=== PATIENT | male | born 1930 | race Caucasian/White ===

== ENCOUNTER 2016-07-22 20:46 | Inpatient (IN) | payer MEDICARE, MEDICAID ==
[2016-07-22] MEDS ORDERED: Furosemide 40 MG/4 ML VIAL IVPUSH ONE (21:32)
--- NOTE | 2016-07-22 21:33 | EDM.PDOC ---
ED HPI RENAL/ - General Chief Complaint: Genitourinary Problem Stated Complaint: [facility] Time Seen by Provider: 07/22/16 21:28 Source of Information: Reports: Family, pen[facility]iary records History Limitations: Reports: Altered mental status - History of Present Illness INITIAL COMMENTS - FREE TEXT/NARRATIVE: Patient was brought in by ambulance with concerns for labored breathing, hypoxia , occasional cough, cloudy urine, and pallor. Patient is non verbal and unable to provider any history. On review of medications, patient is not on any anticoagulants, no report of any trauma or recent similar history. In review of custodial records sent with patient, it appears that he was just started on prophylactic treatment with tamiflu on 07/14, taking once daily - Related Data Allergies/ADRs: Allergies Allergy/AdvReac Type Severity Reaction Status Date / Time levofloxacin [From Levaquin] Allergy Intermediate Rash Verified 07/23/16 00:44 Home Meds: Home Meds Acetaminophen [Acetaminophen 8 Hour] 650 mg PO BID 01/03/16 [History] Camphor/Menthol [Sarna Lotion] 1 applic TOP BID 01/03/16 [History] Docusate Sodium/Sennosides [Senna Plus] 2 tab PO BID 01/03/16 [History] Hydrocortisone Acetate [Hydrocortisone] 1 applic TP BID PRN 01/03/16 [History] Ketoconazole [Nizoral 2% Crm] 1 applic TOP DAILY 01/03/16 [History] Memantine [Namenda XR] 14 mg PO DAILY 01/03/16 [History] OLANZapine [Zyprexa] 15 mg PO BEDTIME 01/03/16 [History] Polyethylene Glycol 3350 [MiraLAX] 17 gm PO DAILY 01/03/16 [History] Potassium Chloride 20 meq PO DAILY 01/03/16 [History] Trospium Chloride 20 mg PO BID 01/03/16 [History] Insulin Aspart [NovoLOG] 2 units SQ 17 07/22/16 [History] Insulin Detemir [Levemir] 20 units SQ BID 07/22/16 [History] Oseltamivir [Tamiflu] 75 mg PO DAILY 07/22/16 [History] Aspirin 81 mg PO DAILY 07/23/16 [History] Bisacodyl [Dulcolax] 10 mg RECTAL DAILY PRN 07/23/16 [History] Cranberry Extract [Cranberry] 405 mg PO BID 07/23/16 [History] Menthol Cough Drops 1 lozenge PO Q2HR PRN 07/23/16 [History] Sennosides 17.2 mg PO DAILY PRN 07/23/16 [History] Zinc Oxide 1 applic TOP DAILY PRN 07/23/16 [History] Past Medical History HEENT History: Reports: Impaired vision Cardiovascular History: Reports: High cholesterol Respiratory History: Reports: COPD Genitourinary History: Reports: Prostate disorder, Retention, urinary Musculoskeletal History: Reports: Other (see below) Other Musculoskeletal History: spinal stenosis Neurological History: Reports: Other (see below) (Alzheimer dementia) Other Neuro History: dysphagia Psychiatric History: Reports: Alzheimers disease, Anxiety, Dementia, Depression Endocrine/Metabolic History: Reports: Diabetes, type II Oncologic (Cancer) History: Reports: Other (see below) (Skin cancer, NOS) Dermatologic History: Reports: Other (see below) Other Dermatologic History: freq skin breakdown, pt likes to scratch and pinch - Infectious Disease History Infectious Disease History: Reports: MRSA - Past Surgical History Male Surgical History: Reports: Suprapubic catheter placement Social & Family History - Family History Family Medical History: Unobtainable - Tobacco Use Smoking Status *Q: Never Smoker Second Hand Smoke Exposure: No - Caffeine Use Caffeine Use: Reports: None - Recreational Drug Use Recreational Drug Use: No - Living Situation & Occupation Living situation: Reports: extended care facility ED ROS GENERAL - Review of Systems Review Of Systems: See Below Constitutional: Denies: fever, chills Respiratory: Reports: Other (patient is nonverbal, brought in by ambulance with labored breathing, tachypnea, and occasional cough) Cardiovascular: Reports: No symptoms, Edema (patient with 3+ bilateral peripheral edema. ) GI/Abdominal: Reports: No symptoms : Reports: other (patient with indwelling catheter, urine was noted to be very cloudy) Skin: Reports: pallor Neurological: Reports: Other (patient is nonverbal) Psychiatric: Denies: Agitation ED EXAM, RENAL/ - Physical Exam Exam: See Below Exam Limited By: Altered mental status General Appearance: moderate distress, obese. No: alert, WD/WN Eye Exam: bilateral eye: other (has mild purulent discharge to medial canthus, no conjunctival injection or erythema, and PERRLA) Ears: hearing loss Throat/Mouth: No: Normal oropharynx (tongue is coated, oral mucosa is moist) Head: atraumatic Respiratory/Chest: decreased breath sounds (decreased breath sounds to right mid lung; left lower base. ). No: no respiratory distress (tachypnea at 36 resp /minute and patient is at 94% on 2L), rales, rhonchi, wheezing Cardiovascular: regular rate, rhythm, no murmur GI/Abdominal: normal bowel sounds, soft (Male) Exam: Other (indwelling catheter) Extremities: pedal edema (3+ bilateral pitting edema from distal feet to just inferior to knees). No: pallor Neurological: other (patient is non verbal, he is awake, alert, but unable to communicate). No: alert, oriented, normal cognition Skin Exam: Warm, Dry, Normal color, No rash. No: Cyanosis Course - Vital Signs Text/Narrative:: 2135 cxr, cbc, cmp, trop, crp, urine culture ordered lasix 40mg given for 3+ peripheral ed. 2240 patient is resting comfortably, Did review findings with family and advised I am awaiting troponin. Advised no acute findings on CXR, urine culture is pending, CBC showing mildly elevated WBC at 9.43. 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 She was agreeable to admission. I did advise of the following lab results: WBC 9.43 RBC 4.20 Hg 12.5 Sodium 145 K+ 3.8 Creatinine 1.0 Glucose 120 Troponin <.017 CRP 6.4 BNP 90 Did not test patient for influenza as he was started on tamiflu 75mg po once daily x 10 days on 07/14/16 due to recent outbreak at custodial. CXR does show a questionable small left sided pleural effusion, I do not appreciate any pulmonary consolidation, or pneumonia, however radiology report is pending. Image quality is decreased due to poor inspiratory effort. An EKG does not show any acute findings, do not have previous study for comparison Urine specimen obtained from catheter does reveal 2+ protein, 3+ occult blood, positive nitrites, 3+ leuk esterase, > 100 RBC, >100 WBC, and many bacteria. A urine culture is pending. patient was given lasix 40mg IV due to 3+ pitting edema to bilateral lower extremities. After speaking with Dr Arenas, she suggested patient remain NPO except for medications, and suggested starting levaquin 750mg which will be administered prior to transfer. Blood cultures are also pending. She did inquire about DNR status, and advised patient is a DNR. She inquired about DNI status, and this was discussed with family, and their wishes are that patient is intubated if medically necessary Patient will be transferred to [facility] for continuation of treatment under the care of Dr Arenas. 2357 Just following administration of levaquin, patient developed erythema, urticarial reaction surrounding IV site to dorsal aspect of left hand involving proximal phalanges #2, #3, #5. Does appear to be pruritic. Patient will be given benadryl 25mg IV. Patient had only received about 1/4 of dose of levaquin 750mg that was ordered, infusion had been running for approximately 15minutes before onset of local erythema and urticaria noted. Infusion was stopped. Will change medication to rocephin 2gm. Last Recorded V/S: Last Vital Signs Temp 98.2 F 07/23/16 12:56 Pulse 90 07/23/16 12:56 Resp 20 07/23/16 12:56 BP 142/68 H 07/23/16 12:56 Pulse Ox 90 L 07/23/16 12:56 - Orders/Labs/Meds Orders: Active Orders 24 hr Category Date Time Status CULTURE BLOOD [BC] Stat Lab 07/22/16 23:18 Received CULTURE BLOOD [BC] Stat Lab 07/22/16 23:30 Results CULTURE URINE [] Stat Lab 07/22/16 20:50 Results Medication Orders Acetaminophen (Tylenol) 650 mg PO BID [facility] Last Admin: 07/23/16 09:11 Dose: 650 mg Hydrocodone Bitart/Acetaminophen (Maynard 325-5 Mg) 1 tab PO Q4H PRN PRN Reason: Pain (moderate 4-6) Albuterol/Ipratropium (Duoneb 3.0-0.5 Mg/3 Ml) 3 ml NEB Q4H PRN PRN Reason: Shortness Of Breath/wheezing Aspirin (Aspirin) 81 mg PO DAILY [facility] Last Admin: 07/23/16 09:13 Dose: 81 mg Bisacodyl (Dulcolax) 10 mg RECTAL DAILY PRN PRN Reason: Constipation Dextrose/Water (Dextrose 50% In Water) 50 ml IVPUSH ASDIRECTED PRN PRN Reason: Hypoglycemia Enoxaparin Sodium (Lovenox) 40 mg SUBCUT DAILY [facility] Last Admin: 07/23/16 09:15 Dose: 40 mg Furosemide (Lasix) 20 mg IVPUSH DAILY [facility] Last Admin: 07/23/16 12:17 Dose: 20 mg Piperacillin Sod/Tazobactam (Sod 4.5 gm/ Sodium Chloride) 100 mls @ 25 mls/hr IV Q8H [facility] Insulin Aspart (Novolog) 2 unit SUBCUT ACDINNER [facility] Insulin Aspart (Novolog) 0 unit SUBCUT QIDACANDBED [facility] PRN Reason: Protocol Insulin Detemir (Levemir) 20 unit SUBCUT BID [facility] Last Admin: 07/23/16 09:21 Dose: 20 units Olanzapine (Zyprexa) 15 mg PO BEDTIME [facility] Ondansetron HCl (Zofran Odt) 4 mg PO Q4H PRN PRN Reason: nausea, able to take PO Ondansetron HCl (Zofran) 4 mg IV Q4H PRN PRN Reason: Nausea/Vomiting Camphor/Menthol 1 (Applic) 0 each TOP BID [facility] Last Admin: 07/23/16 09:16 Dose: Cranberry Extract [ (Cranberry] 405 Mg) 0 each PO BID [facility] Last Admin: 07/23/16 09:16 Dose: Ketoconazole 1 (Applic) 0 each TOP DAILY [facility] Last Admin: 07/23/16 09:17 Dose: Memantine 14 Mg 0 each PO DAILY [facility] Last Admin: 07/23/16 09:17 Dose: Polyethylene Glycol (Miralax) 17 gm PO DAILY [facility] Last Admin: 07/23/16 09:15 Dose: 17 gm Potassium Chloride (Klor-Con M20) 20 meq PO DAILY [facility] Last Admin: 07/23/16 09:11 Dose: 20 meq Saccharomyces Boulardii (Florastor) 250 mg PO BID [facility] Senna (Senna) 17.2 mg PO DAILY PRN PRN Reason: Constipation Senna/Docusate Sodium (Senna Plus) 2 tab PO BID PRN PRN Reason: CONSTIPATION Trospium (Sanctura) 20 mg PO BID [facility] Last Admin: 07/23/16 12:16 Dose: Labs: Laboratory Tests 07/22/16 07/22/16 07/22/16 Range/Units 20:50 21:40 21:40 WBC 9.43 H (4.23-9.07) K/mm3 RBC 4.20 L (4.63-6.08) M/mm3 Hgb 12.5 L (13.7-17.5) gm/L Hct 40.6 (40.1-51.0) % MCV 96.7 H (79.0-92.2) fl MCH 29.8 (25.7-32.2) pg MCHC 30.8 L (32.2-35.5) g/dl RDW Std Deviation 48.0 H (35.1-43.9) fL Plt Count 218 (163-337) K/mm3 MPV 10.1 (9.4-12.3) fl Neut % (Auto) 61.9 (34.0-67.9) % Lymph % (Auto) 18.7 L (21.8-53.1) % [place] % (Auto) 13.4 H (5.3-12.2) % Eos % (Auto) 5.3 (0.8-7.0) Baso % (Auto) 0.5 (0.1-1.2) % Neut # (Auto) 5.84 H (1.78-5.38) K/mm3 Lymph # (Auto) 1.76 (1.32-3.57) K/mm3 [place] # (Auto) 1.26 H (0.30-0.82) K/mm3 Eos # (Auto) 0.50 (0.04-0.54) K/mm3 Baso # (Auto) 0.05 (0.01-0.08) K/mm3 Sodium 145 (136-145) mEq/L Potassium 3.8 (3.5-5.1) mEq/L Chloride 108 H (98-107) mEq/L Carbon Dioxide 29 (21-32) mEq/L Anion Gap 11.8 (5-15) BUN 23 H (7-18) mg/dL Creatinine 1.0 (0.7-1.3) mg/dL Est Cr Clr Drug Dosing 50.35 mL/min Estimated GFR (MDRD) > 60 (>60) mL/min BUN/Creatinine Ratio 23.0 H (14-18) Glucose 120 H (83-115) mg/dL Calcium 8.8 (8.5-10.1) mg/dL Total Bilirubin 0.4 (0.2-1.0) mg/dL AST 15 (15-37) U/L ALT 13 L (16-63) U/L Alkaline Phosphatase 57 (46-116) U/L Troponin I < 0.017 (0.00-0.056) ng/mL C-Reactive Protein 6.4 H* (<1.0) mg/dL B-Natriuretic Peptide (0-100) pg/mL Total Protein 7.3 (6.4-8.2) g/dl Albumin 3.3 L (3.4-5.0) g/dl Globulin 4.0 gm/dL Albumin/Globulin Ratio 0.8 L (1-2) Urine Color Yellow (Yellow) Urine Appearance Cloudy H (Clear) Urine pH 6.0 (5.0-8.0) Ur Specific [place] 1.025 (1.005-1.030) Urine Protein 2+ H (Negative) Urine Glucose (UA) Negative (Negative) Urine Ketones Negative (Negative) Urine Occult Blood 3+ H (Negative) Urine Nitrite Positive H (Negative) Urine Bilirubin Negative (Negative) Urine Urobilinogen 1.0 (0.2-1.0) Ur Leukocyte Esterase 3+ H (Negative) Urine RBC >100 H (0-5) /hpf Urine WBC >100 H (0-5) /hpf Urine WBC Clumps Many (NOT SEEN) /hpf Ur Epithelial Cells 0-5 (0-5) /hpf Urine Bacteria Many H (FEW) /hpf Urine Mucus Not seen (FEW) /hpf 07/22/16 Range/Units 21:40 WBC (4.23-9.07) K/mm3 RBC (4.63-6.08) M/mm3 Hgb (13.7-17.5) gm/L Hct (40.1-51.0) % MCV (79.0-92.2) fl MCH (25.7-32.2) pg MCHC (32.2-35.5) g/dl RDW Std Deviation (35.1-43.9) fL Plt Count (163-337) K/mm3 MPV (9.4-12.3) fl Neut % (Auto) (34.0-67.9) % Lymph % (Auto) (21.8-53.1) % [place] % (Auto) (5.3-12.2) % Eos % (Auto) (0.8-7.0) Baso % (Auto) (0.1-1.2) % Neut # (Auto) (1.78-5.38) K/mm3 Lymph # (Auto) (1.32-3.57) K/mm3 [place] # (Auto) (0.30-0.82) K/mm3 Eos # (Auto) (0.04-0.54) K/mm3 Baso # (Auto) (0.01-0.08) K/mm3 Sodium (136-145) mEq/L Potassium (3.5-5.1) mEq/L Chloride (98-107) mEq/L Carbon Dioxide (21-32) mEq/L Anion Gap (5-15) BUN (7-18) mg/dL Creatinine (0.7-1.3) mg/dL Est Cr Clr Drug Dosing mL/min Estimated GFR (MDRD) (>60) mL/min BUN/Creatinine Ratio (14-18) Glucose (83-115) mg/dL Calcium (8.5-10.1) mg/dL Total Bilirubin (0.2-1.0) mg/dL AST (15-37) U/L ALT (16-63) U/L Alkaline Phosphatase (46-116) U/L Troponin I (0.00-0.056) ng/mL C-Reactive Protein (<1.0) mg/dL B-Natriuretic Peptide 90 (0-100) pg/mL Total Protein (6.4-8.2) g/dl Albumin (3.4-5.0) g/dl Globulin gm/dL Albumin/Globulin Ratio (1-2) Urine Color (Yellow) Urine Appearance (Clear) Urine pH (5.0-8.0) Ur Specific [place] (1.005-1.030) Urine Protein (Negative) Urine Glucose (UA) (Negative) Urine Ketones (Negative) Urine Occult Blood (Negative) Urine Nitrite (Negative) Urine Bilirubin (Negative) Urine Urobilinogen (0.2-1.0) Ur Leukocyte Esterase (Negative) Urine RBC (0-5) /hpf Urine WBC (0-5) /hpf Urine WBC Clumps (NOT SEEN) /hpf Ur Epithelial Cells (0-5) /hpf Urine Bacteria (FEW) /hpf Urine Mucus (FEW) /hpf Meds: Medications Generic Name Dose Route Start Last Admin Trade Name Freq PRN Reason Stop Dose Admin Acetaminophen 650 mg 07/23/16 09:00 07/23/16 09:11 Tylenol PO 650 mg BID [facility] Administration Hydrocodone Bitart/Acetaminophen 1 tab 07/23/16 09:41 Maynard 325-5 Mg PO Q4H PRN Pain (moderate 4-6) Albuterol/Ipratropium 3 ml 07/23/16 09:41 Duoneb 3.0-0.5 Mg/3 Ml NEB Q4H PRN Shortness Of Breath/wheezing Aspirin 81 mg 07/23/16 09:00 07/23/16 09:13 Aspirin PO 81 mg DAILY [facility] Administration Bisacodyl 10 mg 07/23/16 08:33 Dulcolax RECTAL DAILY PRN Constipation Dextrose/Water 50 ml 07/23/16 11:02 Dextrose 50% In Water IVPUSH ASDIRECTED PRN Hypoglycemia Enoxaparin Sodium 40 mg 07/23/16 09:00 07/23/16 09:15 Lovenox SUBCUT 40 mg DAILY [facility] Administration Furosemide 20 mg 07/23/16 10:30 07/23/16 12:17 Lasix IVPUSH 20 mg DAILY [facility] Administration Piperacillin Sod/Tazobactam 100 mls @ 25 mls/hr 07/23/16 20:00 Sod 4.5 gm/ Sodium Chloride IV Q8H [facility] Insulin Aspart 2 unit 07/23/16 16:00 Novolog SUBCUT ACDINNER [facility] Insulin Aspart 0 unit 07/23/16 17:00 Novolog SUBCUT QIDACANDBED [facility] Protocol Insulin Detemir 20 unit 07/23/16 09:00 07/23/16 09:21 Levemir SUBCUT 20 units BID [facility] Administration Olanzapine 15 mg 07/23/16 21:00 Zyprexa PO BEDTIME [facility] Ondansetron HCl 4 mg 07/23/16 09:41 Zofran Odt PO Q4H PRN nausea, able to take PO Ondansetron HCl 4 mg 07/23/16 09:41 Zofran IV Q4H PRN Nausea/Vomiting Camphor/Menthol 1 0 each 07/23/16 09:00 07/23/16 09:16 Applic TOP Not Given BID [facility] Cranberry Extract [ 0 each 07/23/16 09:00 07/23/16 09:16 Cranberry] 405 Mg PO Not Given BID [facility] Ketoconazole 1 0 each 07/23/16 09:00 07/23/16 09:17 Applic TOP Not Given DAILY [facility] Memantine 14 Mg 0 each 07/23/16 09:00 07/23/16 09:17 PO Not Given DAILY [facility] Polyethylene Glycol 17 gm 07/23/16 09:00 07/23/16 09:15 Miralax PO 17 gm DAILY [facility] Administration Potassium Chloride 20 meq 07/23/16 09:00 07/23/16 09:11 Klor-Con M20 PO 20 meq DAILY [facility] Administration Saccharomyces Boulardii 250 mg 07/23/16 21:00 Florastor PO BID [facility]ON Senna 17.2 mg 07/23/16 08:33 Senna PO DAILY PRN Constipation Senna/Docusate Sodium 2 tab 07/23/16 09:00 Senna Plus PO BID PRN CONSTIPATION Trospium 20 mg 07/23/16 09:00 07/23/16 12:16 Sanctura PO Not Given BID [facility] Discontinued Medications Generic Name Dose Route Start Last Admin Trade Name Galoq PRN Reason Stop Dose Admin Diphenhydramine HCl 25 mg 07/22/16 23:54 07/22/16 23:57 Benadryl IVPUSH 07/22/16 23:55 25 mg ONETIME ONE Administration Diphenhydramine HCl Confirm 07/22/16 23:56 07/22/16 23:57 Benadryl Administered 07/22/16 23:57 Not Given Dose 50 mg .ROUTE .STK-MED ONE Furosemide 40 mg 07/22/16 21:32 07/22/16 21:47 Lasix IVPUSH 07/22/16 21:33 40 mg NOW ONE Administration Furosemide 20 mg 07/23/16 01:39 07/23/16 02:32 Lasix IVPUSH 07/23/16 01:40 20 mg ONETIME ONE Administration Levofloxacin/Dextrose 750 mg/ 150 mls @ 100 mls/hr 07/22/16 23:30 07/22/16 23 :31 Premix IV 100 mls/hr Q24H [facility]ON Administration Ceftriaxone Sodium 2 gm/ 100 mls @ 200 mls/hr 07/23/16 00:10 07/23/16 00:16 Sodium Chloride IV 07/23/16 00:39 200 mls/hr ONETIME ONE Administration Ceftriaxone Sodium 1 gm/ 100 mls @ 200 mls/hr 07/23/16 10:30 07/23/16 12:29 Sodium Chloride IV Not Given Q24H [facility]OON Piperacillin Sod/Tazobactam 100 mls @ 200 mls/hr 07/23/16 12:00 07/23/16 12: 26 Sod 4.5 gm/ Sodium Chloride IV 07/23/16 12:29 200 mls/hr ONETIME ONE Administration Departure - Departure Time of Disposition: 23:30 Disposition: Admitted As Inpatient 65 Condition: fair Clinical Impression: Acute UTI, Hypoxia, Peripheral edema, Tachypnea - My Orders Last 24 Hours: My Active Orders 07/22/16 20:50 CULTURE URINE [RM] Stat 07/22/16 23:18 CULTURE BLOOD [BC] Stat 07/22/16 23:30 CULTURE BLOOD [BC] Stat - Assessment/Plan Last 24 Hours: My Active Orders 07/22/16 20:50 CULTURE URINE [RM] Stat 07/22/16 23:18 CULTURE BLOOD [BC] Stat 07/22/16 23:30 CULTURE BLOOD [BC] Stat
[2016-07-22] MEDS ORDERED: Levofloxacin 750 MG Tab PO SCH (23:15)
[2016-07-22] MEDS ORDERED: Levofloxacin/Dextrose 5%-Water 750 MG in Premix Bag 1 BAG IV SCH (23:30)
[2016-07-22] MEDS ORDERED: diphenhydrAMINE 50 MG/ML SDV IVPUSH ONE (23:54)
[2016-07-22] MEDS ORDERED: diphenhydrAMINE 50 MG/ML SDV ONE (23:56)
[2016-07-23] MEDS ORDERED: cefTRIAXone 2 GM in Sodium Chloride 0.9% 100 ML IV ONE (00:10)
[2016-07-23] MEDS ORDERED: Furosemide 20 MG/2 ML VIAL IVPUSH ONE (01:39)
--- NOTE | 2016-07-23 06:45 | CR ---
Chest: Portable view of the chest was obtained. Comparison: Previous chest x-ray of 05/23/11. Heart size is normal. Upper mediastinum is widened which is stable. Minimal atelectasis noted within the left base. Lungs otherwise are clear. Bony structures are grossly intact. Impression: 1. Mild atelectasis within the left base. 2. Nothing acute is otherwise seen on frontal chest x-ray. Diagnostic code #2
[2016-07-23] MEDS ORDERED: Bisacodyl 10 MG Supp RECTAL PRN (08:33)
[2016-07-23] MEDS ORDERED: Sennosides 8.6 MG Tab PO PRN (08:33)
[2016-07-23] MEDS: Potassium Chloride 20 MEQ Tab.ER PO SCH (09:11)
[2016-07-23] MEDS: Acetaminophen 325 MG Tab PO SCH ×2 (09:11→20:14)
[2016-07-23] MEDS: Aspirin 81 MG Tab.Chew PO SCH (09:13)
[2016-07-23] MEDS: Polyethylene Glycol 3350 Powder 17 GM Packet PO SCH (09:15)
[2016-07-23] MEDS: Enoxaparin 40 MG/0.4 ML Syringe SUBCUT SCH (09:15)
[2016-07-23] MEDS: CRANBERRY EXTRACT 405 MG PO SCH ×2 (09:16→20:03)
[2016-07-23] MEDS: CAMPHOR TOP SCH ×2 (09:16→20:03)
[2016-07-23] MEDS: MENTHOL TOP SCH ×2 (09:16→20:03)
[2016-07-23] MEDS: MEMANTINE 14 MG PO SCH (09:17)
[2016-07-23] MEDS: KETOCONAZOLE TOP SCH (09:17)
[2016-07-23] MEDS: Insulin Detemir 100 Units/ML 3 ML Pen SUBCUT SCH ×2 (09:21→20:59)
[2016-07-23] MEDS ORDERED: Ondansetron 4 MG/2 ML SDV IV PRN (09:41)
[2016-07-23] MEDS ORDERED: Albuterol/Ipratropium 3.0-0.5 MG/3 ML Neb Soln NEB PRN (09:41)
[2016-07-23] MEDS ORDERED: Acetaminophen/HYDROcodone 325-5 MG Tab PO PRN (09:41)
[2016-07-23] MEDS ORDERED: Ondansetron 4 MG Tab.DIS PO PRN (09:41)
[2016-07-23] MEDS ORDERED: cefTRIAXone 1 GM in Sodium Chloride 0.9% 100 ML IV SCH (10:30)
--- NOTE | 2016-07-23 10:41 | PCM.HP ---
H&P History of Present Illness - General Date of Service: 07/23/16 Admit Problem/Dx: Admission Diagnosis/Problem Admission Diagnosis/Problem UTI, Urinary tract infectious disease Source of Information: Old records, Other History Limitations: Reports: Altered mental status (dementia), Language barrier (nonverbal due to end stage dementia), Physical impairment - History of Present Illness Initial Comments - Free Text/Narative: Mr Dumont is an 86yo male resident of [facility], PMH significant for alzheimers dementia, DM insulin dependent, BPH, obstructive uropathy, chronic suprapubic catheter, recurrent UTI, dysphagia (level 3 diet at [place]), hx of anemia , COPD, HLD, hx of skin cancer, brought in for fever, generalized weakness- worsening, cough. There has been a flu epidemic at the [place] where he resides, he has been on prophylactic tamiflu x 8 days. He came into ED hypoxic and tachypnic. He has 3+ edema to LE, rec'd IV lasix in the ED along with Rocephin IV to initiate tx for UTI. ER evaluation reveals AUTI with hematuria, hospitalist service is consulted for admission. - Related Data Allergies/Adverse Reactions: Allergies Allergy/AdvReac Type Severity Reaction Status Date / Time levofloxacin [From Levaquin] Allergy Intermediate Rash Verified 07/23/16 00:44 Home Medications: Home Meds Acetaminophen [Acetaminophen 8 Hour] 650 mg PO BID 01/03/16 [History] Camphor/Menthol [Sarna Lotion] 1 applic TOP BID 01/03/16 [History] Docusate Sodium/Sennosides [Senna Plus] 2 tab PO BID 01/03/16 [History] Hydrocortisone Acetate [Hydrocortisone] 1 applic TP BID PRN 01/03/16 [History] Ketoconazole [Nizoral 2% Crm] 1 applic TOP DAILY 01/03/16 [History] Memantine [Namenda XR] 14 mg PO DAILY 01/03/16 [History] OLANZapine [Zyprexa] 15 mg PO BEDTIME 01/03/16 [History] Polyethylene Glycol 3350 [MiraLAX] 17 gm PO DAILY 01/03/16 [History] Potassium Chloride 20 meq PO DAILY 01/03/16 [History] Trospium Chloride 20 mg PO BID 01/03/16 [History] Insulin Aspart [NovoLOG] 2 units SQ 17 07/22/16 [History] Insulin Detemir [Levemir] 20 units SQ BID 07/22/16 [History] Oseltamivir [Tamiflu] 75 mg PO DAILY 07/22/16 [History] Aspirin 81 mg PO DAILY 07/23/16 [History] Bisacodyl [Dulcolax] 10 mg RECTAL DAILY PRN 07/23/16 [History] Cranberry Extract [Cranberry] 405 mg PO BID 07/23/16 [History] Menthol Cough Drops 1 lozenge PO Q2HR PRN 07/23/16 [History] Sennosides 17.2 mg PO DAILY PRN 07/23/16 [History] Zinc Oxide 1 applic TOP DAILY PRN 07/23/16 [History] Past Medical History HEENT History: Reports: Impaired vision Cardiovascular History: Reports: High cholesterol Respiratory History: Reports: COPD Gastrointestinal History: Reports: Chronic constipation Genitourinary History: Reports: BPH, Prostate disorder, Pyelonephritis, Retention, urinary, UTI, recurrent, Other (see below) Other Genitourinary History: obstructive and reflux uropathy Musculoskeletal History: Reports: Other (see below) Other Musculoskeletal History: spinal stenosis, generalized weakness, fall, difficulty walking, chronic pain Neurological History: Reports: Alzheimers disease, Other (see below) Other Neuro History: dysphagia, dementia Psychiatric History: Reports: Alzheimers disease, Anxiety, Dementia, Depression , Schizophrenia, Other (see below) Other Psychiatric History: insomnia Endocrine/Metabolic History: Reports: Diabetes, type II Oncologic (Cancer) History: Reports: Other (see below) Other Oncologic History: hx malignant neoplasm of skin to face Dermatologic History: Reports: Other (see below) Other Dermatologic History: freq skin breakdown, pt likes to scratch and pinch - Infectious Disease History Infectious Disease History: Reports: MRSA - Past Surgical History Male Surgical History: Reports: Suprapubic catheter placement Social & Family History - Family History Family Medical History: Unobtainable - Tobacco Use Smoking Status *Q: Unknown Ever Smoked Second Hand Smoke Exposure: No - Caffeine Use Caffeine Use: Reports: None - Recreational Drug Use Recreational Drug Use: No - Living Situation & Occupation Living situation: Reports: extended care facility H&P Review of Systems - Review of Systems: Review Of Systems: See Below General: Reports: fever, weakness HEENT: Reports: no symptoms Pulmonary: Reports: Cough Cardiovascular: Reports: edema (3+ documented in ED notes and currently). Denies: chest pain Gastrointestinal: Denies: Diarrhea, Vomiting Genitourinary: Reports: other (suprapubic catheter) Neurological: Reports: Other (end stage dementia; nonverbal) Exam - Exam Exam: See Below - Vital Signs Vital Signs: Last Vital Signs Temp 98.4 F 07/23/16 09:11 Pulse 76 07/23/16 07:40 Resp 20 07/23/16 07:40 BP 149/88 H 07/23/16 07:40 Pulse Ox 91 L 07/23/16 07:40 Weight: 284 lb 4.8 oz - Exam Quality Assessment: urinary catheter (suprapubic), DVT prophylaxis General: alert, other (no obvious distress) HEENT: Conjunctiva clear, EOMI, Pupils equal Neck: supple Lungs: Normal respiratory effort, Decreased breath sounds (to bases) Cardiovascular: regular rate, regular rhythm, systolic murmur (grade 1-2) Abdomen: normal bowel sounds, soft. No: organomegaly, guarding, rigidity, rebound, tenderness (Male) Exam: Other (suprapubic site is with mild erythema, moist and with small amt of light yellow drainage from site). No: Suprapubic fullness Rectal (Males) Exam: Deferred Extremities: edema (3+ pitting edema from feet to knees) Peripheral Pulses: 1+: dorsalis pedis (L), dorsalis pedis (R) Skin: warm, dry, intact Neurological: other (difficult to assess due to end stage dementia) Neuro Extensive - Mental Status: alert, other (awake and alert; unable to determine orientation status due to dementia) Psychiatric: alert - Patient Data Lab Results last 24 hrs: Laboratory Results - last 24 hr 07/23/16 07/23/16 Range/Units 09:08 09:08 WBC 11.04 H (4.23-9.07) K/mm3 RBC 4.64 (4.63-6.08) M/mm3 Hgb 13.9 (13.7-17.5) gm/L Hct 44.7 (40.1-51.0) % MCV 96.3 H (79.0-92.2) fl MCH 30.0 (25.7-32.2) pg MCHC 31.1 L (32.2-35.5) g/dl RDW Std Deviation 48.0 H (35.1-43.9) fL Plt Count 194 (163-337) K/mm3 MPV 9.9 (9.4-12.3) fl Neut % (Auto) 69.0 H (34.0-67.9) % Lymph % (Auto) 14.8 L (21.8-53.1) % [place] % (Auto) 12.8 H (5.3-12.2) % Eos % (Auto) 2.6 (0.8-7.0) Baso % (Auto) 0.6 (0.1-1.2) % Neut # (Auto) 7.62 H (1.78-5.38) K/mm3 Lymph # (Auto) 1.63 (1.32-3.57) K/mm3 [place] # (Auto) 1.41 H (0.30-0.82) K/mm3 Eos # (Auto) 0.29 (0.04-0.54) K/mm3 Baso # (Auto) 0.07 (0.01-0.08) K/mm3 Sodium 147 H (136-145) mEq/L Potassium 3.2 L (3.5-5.1) mEq/L Chloride 107 (98-107) mEq/L Carbon Dioxide 32 (21-32) mEq/L Anion Gap 11.2 (5-15) BUN 19 H (7-18) mg/dL Creatinine 1.0 (0.7-1.3) mg/dL Est Cr Clr Drug Dosing 50.35 mL/min Estimated GFR (MDRD) > 60 (>60) mL/min BUN/Creatinine Ratio 19.0 H (14-18) Glucose 113 (83-115) mg/dL Calcium 8.8 (8.5-10.1) mg/dL Magnesium 2.0 (1.8-2.4) mg/dl C-Reactive Protein 9.7 H* (<1.0) mg/dL Result Diagrams: 07/23/16 09:08 07/23/16 09:08 EKG INTERPRETATION EKG Date: 07/22/16 Time: 21:40 Rhythm: other (sinus rhythm; 1st degree AVB; PVC's, probable old septal infarct ; no prior EKG for comparison) Comparison: NA - no prior EKG *Q Meaningful Use (ADM) - VTE *Q VTE Criteria *Q: - Stroke *Q Stroke Criteria *Q: - AMI *Q AMI Criteria *Q: - Problem List (1) Acute UTI SNOMED Code(s): 464360647 ICD Code: N39.0 - URINARY TRACT INFECTION, SITE NOT SPECIFIED Status: Acute Priority: High Current Visit: Yes (2) Hematuria SNOMED Code(s): 89686328 ICD Code: R31.9 - HEMATURIA, UNSPECIFIED Status: Acute Priority: High Current Visit: Yes (3) Alzheimer's dementia SNOMED Code(s): 57751531 ICD Code: G30.9 - ALZHEIMER'S DISEASE, UNSPECIFIED Status: Chronic Priority: Medium Current Visit: No Qualifiers: Alzheimer's disease onset: unspecified onset Dementia behavioral disturbance: without behavioral disturbance Qualified Code(s): G30.9 - Alzheimer's disease, unspecified; F02.80 - Dementia in other diseases classified elsewhere without behavioral disturbance (4) Suprapubic catheter SNOMED Code(s): 013157613, 831741719 ICD Code: Z93.59 - OTHER CYSTOSTOMY STATUS Status: Chronic Priority: Medium Current Visit: Yes (5) Obstructive uropathy SNOMED Code(s): 4785405 ICD Code: N13.9 - OBSTRUCTIVE AND REFLUX UROPATHY, UNSPECIFIED Status: Chronic Priority: Medium Current Visit: Yes (6) Hypoxia SNOMED Code(s): 584791098, 416686396 ICD Code: R09.02 - HYPOXEMIA Status: Acute Priority: High Current Visit : Yes (7) Peripheral edema SNOMED Code(s): 829751924 ICD Code: R60.9 - EDEMA, UNSPECIFIED Status: Acute Priority: High Current Visit: Yes (8) Tachypnea SNOMED Code(s): 783105882 ICD Code: R06.82 - TACHYPNEA, NOT ELSEWHERE CLASSIFIED Status: Acute Priority: High Current Visit: Yes Problem List Initiated/Reviewed/Updated: Yes Orders Last 24hrs: Active Orders 24 hr Category Date Time Status Patient Status [ADT] Routine ADT 07/23/16 09:42 Ordered Antiembolic Devices [RC] PER UNIT ROUTINE Care 07/23/16 09:48 Ordered Blood Glucose Check, Bedside [RC] QIDACANDBED Care 07/23/16 09:41 Ordered Height and Weight [RC] DAILY Care 07/23/16 09:41 Ordered Intake and Output [RC] QSHIFT Care 07/23/16 09:44 Ordered Oxygen Therapy [RC] ASDIRECTED Care 07/23/16 01:40 Active Oxygen Therapy [RC] PRN Care 07/23/16 09:42 Ordered RT Aerosol Therapy [RC] ASDIRECTED Care 07/23/16 09:48 Ordered Up to Chair [RC] QSHIFT Care 07/23/16 09:41 Ordered VTE/DVT Education [RC] PER UNIT ROUTINE Care 07/23/16 09:42 Ordered Vital Signs [RC] Q4H Care 07/23/16 09:42 Ordered Consult to Case Management [CONS] Routine Cons 07/23/16 09:41 Ordered Consult to Porcelain Enamel Repairer [CONS] Routine Cons 07/23/16 09:41 Ordered MOTION PICTURE CRITIC Evaluation and Treatment [CONS] Routine Cons 07/23/16 09:41 Ordered Nothing per Oral Now Diet [DIET] Diet 07/23/16 Lunch Ordered Echo Comp wo Cont [US] Routine Exams 07/23/16 10:22 Ordered B-TYPE NATRIURETIC PEPTIDE,BNP [CHEM] Routine Lab 07/23/16 10:24 Ordered BASIC METABOLIC PANEL,BMP [CHEM] DAILY Lab 07/24/16 05:00 Ordered BASIC METABOLIC PANEL,BMP [CHEM] DAILY Lab 07/25/16 05:00 Ordered BASIC METABOLIC PANEL,BMP [CHEM] DAILY Lab 07/26/16 05:00 Ordered BASIC METABOLIC PANEL,BMP [CHEM] DAILY Lab 07/27/16 05:00 Ordered BASIC METABOLIC PANEL,BMP [CHEM] DAILY Lab 07/28/16 05:00 Ordered C-REACTIVE PROTEIN [CHEM] DAILY Lab 07/24/16 05:00 Ordered C-REACTIVE PROTEIN [CHEM] DAILY Lab 07/25/16 05:00 Ordered C-REACTIVE PROTEIN [CHEM] DAILY Lab 07/26/16 05:00 Ordered C-REACTIVE PROTEIN [CHEM] DAILY Lab 07/27/16 05:00 Ordered C-REACTIVE PROTEIN [CHEM] DAILY Lab 07/28/16 05:00 Ordered CBC W/O DIFF,HEMOGRAM [HEME] MOTH@0700 Lab 07/24/16 07:00 Ordered CBC W/O DIFF,HEMOGRAM [HEME] MOTH@0700 Lab 07/28/16 07:00 Ordered CBC W/O DIFF,HEMOGRAM [HEME] MOTH@0700 Lab 07/31/16 07:00 Ordered CBC W/O DIFF,HEMOGRAM [HEME] MOTH@0700 Lab 08/04/16 07:00 Ordered CBC W/O DIFF,HEMOGRAM [HEME] MOTH@0700 Lab 08/07/16 07:00 Ordered CBC W/O DIFF,HEMOGRAM [HEME] MOTH@0700 Lab 08/11/16 07:00 Ordered CBC WITH AUTO DIFF [HEME] DAILY Lab 07/24/16 05:00 Ordered CBC WITH AUTO DIFF [HEME] DAILY Lab 07/25/16 05:00 Ordered CBC WITH AUTO DIFF [HEME] DAILY Lab 07/26/16 05:00 Ordered CBC WITH AUTO DIFF [HEME] DAILY Lab 07/27/16 05:00 Ordered CBC WITH AUTO DIFF [HEME] DAILY Lab 07/28/16 05:00 Ordered MAGNESIUM [CHEM] DAILY Lab 07/24/16 05:00 Ordered MAGNESIUM [CHEM] DAILY Lab 07/25/16 05:00 Ordered MAGNESIUM [CHEM] DAILY Lab 07/26/16 05:00 Ordered MAGNESIUM [CHEM] DAILY Lab 07/27/16 05:00 Ordered MAGNESIUM [CHEM] DAILY Lab 07/28/16 05:00 Ordered Acetaminophen [Tylenol] Med 07/23/16 09:00 Active 650 mg PO BID Acetaminophen/HYDROcodone [[place] 325-5 MG] Med 07/23/16 09:41 Ordered 1 tab PO Q4H PRN Albuterol/Ipratropium [DuoNeb 3.0-0.5 MG/3 ML] Med 07/23/16 09:41 Ordered 3 ml NEB Q4H PRN Aspirin Med 07/23/16 09:00 Active 81 mg PO DAILY Bisacodyl [Dulcolax] Med 07/23/16 08:33 Active 10 mg RECTAL DAILY PRN Docusate Sodium/Sennosides [Senna Plus] Med 07/23/16 09:00 Active 2 tab PO BID PRN Enoxaparin [Lovenox] Med 07/23/16 09:00 Active 40 mg SUBCUT DAILY Furosemide [Lasix] Med 07/23/16 10:30 Ordered 20 mg IVPUSH DAILY Insulin Aspart [NovoLOG] Med 07/23/16 16:00 Active 2 unit SUBCUT ACDINNER Insulin Detemir [Levemir] Med 07/23/16 09:00 Active 20 unit SUBCUT BID OLANZapine [ZyPREXA] Med 07/23/16 21:00 Active 15 mg PO BEDTIME Ondansetron [Zofran ODT] Med 07/23/16 09:41 Ordered 4 mg PO Q4H PRN Ondansetron [Zofran] Med 07/23/16 09:41 Ordered 4 mg IV Q4H PRN Patient's Own Medication [Ptom] Med 07/23/16 09:00 Active 0 each PO BID Patient's Own Medication [Ptom] Med 07/23/16 09:00 Active 0 each PO DAILY Patient's Own Medication [Ptom] Med 07/23/16 09:00 Active 0 each TOP BID Patient's Own Medication [Ptom] Med 07/23/16 09:00 Active 0 each TOP DAILY Polyethylene Glycol 3350 [MiraLAX] Med 07/23/16 09:00 Active 17 gm PO DAILY Potassium Chloride [Klor-Con M20] Med 07/23/16 09:00 Active 20 meq PO DAILY Sennosides [Senna] Med 07/23/16 08:33 Active 17.2 mg PO DAILY PRN Trospium [Sanctura] Med 07/23/16 09:00 Active 20 mg PO BID cefTRIAXone [Rocephin] 1 gm Med 07/23/16 10:30 Ordered Sodium Chloride 0.9% [Normal Saline] 100 ml IV Q24H Antiembolic Hose [OM.PC] Per Unit Routine Oth 07/23/16 09:45 Ordered Resuscitation Status Routine Resus Stat 07/22/16 23:56 Ordered Medication Orders Acetaminophen (Tylenol) 650 mg PO BID [facility] Last Admin: 07/23/16 09:11 Dose: 650 mg Hydrocodone Bitart/Acetaminophen ([place] 325-5 Mg) 1 tab PO Q4H PRN PRN Reason: Pain (moderate 4-6) Albuterol/Ipratropium (Duoneb 3.0-0.5 Mg/3 Ml) 3 ml NEB Q4H PRN PRN Reason: Shortness Of Breath/wheezing Aspirin (Aspirin) 81 mg PO DAILY [facility] Last Admin: 07/23/16 09:13 Dose: 81 mg Bisacodyl (Dulcolax) 10 mg RECTAL DAILY PRN PRN Reason: Constipation Enoxaparin Sodium (Lovenox) 40 mg SUBCUT DAILY [facility] Last Admin: 07/23/16 09:15 Dose: 40 mg Furosemide (Lasix) 20 mg IVPUSH DAILY [facility] Ceftriaxone Sodium 1 gm/ (Sodium Chloride) 100 mls @ 200 mls/hr IV Q24H [facility] Insulin Aspart (Novolog) 2 unit SUBCUT ACDINNER [facility] Insulin Detemir (Levemir) 20 unit SUBCUT BID [facility] Last Admin: 07/23/16 09:21 Dose: 20 units Olanzapine (Zyprexa) 15 mg PO BEDTIME [facility] Ondansetron HCl (Zofran Odt) 4 mg PO Q4H PRN PRN Reason: nausea, able to take PO Ondansetron HCl (Zofran) 4 mg IV Q4H PRN PRN Reason: Nausea/Vomiting Camphor/Menthol 1 (Applic) 0 each TOP BID [facility] Last Admin: 07/23/16 09:16 Dose: Cranberry Extract [ (Cranberry] 405 Mg) 0 each PO BID [facility] Last Admin: 07/23/16 09:16 Dose: Ketoconazole 1 (Applic) 0 each TOP DAILY [facility] Last Admin: 07/23/16 09:17 Dose: Memantine 14 Mg 0 each PO DAILY [facility] Last Admin: 07/23/16 09:17 Dose: Polyethylene Glycol (Miralax) 17 gm PO DAILY [facility] Last Admin: 07/23/16 09:15 Dose: 17 gm Potassium Chloride (Klor-Con M20) 20 meq PO DAILY [facility] Last Admin: 07/23/16 09:11 Dose: 20 meq Senna (Senna) 17.2 mg PO DAILY PRN PRN Reason: Constipation Senna/Docusate Sodium (Senna Plus) 2 tab PO BID PRN PRN Reason: CONSTIPATION Trospium (Sanctura) 20 mg PO BID [facility] Assessment/Plan Comment:: AUTI with chronic suprapubic catheter due to obstructive uropathy/BPH -Rocephin given in ED, will continue with this until UC/US returned -Risk factors: suprapubic cath, bedbound status, end stage dementia, dysphagia- with likely poor PO intake -Nursing to do daily dressing change to cath site -UC with GNR as preliminary Tachypnea with hypoxia -Supplemental oxygen- improved, continue with supplemental oxygen PRN -CXR with mild atelectasis -Recent flu exposure at [place], has been on prophylactic tamiflu x 8 days; will obtain flu screen Peripheral edema -Significant to bilateral lower extremities -Diuresed well with IV lasix overnight -Will obtain BNP and echocardiogram today -Cont with lasix for now, may transition to PO lasix tomorrow -Monitor K+ and Mg- replace if needed DM- type 2 -AC & HS accuchecks - Cont home insulin -SSI during hospital stay -A1C today Alzheimers dementia with dysphagia- chronic -MOTION PICTURE CRITIC for swallow eval; NPO until after eval/recommendations GI/DVT prophylax CM/SW for dc planning- plan dc back to [place] once stable Cont with daily am labs: CBC, BMP, CRP and Mag Patient is DNR but does wish DNI if needed.
[2016-07-23] MEDS ORDERED: 50% Dextrose in Water 50 ML Syringe IVPUSH PRN (11:02)
[2016-07-23] MEDS ORDERED: Piperacillin/Tazobactam 4.5 GM in Sodium Chloride 0.9% 100 ML IV ONE (12:00)
[2016-07-23] MEDS: Trospium 20 MG Tab PO SCH ×2 (12:16→20:18)
[2016-07-23] MEDS: Furosemide 20 MG/2 ML VIAL IVPUSH SCH (12:17)
[2016-07-23] MEDS: Insulin Aspart 100 Units/ML 3 ML Pen SUBCUT SCH ×3 (16:28→20:59)
[2016-07-23] MEDS: OLANZapine 5 MG Tab PO SCH (20:14)
[2016-07-23] MEDS: Saccharomyces Boulardii (Probiotic) 250 MG Cap PO SCH (20:16)
[2016-07-23] MEDS: Piperacillin/Tazobactam 4.5 GM in Sodium Chloride 0.9% 100 ML IV SCH (20:18)
[2016-07-24] MEDS: Piperacillin/Tazobactam 4.5 GM in Sodium Chloride 0.9% 100 ML IV SCH ×3 (04:04→22:05)
[2016-07-24] MEDS: Insulin Aspart 100 Units/ML 3 ML Pen SUBCUT SCH ×5 (06:22→22:07)
[2016-07-24] MEDS: Trospium 20 MG Tab PO SCH ×2 (08:50→22:06)
[2016-07-24] MEDS: Acetaminophen 325 MG Tab PO SCH ×2 (08:50→22:07)
[2016-07-24] MEDS: Aspirin 81 MG Tab.Chew PO SCH (08:50)
[2016-07-24] MEDS: Saccharomyces Boulardii (Probiotic) 250 MG Cap PO SCH ×2 (08:52→22:06)
[2016-07-24] MEDS: Enoxaparin 40 MG/0.4 ML Syringe SUBCUT SCH (08:52)
[2016-07-24] MEDS: Furosemide 20 MG/2 ML VIAL IVPUSH SCH (08:52)
[2016-07-24] MEDS: Polyethylene Glycol 3350 Powder 17 GM Packet PO SCH (08:52)
[2016-07-24] MEDS: Insulin Detemir 100 Units/ML 3 ML Pen SUBCUT SCH ×2 (08:53→22:08)
[2016-07-24] MEDS: CRANBERRY EXTRACT 405 MG PO SCH ×2 (08:54→22:09)
[2016-07-24] MEDS: Potassium Chloride 20 MEQ Tab.ER PO SCH (08:54)
[2016-07-24] MEDS: CAMPHOR TOP SCH ×2 (08:54→22:09)
[2016-07-24] MEDS: MEMANTINE 14 MG PO SCH (08:54)
[2016-07-24] MEDS: KETOCONAZOLE TOP SCH (08:54)
[2016-07-24] MEDS: MENTHOL TOP SCH ×2 (08:54→22:09)
[2016-07-24] MEDS ORDERED: Potassium Chloride 10% 20 MEQ/15 ML Soln 30 ML UD Cup PO ONE (09:43)
[2016-07-24] MEDS ORDERED: Saccharomyces Boulardii (Probiotic) 250 MG Cap PO SCH (10:45)
[2016-07-24] MEDS ORDERED: Oseltamivir 30 MG Cap PO SCH (12:00)
--- NOTE | 2016-07-24 12:38 | PCM.PN ---
- General Info Date of Service: 07/24/16 Admission Dx/Problem (Free Text): Admission Diagnosis/Problem Admission Diagnosis/Problem UTI, Urinary tract infectious disease Dominic is an 86yo male admitted through ER with AUTI- ecoli organism on UC. He is being treated with IV Zosyn thus far. He has been febrile overnight. 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 He is resting comfortably on my exam this morning, appears in no acute distress. Does not make eye contact or any sort of communication. Lab called this am with report that 3/4 bottles for blood cultures are + for GNR , no organism or sensitivity yet. UC is + for ecoli. Last evening flu A and B returned positive also. CRP continues to trend up and is 14.7 this am. Functional Status: Reports: urinating (suprapubic cath draining urine) - Review of Systems General: Reports: Fever Pulmonary: Denies: shortness of breath (appears to have no SOB on visual exam), cough Systems Review Comment:: Difficult or unable to obtain as he is nonverbal. - Patient Data Vitals - most recent: Last Vital Signs Temp 98.4 F 07/24/16 11:29 Pulse 70 07/24/16 11:29 Resp 20 07/24/16 02:32 BP 112/79 07/24/16 11:29 Pulse Ox 91 L 07/24/16 11:29 Weight - most recent: 278 lb 6.4 oz I&O - last 24 hours: Intake & Output 07/23/16 07/24/16 07/24/16 22:59 06:59 14:59 Intake Total 350 0 360 Output Total 1075 250 Balance -725 -250 360 Lab Results last 24 hrs: Laboratory Results - last 24 hr 07/23/16 07/23/16 07/24/16 Range/Units 16:25 20:22 05:57 WBC 7.65 (4.23-9.07) K/mm3 RBC 4.49 L (4.63-6.08) M/mm3 Hgb 13.3 L (13.7-17.5) gm/L Hct 43.1 (40.1-51.0) % MCV 96.0 H (79.0-92.2) fl MCH 29.6 (25.7-32.2) pg MCHC 30.9 L (32.2-35.5) g/dl RDW Std Deviation 47.8 H (35.1-43.9) fL Plt Count 207 (163-337) K/mm3 MPV 10.4 (9.4-12.3) fl Neut % (Auto) 75.2 H (34.0-67.9) % Lymph % (Auto) 12.2 L (21.8-53.1) % [place] % (Auto) 10.8 (5.3-12.2) % Eos % (Auto) 1.3 (0.8-7.0) Baso % (Auto) 0.4 (0.1-1.2) % Neut # (Auto) 5.75 H (1.78-5.38) K/mm3 Lymph # (Auto) 0.93 L (1.32-3.57) K/mm3 [place] # (Auto) 0.83 H (0.30-0.82) K/mm3 Eos # (Auto) 0.10 (0.04-0.54) K/mm3 Baso # (Auto) 0.03 (0.01-0.08) K/mm3 Sodium (136-145) mEq/L Potassium (3.5-5.1) mEq/L Chloride (98-107) mEq/L Carbon Dioxide (21-32) mEq/L Anion Gap (5-15) BUN (7-18) mg/dL Creatinine (0.7-1.3) mg/dL Est Cr Clr Drug Dosing mL/min Estimated GFR (MDRD) (>60) mL/min BUN/Creatinine Ratio (14-18) Glucose (83-115) mg/dL POC Glucose 129 H 117 H (83-110) mg/dL Calcium (8.5-10.1) mg/dL Magnesium (1.8-2.4) mg/dl C-Reactive Protein (<1.0) mg/dL 07/24/16 07/24/16 07/24/16 Range/Units 05:57 06:21 11:23 WBC (4.23-9.07) K/mm3 RBC (4.63-6.08) M/mm3 Hgb (13.7-17.5) gm/L Hct (40.1-51.0) % MCV (79.0-92.2) fl MCH (25.7-32.2) pg MCHC (32.2-35.5) g/dl RDW Std Deviation (35.1-43.9) fL Plt Count (163-337) K/mm3 MPV (9.4-12.3) fl Neut % (Auto) (34.0-67.9) % Lymph % (Auto) (21.8-53.1) % [place] % (Auto) (5.3-12.2) % Eos % (Auto) (0.8-7.0) Baso % (Auto) (0.1-1.2) % Neut # (Auto) (1.78-5.38) K/mm3 Lymph # (Auto) (1.32-3.57) K/mm3 [place] # (Auto) (0.30-0.82) K/mm3 Eos # (Auto) (0.04-0.54) K/mm3 Baso # (Auto) (0.01-0.08) K/mm3 Sodium 149 H (136-145) mEq/L Potassium 3.2 L (3.5-5.1) mEq/L Chloride 109 H (98-107) mEq/L Carbon Dioxide 30 (21-32) mEq/L Anion Gap 13.2 (5-15) BUN 24 H (7-18) mg/dL Creatinine 1.0 (0.7-1.3) mg/dL Est Cr Clr Drug Dosing 50.35 mL/min Estimated GFR (MDRD) > 60 (>60) mL/min BUN/Creatinine Ratio 24.0 H (14-18) Glucose 112 (83-115) mg/dL POC Glucose 124 H 142 H (83-110) mg/dL Calcium 8.7 (8.5-10.1) mg/dL Magnesium 2.0 (1.8-2.4) mg/dl C-Reactive Protein 14.7 H* (<1.0) mg/dL Donis Results last 24 hrs: Microbiology 07/22/16 23:30 Aerobic Blood Culture - Preliminary Blood NO GROWTH AFTER 1 DAY Anaerobic Blood Culture - Preliminary Gram Negative Rods 07/23/16 16:30 Influenza Type A Antigen Screen - Final Nasal, Right Positive Influenza A Ag Influenza Type B Antigen Screen - Final Positive Influenza B Ag 07/22/16 23:18 Aerobic Blood Culture - Preliminary Blood Gram Negative Rods Anaerobic Blood Culture - Preliminary Gram Negative Rods Med Orders - Current: Current Medications Acetaminophen (Tylenol) 650 mg PO BID [facility] Last Admin: 07/24/16 08:50 Dose: 650 mg Hydrocodone Bitart/Acetaminophen (Haworth 325-5 Mg) 1 tab PO Q4H PRN PRN Reason: Pain (moderate 4-6) Albuterol/Ipratropium (Duoneb 3.0-0.5 Mg/3 Ml) 3 ml NEB Q4H PRN PRN Reason: Shortness Of Breath/wheezing Aspirin (Aspirin) 81 mg PO DAILY [facility] Last Admin: 07/24/16 08:50 Dose: 81 mg Bisacodyl (Dulcolax) 10 mg RECTAL DAILY PRN PRN Reason: Constipation Last Admin: 07/24/16 06:18 Dose: 10 mg Budesonide (Pulmicort) 0.5 mg NEB BIDRT [facility] Dextrose/Water (Dextrose 50% In Water) 50 ml IVPUSH ASDIRECTED PRN PRN Reason: Hypoglycemia Enoxaparin Sodium (Lovenox) 40 mg SUBCUT DAILY [facility] Last Admin: 07/24/16 08:52 Dose: 40 mg Furosemide (Lasix) 20 mg IVPUSH DAILY [facility] Last Admin: 07/24/16 08:52 Dose: 20 mg Piperacillin Sod/Tazobactam (Sod 4.5 gm/ Sodium Chloride) 100 mls @ 25 mls/hr IV Q8H [facility] Last Admin: 07/24/16 11:23 Dose: 25 mls/hr Insulin Aspart (Novolog) 2 unit SUBCUT ACDINNER [facility] Last Admin: 07/23/16 16:28 Dose: 2 units Insulin Aspart (Novolog) 0 unit SUBCUT QIDACANDBED [facility] PRN Reason: Protocol Last Admin: 07/24/16 11:24 Dose: Not Given Insulin Detemir (Levemir) 20 unit SUBCUT BID [facility] Last Admin: 07/24/16 08:53 Dose: 20 units Levalbuterol HCl (Xopenex) 1.25 mg NEB TID [facility] Olanzapine (Zyprexa) 15 mg PO BEDTIME [facility] Last Admin: 07/23/16 20:14 Dose: 15 mg Ondansetron HCl (Zofran Odt) 4 mg PO Q4H PRN PRN Reason: nausea, able to take PO Ondansetron HCl (Zofran) 4 mg IV Q4H PRN PRN Reason: Nausea/Vomiting Oseltamivir Phosphate (Tamiflu) 30 mg PO BID [facility] Camphor/Menthol 1 (Applic) 0 each TOP BID [facility] Last Admin: 07/24/16 08:54 Dose: Not Given Cranberry Extract [ (Cranberry] 405 Mg) 0 each PO BID [facility] Last Admin: 07/24/16 08:54 Dose: Not Given Ketoconazole 1 (Applic) 0 each TOP DAILY [facility] Last Admin: 07/24/16 08:54 Dose: Not Given Memantine 14 Mg 0 each PO DAILY [facility] Last Admin: 07/24/16 08:54 Dose: Not Given Polyethylene Glycol (Miralax) 17 gm PO DAILY [facility] Last Admin: 07/24/16 08:52 Dose: 17 gm Potassium Chloride (Klor-Con M20) 20 meq PO BID [facility] Saccharomyces Boulardii (Florastor) 250 mg PO BID [facility] Last Admin: 07/24/16 08:52 Dose: 250 mg Senna (Senna) 17.2 mg PO DAILY PRN PRN Reason: Constipation Senna/Docusate Sodium (Senna Plus) 2 tab PO BID PRN PRN Reason: CONSTIPATION Trospium (Sanctura) 20 mg PO BID [facility] Last Admin: 07/24/16 08:50 Dose: 20 mg Discontinued Medications Diphenhydramine HCl (Benadryl) 25 mg IVPUSH ONETIME ONE Stop: 07/22/16 23:55 Last Admin: 07/22/16 23:57 Dose: 25 mg Diphenhydramine HCl (Benadryl) Confirm Administered Dose 50 mg .ROUTE .STK-MED ONE Stop: 07/22/16 23:57 Last Admin: 07/22/16 23:57 Dose: Not Given Furosemide (Lasix) 40 mg IVPUSH NOW ONE Stop: 07/22/16 21:33 Last Admin: 07/22/16 21:47 Dose: 40 mg Furosemide (Lasix) 20 mg IVPUSH ONETIME ONE Stop: 07/23/16 01:40 Last Admin: 07/23/16 02:32 Dose: 20 mg Levofloxacin/Dextrose 750 mg/ (Premix) 150 mls @ 100 mls/hr IV Q24H [facility] Last Admin: 07/22/16 23:31 Dose: 100 mls/hr Ceftriaxone Sodium 2 gm/ (Sodium Chloride) 100 mls @ 200 mls/hr IV ONETIME ONE Stop: 07/23/16 00:39 Last Admin: 07/23/16 00:16 Dose: 200 mls/hr Ceftriaxone Sodium 1 gm/ (Sodium Chloride) 100 mls @ 200 mls/hr IV Q24H [facility] Last Admin: 07/23/16 12:29 Dose: Not Given Piperacillin Sod/Tazobactam (Sod 4.5 gm/ Sodium Chloride) 100 mls @ 200 mls/hr IV ONETIME ONE Stop: 07/23/16 12:29 Last Admin: 07/23/16 12:26 Dose: 200 mls/hr Oseltamivir Phosphate (Tamiflu) 30 mg PO BID [facility] Stop: 07/29/16 09:01 Potassium Chloride (Klor-Con M20) 20 meq PO DAILY [facility] Last Admin: 07/24/16 08:54 Dose: 20 meq Potassium Chloride (Potassium Chloride) 40 meq PO ONETIME ONE Stop: 07/24/16 09:44 Last Admin: 07/24/16 09:55 Dose: 40 meq Saccharomyces Boulardii (Florastor) 250 mg PO BID [facility] Last Admin: 07/24/16 10:51 Dose: Not Given - Exam Quality Assessment: supplemental oxygen, DVT prophylaxis General: no acute distress HEENT: Pupils equal, EOMI, Mucous membr. moist/pink Neck: supple Lungs: Normal respiratory effort, Decreased breath sounds (throughout; unable to follow commands for deep breathing), Rhonchi (to right mid to lower becerril) Cardiovascular: Regular Rate, Regular Rhythm, Other (distant heart tones) Abdomen: bowel sounds present, soft, no tenderness (no apparent tenderness to palpation). No: rebound, guarding, distension (Male) Exam: Other (suprapubic catheter, site is without drainage today, minimal redness, dressing in place is CDI. Draining straw colored urine- less sediment noted today) Extremities: edema (2+ to mid tibia/ankles/pedal bilat- teds bilat; improved from yesterday) Peripheral Pulses: 1+: dorsalis pedis (L), dorsalis pedis (R) Skin: warm, dry Neurological: other (difficult to assess as is nonverbal/noncommunicative) Psy/Mental Status: alert, other (difficult to assess; resting comfortably, no aparent distress) - Problem List & Annotations (1) Acute UTI SNOMED Code(s): 381911164 Code(s): N39.0 - URINARY TRACT INFECTION, SITE NOT SPECIFIED Status: Acute Priority: High Current Visit: Yes (2) Hematuria SNOMED Code(s): 35922964 Code(s): R31.9 - HEMATURIA, UNSPECIFIED Status: Acute Priority: High Current Visit: Yes (3) Alzheimer's dementia SNOMED Code(s): 63460326 Code(s): G30.9 - ALZHEIMER'S DISEASE, UNSPECIFIED Status: Chronic Priority: Medium Current Visit: No Qualifiers: Alzheimer's disease onset: unspecified onset Dementia behavioral disturbance: without behavioral disturbance Qualified Code(s): G30.9 - Alzheimer's disease, unspecified; F02.80 - Dementia in other diseases classified elsewhere without behavioral disturbance (4) Suprapubic catheter SNOMED Code(s): 018308473, 785365074 Code(s): Z93.59 - OTHER CYSTOSTOMY STATUS Status: Chronic Priority: Medium Current Visit: Yes (5) Obstructive uropathy SNOMED Code(s): 7830650 Code(s): N13.9 - OBSTRUCTIVE AND REFLUX UROPATHY, UNSPECIFIED Status: Chronic Priority: Medium Current Visit: Yes (6) Hypoxia SNOMED Code(s): 872668639, 576461581 Code(s): R09.02 - HYPOXEMIA Status: Acute Priority: High Current Visit : Yes (7) Peripheral edema SNOMED Code(s): 829744912 Code(s): R60.9 - EDEMA, UNSPECIFIED Status: Acute Priority: High Current Visit: Yes (8) Tachypnea SNOMED Code(s): 894119968 Code(s): R06.82 - TACHYPNEA, NOT ELSEWHERE CLASSIFIED Status: Acute Priority: High Current Visit: Yes (9) Influenza SNOMED Code(s): 8765423 Code(s): J11.1 - FLU DUE TO UNIDENTIFIED INFLUENZA VIRUS W OTH RESP MANIFEST Status: Acute Priority: High Current Visit: Yes Annotation/Comment:: A and B positive (10) Bacteremia SNOMED Code(s): 6001130 Code(s): R78.81 - BACTEREMIA Status: Acute Priority: High Current Visit : Yes Annotation/Comment:: GNR thus far; awaiting further ID and sensitivity - Problem List Review Problem List Initiated/Reviewed/Updated: Yes - My Orders Last 24 Hours: My Active Orders 07/23/16 16:00 Insulin Aspart [NovoLOG] 2 unit SUBCUT ACDINNER 07/23/16 17:00 Insulin Aspart [NovoLOG] See Protocol SUBCUT QIDACANDBED 07/23/16 21:00 OLANZapine [ZyPREXA] 15 mg PO BEDTIME Saccharomyces Boulardii [Florastor] 250 mg PO BID 07/24/16 10:14 OT Evaluation and Treatment [CONS] Routine PT Evaluation and Treatment [CONS] Routine 07/24/16 12:31 RT Aerosol Therapy [RC] ASDIRECTED 07/24/16 12:32 RT Aerosol Therapy [RC] ASDIRECTED 07/24/16 15:00 Levalbuterol HCl [Xopenex] 1.25 mg NEB TID 07/24/16 21:00 Budesonide [Pulmicort] 0.5 mg NEB BIDRT Oseltamivir [Tamiflu] 30 mg PO BID 07/25/16 05:00 BASIC METABOLIC PANEL,BMP [CHEM] DAILY C-REACTIVE PROTEIN [CHEM] DAILY CBC WITH AUTO DIFF [HEME] DAILY MAGNESIUM [CHEM] DAILY 07/25/16 09:00 Potassium Chloride [Klor-Con M20] 20 meq PO BID 07/26/16 05:00 BASIC METABOLIC PANEL,BMP [CHEM] DAILY C-REACTIVE PROTEIN [CHEM] DAILY CBC WITH AUTO DIFF [HEME] DAILY MAGNESIUM [CHEM] DAILY 07/27/16 05:00 BASIC METABOLIC PANEL,BMP [CHEM] DAILY C-REACTIVE PROTEIN [CHEM] DAILY CBC WITH AUTO DIFF [HEME] DAILY MAGNESIUM [CHEM] DAILY 07/28/16 05:00 BASIC METABOLIC PANEL,BMP [CHEM] DAILY C-REACTIVE PROTEIN [CHEM] DAILY CBC WITH AUTO DIFF [HEME] DAILY MAGNESIUM [CHEM] DAILY - Plan Plan:: AUTI with chronic suprapubic catheter due to obstructive uropathy/BPH Now also with Bacteremia- 3/4 BC bottles + for GNR -Rocephin given in ED, Per chart review in the past has been resistant; changed to zosyn yesterday. Now with bacteremia and minimal response thus far will add IV doxycycline to cover other atypicals pending sensitivity -Risk factors: suprapubic cath, bedbound status, end stage dementia, dysphagia- with likely poor PO intake -Nursing to do daily dressing change to cath site -UC with GNR- ecoli, pending sensitivity Tachypnea with hypoxia-- Influenza A and B + -Supplemental oxygen- improved, continue with supplemental oxygen PRN -CXR with mild atelectasis -Tamiflu BID x 5 days -Pulmicort neb BID -Xopenex neb TID -Patient unable to cooperate with IS/C&DB and acapella due to advanced dementia Peripheral edema-- improved today -Significant to bilateral lower extremities -Diuresed well with IV lasix thus far -BNP 97; echocardiogram results pending -Cont with lasix for now, may transition to PO lasix tomorrow -Monitor K+ and Mg- replace if needed DM- type 2 -AC & HS accuchecks - Cont home insulin -SSI during hospital stay -A1C - 5.8 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 This is a very poor prognosis for him overall; in combination he is unable to cooperate with RT tx for best optimal outcome (IS/acapella/C&DB) from respiratory standpoint due to advanced dementia. Risk for pneumonia is high. Will discuss with his PCP Dr. Espinoza today and update family. Patient is DNR but does wish DNI if needed.
[2016-07-24] MEDS: Levalbuterol HCl 1.25 MG/3 ML Neb NEB SCH ×2 (13:18→20:53)
[2016-07-24] MEDS ORDERED: Levalbuterol HCl 1.25 MG/3 ML Neb NEB SCH (15:00)
[2016-07-24] MEDS: Budesonide 0.5 MG/2 ML Neb Susp NEB SCH (20:53)
[2016-07-24] MEDS: Oseltamivir 30 MG Cap PO SCH (22:06)
[2016-07-24] MEDS: OLANZapine 5 MG Tab PO SCH (22:06)
[2016-07-24] MEDS: Sulfamethoxazole/Trimethoprim 800-160 MG Tab PO SCH (22:06)
[2016-07-25] MEDS: Piperacillin/Tazobactam 4.5 GM in Sodium Chloride 0.9% 100 ML IV SCH (05:41)
[2016-07-25] MEDS: Budesonide 0.5 MG/2 ML Neb Susp NEB SCH ×2 (05:56→20:21)
[2016-07-25] MEDS: Levalbuterol HCl 1.25 MG/3 ML Neb NEB SCH ×3 (05:56→20:21)
[2016-07-25] MEDS: Insulin Aspart 100 Units/ML 3 ML Pen SUBCUT SCH ×5 (06:32→22:12)
[2016-07-25] MEDS: Trospium 20 MG Tab PO SCH ×2 (08:38→22:21)
--- NOTE | 2016-07-25 08:38 | PCM.PN ---
<Flaquita Restrepo M - Last Filed: 07/25/16 13:06> - General Info Date of Service: 07/25/16 Admission Dx/Problem (Free Text): Admission Diagnosis/Problem Admission Diagnosis/Problem UTI, Urinary tract infectious disease Dominic is an 86yo male admitted through ER with AUTI- ecoli organism on UC. He is being treated with IV Zosyn, changed to Rocephin due to sensitivity. He has been febrile overnight. 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 He is resting comfortably in chair on my exam this morning, appears in no acute distress. Does not make eye contact or any sort of communication. VSS. Labs improved this morning. WBC improved, CRP down slightly. Functional Status: Reports: tolerating diet, urinating (suprapubic catheter, chronic). Denies: ambulating, new symptoms - Review of Systems General: Reports: No Symptoms Pulmonary: Denies: shortness of breath Systems Review Comment:: ROS: unable to obtain due to dementia and noncommunicative; appears in no pain. - Patient Data Vitals - most recent: Last Vital Signs Temp 97.9 F 07/25/16 08:35 Pulse 88 07/25/16 08:35 Resp 17 07/25/16 08:35 BP 119/68 07/25/16 08:35 Pulse Ox 92 L 07/25/16 08:35 Weight - most recent: 125.787 kg I&O - last 24 hours: Intake & Output 07/24/16 07/25/16 07/25/16 22:59 06:59 14:59 Intake Total 605 340 Output Total 600 450 Balance 5 -110 Lab Results last 24 hrs: Laboratory Results - last 24 hr 07/24/16 07/24/16 07/24/16 Range/Units 11:23 17:22 21:52 WBC (4.23-9.07) K/mm3 RBC (4.63-6.08) M/mm3 Hgb (13.7-17.5) gm/L Hct (40.1-51.0) % MCV (79.0-92.2) fl MCH (25.7-32.2) pg MCHC (32.2-35.5) g/dl RDW Std Deviation (35.1-43.9) fL Plt Count (163-337) K/mm3 MPV (9.4-12.3) fl Neut % (Auto) (34.0-67.9) % Lymph % (Auto) (21.8-53.1) % [place] % (Auto) (5.3-12.2) % Eos % (Auto) (0.8-7.0) Baso % (Auto) (0.1-1.2) % Neut # (Auto) (1.78-5.38) K/mm3 Lymph # (Auto) (1.32-3.57) K/mm3 [place] # (Auto) (0.30-0.82) K/mm3 Eos # (Auto) (0.04-0.54) K/mm3 Baso # (Auto) (0.01-0.08) K/mm3 Manual Slide Review Sodium (136-145) mEq/L Potassium (3.5-5.1) mEq/L Chloride (98-107) mEq/L Carbon Dioxide (21-32) mEq/L Anion Gap (5-15) BUN (7-18) mg/dL Creatinine (0.7-1.3) mg/dL Est Cr Clr Drug Dosing mL/min Estimated GFR (MDRD) (>60) mL/min BUN/Creatinine Ratio (14-18) Glucose (83-115) mg/dL POC Glucose 142 H 147 H 196 H (83-110) mg/dL Calcium (8.5-10.1) mg/dL Magnesium (1.8-2.4) mg/dl C-Reactive Protein (<1.0) mg/dL 07/25/16 07/25/16 07/25/16 Range/Units 06:18 06:21 06:21 WBC 6.75 (4.23-9.07) K/mm3 RBC 4.82 (4.63-6.08) M/mm3 Hgb 14.3 (13.7-17.5) gm/L Hct 46.0 (40.1-51.0) % MCV 95.4 H (79.0-92.2) fl MCH 29.7 (25.7-32.2) pg MCHC 31.1 L (32.2-35.5) g/dl RDW Std Deviation 47.8 H (35.1-43.9) fL Plt Count 205 (163-337) K/mm3 MPV 10.2 (9.4-12.3) fl Neut % (Auto) 54.5 (34.0-67.9) % Lymph % (Auto) 24.9 (21.8-53.1) % [place] % (Auto) 15.4 H (5.3-12.2) % Eos % (Auto) 4.4 (0.8-7.0) Baso % (Auto) 0.4 (0.1-1.2) % Neut # (Auto) 3.67 (1.78-5.38) K/mm3 Lymph # (Auto) 1.68 (1.32-3.57) K/mm3 [place] # (Auto) 1.04 H (0.30-0.82) K/mm3 Eos # (Auto) 0.30 (0.04-0.54) K/mm3 Baso # (Auto) 0.03 (0.01-0.08) K/mm3 Manual Slide Review Normal smear Sodium 148 H (136-145) mEq/L Potassium 3.2 L (3.5-5.1) mEq/L Chloride 109 H (98-107) mEq/L Carbon Dioxide 32 (21-32) mEq/L Anion Gap 10.2 (5-15) BUN 29 H (7-18) mg/dL Creatinine 1.0 (0.7-1.3) mg/dL Est Cr Clr Drug Dosing 50.35 mL/min Estimated GFR (MDRD) > 60 (>60) mL/min BUN/Creatinine Ratio 29.0 H (14-18) Glucose 110 (83-115) mg/dL POC Glucose 115 H (83-110) mg/dL Calcium 8.6 (8.5-10.1) mg/dL Magnesium 2.1 (1.8-2.4) mg/dl C-Reactive Protein 11.6 H* (<1.0) mg/dL Donis Results last 24 hrs: Microbiology 07/22/16 23:30 Aerobic Blood Culture - Preliminary Blood NO GROWTH AFTER 2 DAYS Anaerobic Blood Culture - Preliminary Escherichia Coli 07/22/16 23:18 Aerobic Blood Culture - Final Blood Escherichia Coli Anaerobic Blood Culture - Preliminary Escherichia Coli Med Orders - Current: Current Medications Acetaminophen (Tylenol) 650 mg PO BID [facility] Last Admin: 07/24/16 22:07 Dose: 650 mg Hydrocodone Bitart/Acetaminophen ([place] 325-5 Mg) 1 tab PO Q4H PRN PRN Reason: Pain (moderate 4-6) Albuterol/Ipratropium (Duoneb 3.0-0.5 Mg/3 Ml) 3 ml NEB Q4H PRN PRN Reason: Shortness Of Breath/wheezing Aspirin (Aspirin) 81 mg PO DAILY [facility] Last Admin: 07/24/16 08:50 Dose: 81 mg Bisacodyl (Dulcolax) 10 mg RECTAL DAILY PRN PRN Reason: Constipation Last Admin: 07/24/16 06:18 Dose: 10 mg Budesonide (Pulmicort) 0.5 mg NEB BIDRT [facility] Last Admin: 07/25/16 05:56 Dose: 0.5 mg Dextrose/Water (Dextrose 50% In Water) 50 ml IVPUSH ASDIRECTED PRN PRN Reason: Hypoglycemia Enoxaparin Sodium (Lovenox) 40 mg SUBCUT DAILY [facility] Last Admin: 07/24/16 08:52 Dose: 40 mg Furosemide (Lasix) 40 mg PO DAILY [facility] Piperacillin Sod/Tazobactam (Sod 4.5 gm/ Sodium Chloride) 100 mls @ 25 mls/hr IV Q8H [facility] Last Admin: 07/25/16 05:41 Dose: 25 mls/hr Insulin Aspart (Novolog) 2 unit SUBCUT ACDINNER [facility] Last Admin: 07/24/16 17:39 Dose: 2 units Insulin Aspart (Novolog) 0 unit SUBCUT QIDACANDBED [facility] PRN Reason: Protocol Last Admin: 07/25/16 06:32 Dose: Not Given Insulin Detemir (Levemir) 20 unit SUBCUT BID [facility] Last Admin: 07/24/16 22:08 Dose: 20 units Levalbuterol HCl (Xopenex) 1.25 mg NEB TIDRT [facility] Last Admin: 07/25/16 05:56 Dose: 1.25 mg Olanzapine (Zyprexa) 15 mg PO BEDTIME [facility] Last Admin: 07/24/16 22:06 Dose: 15 mg Ondansetron HCl (Zofran Odt) 4 mg PO Q4H PRN PRN Reason: nausea, able to take PO Ondansetron HCl (Zofran) 4 mg IV Q4H PRN PRN Reason: Nausea/Vomiting Oseltamivir Phosphate (Tamiflu) 30 mg PO BID [facility] Last Admin: 07/24/16 22:06 Dose: 30 mg Camphor/Menthol 1 (Applic) 0 each TOP BID [facility] Last Admin: 07/24/16 22:09 Dose: Not Given Cranberry Extract [ (Cranberry] 405 Mg) 0 each PO BID [facility] Last Admin: 07/24/16 22:09 Dose: Not Given Ketoconazole 1 (Applic) 0 each TOP DAILY [facility] Last Admin: 07/24/16 08:54 Dose: Not Given Memantine 14 Mg 0 each PO DAILY [facility] Last Admin: 07/24/16 08:54 Dose: Not Given Polyethylene Glycol (Miralax) 17 gm PO DAILY [facility] Last Admin: 07/24/16 08:52 Dose: 17 gm Potassium Chloride (Klor-Con M20) 40 meq PO BID [facility] Saccharomyces Boulardii (Florastor) 250 mg PO BID [facility] Last Admin: 07/24/16 22:06 Dose: 250 mg Senna (Senna) 17.2 mg PO DAILY PRN PRN Reason: Constipation Senna/Docusate Sodium (Senna Plus) 2 tab PO BID PRN PRN Reason: CONSTIPATION Trimethoprim/Sulfamethoxazole (Septra Ds) 1 tab PO BID [facility] Last Admin: 07/24/16 22:06 Dose: 1 tab Trospium (Sanctura) 20 mg PO BID [facility] Last Admin: 07/24/16 22:06 Dose: 20 mg Discontinued Medications Diphenhydramine HCl (Benadryl) 25 mg IVPUSH ONETIME ONE Stop: 07/22/16 23:55 Last Admin: 07/22/16 23:57 Dose: 25 mg Diphenhydramine HCl (Benadryl) Confirm Administered Dose 50 mg .ROUTE .STK-MED ONE Stop: 07/22/16 23:57 Last Admin: 07/22/16 23:57 Dose: Not Given Furosemide (Lasix) 40 mg IVPUSH NOW ONE Stop: 07/22/16 21:33 Last Admin: 07/22/16 21:47 Dose: 40 mg Furosemide (Lasix) 20 mg IVPUSH ONETIME ONE Stop: 07/23/16 01:40 Last Admin: 07/23/16 02:32 Dose: 20 mg Furosemide (Lasix) 20 mg IVPUSH DAILY [facility] Last Admin: 07/24/16 08:52 Dose: 20 mg Levofloxacin/Dextrose 750 mg/ (Premix) 150 mls @ 100 mls/hr IV Q24H [facility] Last Admin: 07/22/16 23:31 Dose: 100 mls/hr Ceftriaxone Sodium 2 gm/ (Sodium Chloride) 100 mls @ 200 mls/hr IV ONETIME ONE Stop: 07/23/16 00:39 Last Admin: 07/23/16 00:16 Dose: 200 mls/hr Ceftriaxone Sodium 1 gm/ (Sodium Chloride) 100 mls @ 200 mls/hr IV Q24H [facility] Last Admin: 07/23/16 12:29 Dose: Not Given Piperacillin Sod/Tazobactam (Sod 4.5 gm/ Sodium Chloride) 100 mls @ 200 mls/hr IV ONETIME ONE Stop: 07/23/16 12:29 Last Admin: 07/23/16 12:26 Dose: 200 mls/hr Levalbuterol HCl (Xopenex) 1.25 mg NEB TID [facility] Oseltamivir Phosphate (Tamiflu) 30 mg PO BID [facility] Stop: 07/29/16 09:01 Last Admin: 07/24/16 12:35 Dose: Not Given Potassium Chloride (Klor-Con M20) 20 meq PO DAILY [facility] Last Admin: 07/24/16 08:54 Dose: 20 meq Potassium Chloride (Potassium Chloride) 40 meq PO ONETIME ONE Stop: 07/24/16 09:44 Last Admin: 07/24/16 09:55 Dose: 40 meq Potassium Chloride (Klor-Con M20) 20 meq PO BID [facility] Saccharomyces Boulardii (Florastor) 250 mg PO BID [facility] Last Admin: 07/24/16 10:51 Dose: Not Given - Exam Quality Assessment: DVT prophylaxis General: alert, no acute distress HEENT: Pupils equal, Pupils reactive, EOMI Lungs: Clear to auscultation, Normal respiratory effort, Decreased breath sounds (mid to lower lobes; does not take deep breaths when asked ) Cardiovascular: Regular Rate, Regular Rhythm, Other (distant heart tones) Abdomen: bowel sounds present, soft, no tenderness, no distension, other (round) (Male) Exam: Deferred, Other (suprapubic cath site with dressing CDI, minimal redness to site) Extremities: edema (1-2+ edema to mid shins to pedal areas bilat. Teds bilat) Peripheral Pulses: 1+: dorsalis pedis (L), dorsalis pedis (R) Skin: warm, dry - Problem List & Annotations (1) Acute UTI SNOMED Code(s): 581282378 Code(s): N39.0 - URINARY TRACT INFECTION, SITE NOT SPECIFIED Status: Acute Priority: High Current Visit: Yes (2) Hematuria SNOMED Code(s): 48649271 Code(s): R31.9 - HEMATURIA, UNSPECIFIED Status: Acute Priority: High Current Visit: Yes (3) Alzheimer's dementia SNOMED Code(s): 65937440 Code(s): G30.9 - ALZHEIMER'S DISEASE, UNSPECIFIED Status: Chronic Priority: Medium Current Visit: No Qualifiers: Alzheimer's disease onset: unspecified onset Dementia behavioral disturbance: without behavioral disturbance Qualified Code(s): G30.9 - Alzheimer's disease, unspecified; F02.80 - Dementia in other diseases classified elsewhere without behavioral disturbance (4) Suprapubic catheter SNOMED Code(s): 920978576, 211059004 Code(s): Z93.59 - OTHER CYSTOSTOMY STATUS Status: Chronic Priority: Medium Current Visit: Yes (5) Obstructive uropathy SNOMED Code(s): 5344962 Code(s): N13.9 - OBSTRUCTIVE AND REFLUX UROPATHY, UNSPECIFIED Status: Chronic Priority: Medium Current Visit: Yes (6) Hypoxia SNOMED Code(s): 714482289, 667445324 Code(s): R09.02 - HYPOXEMIA Status: Acute Priority: High Current Visit : Yes (7) Peripheral edema SNOMED Code(s): 394986897 Code(s): R60.9 - EDEMA, UNSPECIFIED Status: Acute Priority: High Current Visit: Yes (8) Tachypnea SNOMED Code(s): 428310924 Code(s): R06.82 - TACHYPNEA, NOT ELSEWHERE CLASSIFIED Status: Acute Priority: High Current Visit: Yes (9) Influenza SNOMED Code(s): 6478654 Code(s): J11.1 - FLU DUE TO UNIDENTIFIED INFLUENZA VIRUS W OTH RESP MANIFEST Status: Acute Priority: High Current Visit: Yes Annotation/Comment:: A and B positive (10) Bacteremia SNOMED Code(s): 6077648 Code(s): R78.81 - BACTEREMIA Status: Acute Priority: High Current Visit : Yes Annotation/Comment:: GNR thus far; awaiting further ID and sensitivity - Problem List Review Problem List Initiated/Reviewed/Updated: Yes - My Orders Last 24 Hours: My Active Orders 07/24/16 10:14 OT Evaluation and Treatment [CONS] Routine PT Evaluation and Treatment [CONS] Routine 07/24/16 14:00 Levalbuterol HCl [Xopenex] 1.25 mg NEB TIDRT 07/24/16 21:00 Budesonide [Pulmicort] 0.5 mg NEB BIDRT Oseltamivir [Tamiflu] 30 mg PO BID 07/25/16 06:59 Blood Culture x2 Reflex Set [OM.PC] Stat 07/25/16 07:41 CULTURE BLOOD [BC] Stat 07/25/16 07:59 CULTURE BLOOD [BC] Stat 07/25/16 09:00 Furosemide [Lasix] 40 mg PO DAILY Potassium Chloride [Klor-Con M20] 40 meq PO BID 07/26/16 05:00 BASIC METABOLIC PANEL,BMP [CHEM] DAILY C-REACTIVE PROTEIN [CHEM] DAILY CBC WITH AUTO DIFF [HEME] DAILY MAGNESIUM [CHEM] DAILY 07/27/16 05:00 BASIC METABOLIC PANEL,BMP [CHEM] DAILY C-REACTIVE PROTEIN [CHEM] DAILY CBC WITH AUTO DIFF [HEME] DAILY MAGNESIUM [CHEM] DAILY 07/28/16 05:00 BASIC METABOLIC PANEL,BMP [CHEM] DAILY C-REACTIVE PROTEIN [CHEM] DAILY CBC WITH AUTO DIFF [HEME] DAILY MAGNESIUM [CHEM] DAILY - Plan Plan:: AUTI with chronic suprapubic catheter due to obstructive uropathy/BPH Now also with Bacteremia- 3/4 BC bottles + for GNR -Rocephin IV per sensitivity -Florastor -Risk factors: suprapubic cath, bedbound status, end stage dementia, dysphagia- with likely poor PO intake -Nursing to do daily dressing change to cath site -UC with GNR- ecoli Tachypnea with hypoxia-- Influenza A and B + : tachypnea resolved, hypoxia improving with less supplemental oxygen requirements -Supplemental oxygen- improved, continue with supplemental oxygen PRN -CXR with mild atelectasis -Tamiflu BID x 5 days -Pulmicort neb BID -Xopenex neb TID -Patient unable to cooperate with IS/C&DB and acapella due to advanced dementia Peripheral edema-- improved -Significant to bilateral lower extremities -Diuresed well with IV lasix thus far-- transition to PO lasix now -BNP 97; echocardiogram results pending -Monitor K+ and Mg- replace if needed DM- type 2 -AC & HS accuchecks - Cont home insulin -SSI during hospital stay -A1C - 5.8 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 This is a very poor prognosis for him overall; in combination he is unable to cooperate with RT tx for best optimal outcome (IS/acapella/C&DB) from respiratory standpoint due to advanced dementia. Risk for pneumonia is high. Will discuss with his PCP Dr. Espinoza today and update family. Patient is DNR but does wish DNI if needed. <Nyla Arenas - Last Filed: 07/25/16 17:19> - Patient Data Vitals - most recent: Last Vital Signs Temp 36.9 C 07/25/16 15:11 Pulse 62 07/25/16 15:11 Resp 17 07/25/16 15:11 BP 129/71 07/25/16 15:11 Pulse Ox 92 L 07/25/16 15:11 I&O - last 24 hours: Intake & Output 07/25/16 07/25/16 07/25/16 06:59 14:59 22:59 Intake Total 340 360 580 Output Total 450 275 Balance -110 360 305 Lab Results last 24 hrs: Laboratory Results - last 24 hr 07/24/16 07/24/16 07/25/16 Range/Units 17:22 21:52 06:18 WBC (4.23-9.07) K/mm3 RBC (4.63-6.08) M/mm3 Hgb (13.7-17.5) gm/L Hct (40.1-51.0) % MCV (79.0-92.2) fl MCH (25.7-32.2) pg MCHC (32.2-35.5) g/dl RDW Std Deviation (35.1-43.9) fL Plt Count (163-337) K/mm3 MPV (9.4-12.3) fl Neut % (Auto) (34.0-67.9) % Lymph % (Auto) (21.8-53.1) % [place] % (Auto) (5.3-12.2) % Eos % (Auto) (0.8-7.0) Baso % (Auto) (0.1-1.2) % Neut # (Auto) (1.78-5.38) K/mm3 Lymph # (Auto) (1.32-3.57) K/mm3 [place] # (Auto) (0.30-0.82) K/mm3 Eos # (Auto) (0.04-0.54) K/mm3 Baso # (Auto) (0.01-0.08) K/mm3 Manual Slide Review Sodium (136-145) mEq/L Potassium (3.5-5.1) mEq/L Chloride (98-107) mEq/L Carbon Dioxide (21-32) mEq/L Anion Gap (5-15) BUN (7-18) mg/dL Creatinine (0.7-1.3) mg/dL Est Cr Clr Drug Dosing mL/min Estimated GFR (MDRD) (>60) mL/min BUN/Creatinine Ratio (14-18) Glucose (83-115) mg/dL POC Glucose 147 H 196 H 115 H (83-110) mg/dL Calcium (8.5-10.1) mg/dL Magnesium (1.8-2.4) mg/dl C-Reactive Protein (<1.0) mg/dL 07/25/16 07/25/16 07/25/16 Range/Units 06:21 06:21 11:39 WBC 6.75 (4.23-9.07) K/mm3 RBC 4.82 (4.63-6.08) M/mm3 Hgb 14.3 (13.7-17.5) gm/L Hct 46.0 (40.1-51.0) % MCV 95.4 H (79.0-92.2) fl MCH 29.7 (25.7-32.2) pg MCHC 31.1 L (32.2-35.5) g/dl RDW Std Deviation 47.8 H (35.1-43.9) fL Plt Count 205 (163-337) K/mm3 MPV 10.2 (9.4-12.3) fl Neut % (Auto) 54.5 (34.0-67.9) % Lymph % (Auto) 24.9 (21.8-53.1) % [place] % (Auto) 15.4 H (5.3-12.2) % Eos % (Auto) 4.4 (0.8-7.0) Baso % (Auto) 0.4 (0.1-1.2) % Neut # (Auto) 3.67 (1.78-5.38) K/mm3 Lymph # (Auto) 1.68 (1.32-3.57) K/mm3 [place] # (Auto) 1.04 H (0.30-0.82) K/mm3 Eos # (Auto) 0.30 (0.04-0.54) K/mm3 Baso # (Auto) 0.03 (0.01-0.08) K/mm3 Manual Slide Review Normal smear Sodium 148 H (136-145) mEq/L Potassium 3.2 L (3.5-5.1) mEq/L Chloride 109 H (98-107) mEq/L Carbon Dioxide 32 (21-32) mEq/L Anion Gap 10.2 (5-15) BUN 29 H (7-18) mg/dL Creatinine 1.0 (0.7-1.3) mg/dL Est Cr Clr Drug Dosing 50.35 mL/min Estimated GFR (MDRD) > 60 (>60) mL/min BUN/Creatinine Ratio 29.0 H (14-18) Glucose 110 (83-115) mg/dL POC Glucose 207 H (83-110) mg/dL Calcium 8.6 (8.5-10.1) mg/dL Magnesium 2.1 (1.8-2.4) mg/dl C-Reactive Protein 11.6 H* (<1.0) mg/dL 07/25/16 Range/Units 17:10 WBC (4.23-9.07) K/mm3 RBC (4.63-6.08) M/mm3 Hgb (13.7-17.5) gm/L Hct (40.1-51.0) % MCV (79.0-92.2) fl MCH (25.7-32.2) pg MCHC (32.2-35.5) g/dl RDW Std Deviation (35.1-43.9) fL Plt Count (163-337) K/mm3 MPV (9.4-12.3) fl Neut % (Auto) (34.0-67.9) % Lymph % (Auto) (21.8-53.1) % [place] % (Auto) (5.3-12.2) % Eos % (Auto) (0.8-7.0) Baso % (Auto) (0.1-1.2) % Neut # (Auto) (1.78-5.38) K/mm3 Lymph # (Auto) (1.32-3.57) K/mm3 [place] # (Auto) (0.30-0.82) K/mm3 Eos # (Auto) (0.04-0.54) K/mm3 Baso # (Auto) (0.01-0.08) K/mm3 Manual Slide Review Sodium (136-145) mEq/L Potassium (3.5-5.1) mEq/L Chloride (98-107) mEq/L Carbon Dioxide (21-32) mEq/L Anion Gap (5-15) BUN (7-18) mg/dL Creatinine (0.7-1.3) mg/dL Est Cr Clr Drug Dosing mL/min Estimated GFR (MDRD) (>60) mL/min BUN/Creatinine Ratio (14-18) Glucose (83-115) mg/dL POC Glucose 85 (83-110) mg/dL Calcium (8.5-10.1) mg/dL Magnesium (1.8-2.4) mg/dl C-Reactive Protein (<1.0) mg/dL O[facility] Results last 24 hrs: Microbiology 07/22/16 23:30 Aerobic Blood Culture - Preliminary Blood NO GROWTH AFTER 2 DAYS Anaerobic Blood Culture - Preliminary Escherichia Coli 07/22/16 23:18 Aerobic Blood Culture - Final Blood Escherichia Coli Anaerobic Blood Culture - Preliminary Escherichia Coli Med Orders - Current: Current Medications Acetaminophen (Tylenol) 650 mg PO BID [facility] Last Admin: 07/25/16 08:40 Dose: 650 mg Hydrocodone Bitart/Acetaminophen ([place] 325-5 Mg) 1 tab PO Q4H PRN PRN Reason: Pain (moderate 4-6) Albuterol/Ipratropium (Duoneb 3.0-0.5 Mg/3 Ml) 3 ml NEB Q4H PRN PRN Reason: Shortness Of Breath/wheezing Aspirin (Aspirin) 81 mg PO DAILY [facility] Last Admin: 07/25/16 08:40 Dose: 81 mg Bisacodyl (Dulcolax) 10 mg RECTAL DAILY PRN PRN Reason: Constipation Last Admin: 07/24/16 06:18 Dose: 10 mg Budesonide (Pulmicort) 0.5 mg NEB BIDRT [facility] Last Admin: 07/25/16 05:56 Dose: 0.5 mg Dextrose/Water (Dextrose 50% In Water) 50 ml IVPUSH ASDIRECTED PRN PRN Reason: Hypoglycemia Enoxaparin Sodium (Lovenox) 40 mg SUBCUT DAILY [facility] Last Admin: 07/25/16 08:39 Dose: 40 mg Furosemide (Lasix) 40 mg PO DAILY [facility] Last Admin: 07/25/16 08:40 Dose: 40 mg Ceftriaxone Sodium 1 gm/ (Sodium Chloride) 100 mls @ 200 mls/hr IV Q24H [facility] Last Admin: 07/25/16 11:39 Dose: 200 mls/hr Insulin Aspart (Novolog) 2 unit SUBCUT ACDINNER [facility] Last Admin: 07/25/16 17:11 Dose: Not Given Insulin Aspart (Novolog) 0 unit SUBCUT QIDACANDBED [facility] PRN Reason: Protocol Last Admin: 07/25/16 17:11 Dose: Not Given Insulin Detemir (Levemir) 20 unit SUBCUT BID [facility] Last Admin: 07/25/16 08:42 Dose: 20 units Levalbuterol HCl (Xopenex) 1.25 mg NEB TIDRT [facility] Last Admin: 07/25/16 13:47 Dose: 1.25 mg Magnesium Hydroxide (Milk Of Magnesia) 30 ml PO Q6H PRN PRN Reason: Constipation Last Admin: 07/25/16 17:12 Dose: 30 ml Olanzapine (Zyprexa) 15 mg PO BEDTIME [facility] Last Admin: 07/24/16 22:06 Dose: 15 mg Ondansetron HCl (Zofran Odt) 4 mg PO Q4H PRN PRN Reason: nausea, able to take PO Ondansetron HCl (Zofran) 4 mg IV Q4H PRN PRN Reason: Nausea/Vomiting Oseltamivir Phosphate (Tamiflu) 30 mg PO BID [facility] Stop: 07/29/16 21:01 Last Admin: 07/25/16 08:40 Dose: 30 mg Camphor/Menthol 1 (Applic) 0 each TOP BID [facility] Last Admin: 07/25/16 08:39 Dose: Not Given Cranberry Extract [ (Cranberry] 405 Mg) 0 each PO BID [facility] Last Admin: 07/25/16 08:39 Dose: Not Given Ketoconazole 1 (Applic) 0 each TOP DAILY [facility] Last Admin: 07/25/16 08:39 Dose: Not Given Memantine 14 Mg 0 each PO DAILY [facility] Last Admin: 07/25/16 08:39 Dose: Not Given Polyethylene Glycol (Miralax) 17 gm PO DAILY [facility] Last Admin: 07/25/16 08:39 Dose: 17 gm Potassium Chloride (Klor-Con M20) 40 meq PO BID [facility] Last Admin: 07/25/16 08:47 Dose: 40 meq Saccharomyces Boulardii (Florastor) 250 mg PO BID [facility] Last Admin: 07/25/16 08:40 Dose: 250 mg Senna (Senna) 17.2 mg PO DAILY PRN PRN Reason: Constipation Last Admin: 07/25/16 17:12 Dose: 17.2 mg Senna/Docusate Sodium (Senna Plus) 2 tab PO BID PRN PRN Reason: CONSTIPATION Last Admin: 07/25/16 08:40 Dose: 2 tab Trospium (Sanctura) 20 mg PO BID [facility] Last Admin: 07/25/16 08:38 Dose: 20 mg Discontinued Medications Diphenhydramine HCl (Benadryl) 25 mg IVPUSH ONETIME ONE Stop: 07/22/16 23:55 Last Admin: 07/22/16 23:57 Dose: 25 mg Diphenhydramine HCl (Benadryl) Confirm Administered Dose 50 mg .ROUTE .STK-MED ONE Stop: 07/22/16 23:57 Last Admin: 07/22/16 23:57 Dose: Not Given Furosemide (Lasix) 40 mg IVPUSH NOW ONE Stop: 07/22/16 21:33 Last Admin: 07/22/16 21:47 Dose: 40 mg Furosemide (Lasix) 20 mg IVPUSH ONETIME ONE Stop: 07/23/16 01:40 Last Admin: 07/23/16 02:32 Dose: 20 mg Furosemide (Lasix) 20 mg IVPUSH DAILY [facility] Last Admin: 07/24/16 08:52 Dose: 20 mg Levofloxacin/Dextrose 750 mg/ (Premix) 150 mls @ 100 mls/hr IV Q24H [facility] Last Admin: 07/22/16 23:31 Dose: 100 mls/hr Ceftriaxone Sodium 2 gm/ (Sodium Chloride) 100 mls @ 200 mls/hr IV ONETIME ONE Stop: 07/23/16 00:39 Last Admin: 07/23/16 00:16 Dose: 200 mls/hr Ceftriaxone Sodium 1 gm/ (Sodium Chloride) 100 mls @ 200 mls/hr IV Q24H [facility] Last Admin: 07/23/16 12:29 Dose: Not Given Piperacillin Sod/Tazobactam (Sod 4.5 gm/ Sodium Chloride) 100 mls @ 200 mls/hr IV ONETIME ONE Stop: 07/23/16 12:29 Last Admin: 07/23/16 12:26 Dose: 200 mls/hr Piperacillin Sod/Tazobactam (Sod 4.5 gm/ Sodium Chloride) 100 mls @ 25 mls/hr IV Q8H [facility] Last Admin: 07/25/16 05:41 Dose: 25 mls/hr Levalbuterol HCl (Xopenex) 1.25 mg NEB TID [facility] Oseltamivir Phosphate (Tamiflu) 30 mg PO BID [facility] Stop: 07/29/16 09:01 Last Admin: 07/24/16 12:35 Dose: Not Given Potassium Chloride (Klor-Con M20) 20 meq PO DAILY [facility] Last Admin: 07/24/16 08:54 Dose: 20 meq Potassium Chloride (Potassium Chloride) 40 meq PO ONETIME ONE Stop: 07/24/16 09:44 Last Admin: 07/24/16 09:55 Dose: 40 meq Potassium Chloride (Klor-Con M20) 20 meq PO BID [facility] Saccharomyces Boulardii (Florastor) 250 mg PO BID [facility] Last Admin: 07/24/16 10:51 Dose: Not Given Trimethoprim/Sulfamethoxazole (Septra Ds) 1 tab PO BID [facility] Last Admin: 07/25/16 08:40 Dose: 1 tab - My Orders Last 24 Hours: My Active Orders 07/25/16 16:30 Magnesium Hydroxide [Milk of Magnesia] 30 ml PO Q6H PRN 07/25/16 [facility]inner [employer] Dysphagia Diet [DIET] 07/28/16 07:00 CBC W/O DIFF,HEMOGRAM [HEME] MOTH@0707/31/16 07:00 CBC W/O DIFF,HEMOGRAM [HEME] MOTH@69908/04/16 07:00 CBC W/O DIFF,HEMOGRAM [HEME] MOTH@69908/07/16 07:00 CBC W/O DIFF,HEMOGRAM [HEME] MOTH@69908/11/16 07:00 CBC W/O DIFF,HEMOGRAM [HEME] MOTH@699 - Plan Plan:: LOS>96 hours, will require negative blood cultures
[2016-07-25] MEDS: CRANBERRY EXTRACT 405 MG PO SCH ×2 (08:39→21:59)
[2016-07-25] MEDS: Enoxaparin 40 MG/0.4 ML Syringe SUBCUT SCH (08:39)
[2016-07-25] MEDS: MENTHOL TOP SCH ×2 (08:39→22:00)
[2016-07-25] MEDS: KETOCONAZOLE TOP SCH (08:39)
[2016-07-25] MEDS: Polyethylene Glycol 3350 Powder 17 GM Packet PO SCH (08:39)
[2016-07-25] MEDS: MEMANTINE 14 MG PO SCH (08:39)
[2016-07-25] MEDS: CAMPHOR TOP SCH ×2 (08:39→22:00)
[2016-07-25] MEDS: Acetaminophen 325 MG Tab PO SCH ×2 (08:40→21:56)
[2016-07-25] MEDS: Sulfamethoxazole/Trimethoprim 800-160 MG Tab PO SCH (08:40)
[2016-07-25] MEDS: Saccharomyces Boulardii (Probiotic) 250 MG Cap PO SCH ×2 (08:40→21:55)
[2016-07-25] MEDS: Oseltamivir 30 MG Cap PO SCH ×2 (08:40→21:58)
[2016-07-25] MEDS: Furosemide 40 MG Tab PO SCH (08:40)
[2016-07-25] MEDS: Aspirin 81 MG Tab.Chew PO SCH (08:40)
[2016-07-25] MEDS: Insulin Detemir 100 Units/ML 3 ML Pen SUBCUT SCH ×2 (08:42→22:10)
[2016-07-25] MEDS: Potassium Chloride 20 MEQ Tab.ER PO SCH ×2 (08:47→22:00)
[2016-07-25] MEDS ORDERED: Potassium Chloride 20 MEQ Tab.ER PO SCH (09:00)
[2016-07-25] MEDS: cefTRIAXone 1 GM in Sodium Chloride 0.9% 100 ML IV SCH (11:39)
[2016-07-25] MEDS ORDERED: Magnesium Hydroxide 400 MG/5 ML Susp 30 ML Cup PO PRN (16:30)
[2016-07-25] MEDS: OLANZapine 5 MG Tab PO SCH (21:58)
[2016-07-26] MEDS: Budesonide 0.5 MG/2 ML Neb Susp NEB SCH ×2 (06:14→20:34)
[2016-07-26] MEDS: Levalbuterol HCl 1.25 MG/3 ML Neb NEB SCH ×3 (06:14→20:34)
[2016-07-26] MEDS: Insulin Aspart 100 Units/ML 3 ML Pen SUBCUT SCH ×5 (07:52→23:35)
[2016-07-26] MEDS: Potassium Chloride 20 MEQ Tab.ER PO SCH ×2 (09:49→23:02)
[2016-07-26] MEDS: Polyethylene Glycol 3350 Powder 17 GM Packet PO SCH (09:49)
[2016-07-26] MEDS: Aspirin 81 MG Tab.Chew PO SCH (09:49)
[2016-07-26] MEDS: Saccharomyces Boulardii (Probiotic) 250 MG Cap PO SCH ×2 (09:49→23:01)
[2016-07-26] MEDS: Acetaminophen 325 MG Tab PO SCH ×2 (09:49→23:01)
[2016-07-26] MEDS: Furosemide 40 MG Tab PO SCH (09:50)
[2016-07-26] MEDS: Oseltamivir 30 MG Cap PO SCH ×2 (09:50→23:01)
[2016-07-26] MEDS: cefTRIAXone 1 GM in Sodium Chloride 0.9% 100 ML IV SCH (09:50)
[2016-07-26] MEDS: KETOCONAZOLE TOP SCH (09:50)
[2016-07-26] MEDS: MEMANTINE 14 MG PO SCH (09:50)
[2016-07-26] MEDS: CAMPHOR TOP SCH ×2 (09:51→23:02)
[2016-07-26] MEDS: MENTHOL TOP SCH ×2 (09:51→23:02)
[2016-07-26] MEDS: CRANBERRY EXTRACT 405 MG PO SCH ×2 (09:51→23:02)
[2016-07-26] MEDS: Enoxaparin 40 MG/0.4 ML Syringe SUBCUT SCH (09:51)
[2016-07-26] MEDS: Trospium 20 MG Tab PO SCH ×2 (10:04→23:35)
--- NOTE | 2016-07-26 11:16 | PCM.PN ---
- General Info Date of Service: 07/26/16 Functional Status: Reports: tolerating diet (npo), urinating - Review of Systems General: Reports: No Symptoms HEENT: Reports: no symptoms Pulmonary: Reports: no symptoms Cardiovascular: Reports: No Symptoms Gastrointestinal: Reports: No symptoms Genitourinary: Reports: no symptoms Musculoskeletal: Reports: no symptoms Skin: Reports: no symptoms Neurological: Reports: No Symptoms Psychiatric: Reports: no symptoms - Patient Data Vitals - most recent: Last Vital Signs Temp 36.4 C 07/26/16 09:11 Pulse 74 07/26/16 09:11 Resp 18 07/26/16 09:11 BP 136/70 07/26/16 09:11 Pulse Ox 92 L 07/26/16 09:11 Weight - most recent: 126.099 kg I&O - last 24 hours: Intake & Output 07/25/16 07/26/16 07/26/16 22:59 06:59 14:59 Intake Total 580 20 480 Output Total 275 550 Balance 305 -530 480 Lab Results last 24 hrs: Laboratory Results - last 24 hr 07/25/16 07/25/16 07/25/16 Range/Units 11:39 17:10 21:54 WBC (4.23-9.07) K/mm3 RBC (4.63-6.08) M/mm3 Hgb (13.7-17.5) gm/L Hct (40.1-51.0) % MCV (79.0-92.2) fl MCH (25.7-32.2) pg MCHC (32.2-35.5) g/dl RDW Std Deviation (35.1-43.9) fL Plt Count (163-337) K/mm3 MPV (9.4-12.3) fl Neut % (Auto) (34.0-67.9) % Lymph % (Auto) (21.8-53.1) % [place] % (Auto) (5.3-12.2) % Eos % (Auto) (0.8-7.0) Baso % (Auto) (0.1-1.2) % Neut # (Auto) (1.78-5.38) K/mm3 Lymph # (Auto) (1.32-3.57) K/mm3 [place] # (Auto) (0.30-0.82) K/mm3 Eos # (Auto) (0.04-0.54) K/mm3 Baso # (Auto) (0.01-0.08) K/mm3 Sodium (136-145) mEq/L Potassium (3.5-5.1) mEq/L Chloride (98-107) mEq/L Carbon Dioxide (21-32) mEq/L Anion Gap (5-15) BUN (7-18) mg/dL Creatinine (0.7-1.3) mg/dL Est Cr Clr Drug Dosing mL/min Estimated GFR (MDRD) (>60) mL/min BUN/Creatinine Ratio (14-18) Glucose (83-115) mg/dL POC Glucose 207 H 85 173 H (83-110) mg/dL Calcium (8.5-10.1) mg/dL Magnesium (1.8-2.4) mg/dl C-Reactive Protein (<1.0) mg/dL 07/26/16 07/26/16 07/26/16 Range/Units 05:13 05:13 06:11 WBC 7.14 (4.23-9.07) K/mm3 RBC 4.61 L (4.63-6.08) M/mm3 Hgb 13.6 L (13.7-17.5) gm/L Hct 44.6 (40.1-51.0) % MCV 96.7 H (79.0-92.2) fl MCH 29.5 (25.7-32.2) pg MCHC 30.5 L (32.2-35.5) g/dl RDW Std Deviation 48.8 H (35.1-43.9) fL Plt Count 224 (163-337) K/mm3 MPV 10.5 (9.4-12.3) fl Neut % (Auto) 53.7 (34.0-67.9) % Lymph % (Auto) 24.5 (21.8-53.1) % [place] % (Auto) 12.5 H (5.3-12.2) % Eos % (Auto) 8.3 H (0.8-7.0) Baso % (Auto) 0.4 (0.1-1.2) % Neut # (Auto) 3.84 (1.78-5.38) K/mm3 Lymph # (Auto) 1.75 (1.32-3.57) K/mm3 [place] # (Auto) 0.89 H (0.30-0.82) K/mm3 Eos # (Auto) 0.59 H (0.04-0.54) K/mm3 Baso # (Auto) 0.03 (0.01-0.08) K/mm3 Sodium 149 H (136-145) mEq/L Potassium 3.6 (3.5-5.1) mEq/L Chloride 110 H (98-107) mEq/L Carbon Dioxide 33 H (21-32) mEq/L Anion Gap 9.6 (5-15) BUN 26 H (7-18) mg/dL Creatinine 1.1 (0.7-1.3) mg/dL Est Cr Clr Drug Dosing 45.77 mL/min Estimated GFR (MDRD) > 60 (>60) mL/min BUN/Creatinine Ratio 23.6 H (14-18) Glucose 70 L (83-115) mg/dL POC Glucose 90 (83-110) mg/dL Calcium 8.4 L (8.5-10.1) mg/dL Magnesium 2.2 (1.8-2.4) mg/dl C-Reactive Protein 6.5 H* (<1.0) mg/dL Donis Results last 24 hrs: Microbiology 07/25/16 07:59 Aerobic Blood Culture - Preliminary Blood - Venous - Lab Draw NO GROWTH AFTER 1 DAY Anaerobic Blood Culture - Preliminary NO GROWTH AFTER 1 DAY 07/25/16 07:41 Aerobic Blood Culture - Preliminary Blood - Venous NO GROWTH AFTER 1 DAY Anaerobic Blood Culture - Preliminary NO GROWTH AFTER 1 DAY 07/22/16 23:30 Aerobic Blood Culture - Preliminary Blood NO GROWTH AFTER 3 DAYS Anaerobic Blood Culture - Preliminary Escherichia Coli 07/22/16 23:18 Aerobic Blood Culture - Final Blood Escherichia Coli Anaerobic Blood Culture - Preliminary Escherichia Coli Med Orders - Current: Current Medications Acetaminophen (Tylenol) 650 mg PO BID [facility] Last Admin: 07/26/16 09:49 Dose: 650 mg Hydrocodone Bitart/Acetaminophen ([place] 325-5 Mg) 1 tab PO Q4H PRN PRN Reason: Pain (moderate 4-6) Albuterol/Ipratropium (Duoneb 3.0-0.5 Mg/3 Ml) 3 ml NEB Q4H PRN PRN Reason: Shortness Of Breath/wheezing Aspirin (Aspirin) 81 mg PO DAILY [facility] Last Admin: 07/26/16 09:49 Dose: 81 mg Bisacodyl (Dulcolax) 10 mg RECTAL DAILY PRN PRN Reason: Constipation Last Admin: 07/24/16 06:18 Dose: 10 mg Budesonide (Pulmicort) 0.5 mg NEB BIDRT [facility] Last Admin: 07/26/16 06:14 Dose: 0.5 mg Dextrose/Water (Dextrose 50% In Water) 50 ml IVPUSH ASDIRECTED PRN PRN Reason: Hypoglycemia Enoxaparin Sodium (Lovenox) 40 mg SUBCUT DAILY [facility] Last Admin: 07/26/16 09:51 Dose: 40 mg Furosemide (Lasix) 40 mg PO DAILY [facility] Last Admin: 07/26/16 09:50 Dose: 40 mg Ceftriaxone Sodium 1 gm/ (Sodium Chloride) 100 mls @ 200 mls/hr IV Q24H [facility] Last Admin: 07/26/16 09:50 Dose: 200 mls/hr Insulin Aspart (Novolog) 2 unit SUBCUT ACDINNER [facility] Last Admin: 07/25/16 17:11 Dose: Not Given Insulin Aspart (Novolog) 0 unit SUBCUT QIDACANDBED [facility] PRN Reason: Protocol Last Admin: 07/26/16 07:52 Dose: Not Given Insulin Detemir (Levemir) 20 unit SUBCUT BID [facility] Last Admin: 07/25/16 22:10 Dose: 20 units Levalbuterol HCl (Xopenex) 1.25 mg NEB TIDRT [facility] Last Admin: 07/26/16 06:14 Dose: 1.25 mg Magnesium Hydroxide (Milk Of Magnesia) 30 ml PO Q6H PRN PRN Reason: Constipation Last Admin: 07/25/16 17:12 Dose: 30 ml Olanzapine (Zyprexa) 15 mg PO BEDTIME [facility] Last Admin: 07/25/16 21:58 Dose: 15 mg Ondansetron HCl (Zofran Odt) 4 mg PO Q4H PRN PRN Reason: nausea, able to take PO Ondansetron HCl (Zofran) 4 mg IV Q4H PRN PRN Reason: Nausea/Vomiting Oseltamivir Phosphate (Tamiflu) 30 mg PO BID [facility] Stop: 07/29/16 21:01 Last Admin: 07/26/16 09:50 Dose: 30 mg Camphor/Menthol 1 (Applic) 0 each TOP BID [facility] Last Admin: 07/26/16 09:51 Dose: Not Given Cranberry Extract [ (Cranberry] 405 Mg) 0 each PO BID [facility] Last Admin: 07/26/16 09:51 Dose: Not Given Ketoconazole 1 (Applic) 0 each TOP DAILY [facility] Last Admin: 07/26/16 09:50 Dose: Not Given Memantine 14 Mg 0 each PO DAILY [facility] Last Admin: 07/26/16 09:50 Dose: Not Given Polyethylene Glycol (Miralax) 17 gm PO DAILY [facility] Last Admin: 07/26/16 09:49 Dose: 17 gm Potassium Chloride (Klor-Con M20) 40 meq PO BID [facility] Last Admin: 07/26/16 09:49 Dose: 40 meq Saccharomyces Boulardii (Florastor) 250 mg PO BID [facility] Last Admin: 07/26/16 09:49 Dose: 250 mg Senna (Senna) 17.2 mg PO DAILY PRN PRN Reason: Constipation Last Admin: 07/25/16 17:12 Dose: 17.2 mg Senna/Docusate Sodium (Senna Plus) 2 tab PO BID PRN PRN Reason: CONSTIPATION Last Admin: 07/25/16 08:40 Dose: 2 tab Trospium (Sanctura) 20 mg PO BID [facility] Last Admin: 07/26/16 10:04 Dose: Not Given Discontinued Medications Diphenhydramine HCl (Benadryl) 25 mg IVPUSH ONETIME ONE Stop: 07/22/16 23:55 Last Admin: 07/22/16 23:57 Dose: 25 mg Diphenhydramine HCl (Benadryl) Confirm Administered Dose 50 mg .ROUTE .STK-MED ONE Stop: 07/22/16 23:57 Last Admin: 07/22/16 23:57 Dose: Not Given Furosemide (Lasix) 40 mg IVPUSH NOW ONE Stop: 07/22/16 21:33 Last Admin: 07/22/16 21:47 Dose: 40 mg Furosemide (Lasix) 20 mg IVPUSH ONETIME ONE Stop: 07/23/16 01:40 Last Admin: 07/23/16 02:32 Dose: 20 mg Furosemide (Lasix) 20 mg IVPUSH DAILY [facility] Last Admin: 07/24/16 08:52 Dose: 20 mg Levofloxacin/Dextrose 750 mg/ (Premix) 150 mls @ 100 mls/hr IV Q24H [facility] Last Admin: 07/22/16 23:31 Dose: 100 mls/hr Ceftriaxone Sodium 2 gm/ (Sodium Chloride) 100 mls @ 200 mls/hr IV ONETIME ONE Stop: 07/23/16 00:39 Last Admin: 07/23/16 00:16 Dose: 200 mls/hr Ceftriaxone Sodium 1 gm/ (Sodium Chloride) 100 mls @ 200 mls/hr IV Q24H [facility] Last Admin: 07/23/16 12:29 Dose: Not Given Piperacillin Sod/Tazobactam (Sod 4.5 gm/ Sodium Chloride) 100 mls @ 200 mls/hr IV ONETIME ONE Stop: 07/23/16 12:29 Last Admin: 07/23/16 12:26 Dose: 200 mls/hr Piperacillin Sod/Tazobactam (Sod 4.5 gm/ Sodium Chloride) 100 mls @ 25 mls/hr IV Q8H [facility] Last Admin: 07/25/16 05:41 Dose: 25 mls/hr Levalbuterol HCl (Xopenex) 1.25 mg NEB TID [facility] Oseltamivir Phosphate (Tamiflu) 30 mg PO BID [facility] Stop: 07/29/16 09:01 Last Admin: 07/24/16 12:35 Dose: Not Given Potassium Chloride (Klor-Con M20) 20 meq PO DAILY [facility] Last Admin: 07/24/16 08:54 Dose: 20 meq Potassium Chloride (Potassium Chloride) 40 meq PO ONETIME ONE Stop: 07/24/16 09:44 Last Admin: 07/24/16 09:55 Dose: 40 meq Potassium Chloride (Klor-Con M20) 20 meq PO BID [facility] Saccharomyces Boulardii (Florastor) 250 mg PO BID [facility] Last Admin: 07/24/16 10:51 Dose: Not Given Trimethoprim/Sulfamethoxazole (Septra Ds) 1 tab PO BID [facility] Last Admin: 07/25/16 08:40 Dose: 1 tab - Exam Quality Assessment: urine catheter, DVT prophylaxis General: alert, oriented, no acute distress HEENT: Pupils equal, Pupils reactive, EOMI Neck: supple, trachea midline, no JVD Lungs: Normal respiratory effort Cardiovascular: Regular Rate Abdomen: bowel sounds present, soft, no tenderness, no distension (Male) Exam: Deferred Back Exam: normal inspection Extremities: normal pulses Skin: warm Neurological: no new focal deficit Psy/Mental Status: alert - Problem List Review Problem List Initiated/Reviewed/Updated: Yes - My Orders Last 24 Hours: My Active Orders 07/25/16 16:30 Magnesium Hydroxide [Milk of Magnesia] 30 ml PO Q6H PRN 07/25/16 [employer] Dysphagia Diet [DIET] 07/28/16 07:00 CBC W/O DIFF,HEMOGRAM [HEME] MOTH@0700 07/31/16 07:00 CBC W/O DIFF,HEMOGRAM [HEME] MOTH@0700 08/04/16 07:00 CBC W/O DIFF,HEMOGRAM [HEME] MOTH@0700 08/07/16 07:00 CBC W/O DIFF,HEMOGRAM [HEME] MOTH@0700 08/11/16 07:00 CBC W/O DIFF,HEMOGRAM [HEME] MOTH@0700 - Plan Plan:: Impression/Plan: AUTI with indwelling cath, supra-pubic with bacteremia, 3/4 bottles GNR Influenza A/B positive after prophylactic Tamiflu Chronic peripheral edema, change to lasix po on 07/25/16. DM, Hgb A1C, 5.8 on SS coverage Alzheimer dementia, dysphagia, SETTER OFF following also on IVF DVI prophylaxis DNR without DNI LOS>96 hours, will require negative blood cultures
[2016-07-26] MEDS: Insulin Detemir 100 Units/ML 3 ML Pen SUBCUT SCH ×2 (12:03→23:35)
[2016-07-26] MEDS: OLANZapine 5 MG Tab PO SCH (23:01)
[2016-07-27] MEDS: Levalbuterol HCl 1.25 MG/3 ML Neb NEB SCH ×3 (06:21→21:31)
[2016-07-27] MEDS: Budesonide 0.5 MG/2 ML Neb Susp NEB SCH ×2 (06:21→21:31)
[2016-07-27] MEDS: Insulin Aspart 100 Units/ML 3 ML Pen SUBCUT SCH ×5 (07:02→23:11)
[2016-07-27] MEDS: Potassium Chloride 20 MEQ Tab.ER PO SCH ×2 (09:39→23:04)
[2016-07-27] MEDS: Furosemide 40 MG Tab PO SCH (09:39)
[2016-07-27] MEDS: Acetaminophen 325 MG Tab PO SCH ×2 (09:39→22:59)
[2016-07-27] MEDS: Saccharomyces Boulardii (Probiotic) 250 MG Cap PO SCH ×2 (09:39→22:58)
[2016-07-27] MEDS: Aspirin 81 MG Tab.Chew PO SCH (09:39)
[2016-07-27] MEDS: Trospium 20 MG Tab PO SCH ×2 (09:39→22:58)
[2016-07-27] MEDS: Insulin Detemir 100 Units/ML 3 ML Pen SUBCUT SCH ×2 (09:40→23:38)
[2016-07-27] MEDS: Oseltamivir 30 MG Cap PO SCH ×2 (09:40→22:59)
[2016-07-27] MEDS: Polyethylene Glycol 3350 Powder 17 GM Packet PO SCH (09:40)
[2016-07-27] MEDS: Enoxaparin 40 MG/0.4 ML Syringe SUBCUT SCH (09:40)
[2016-07-27] MEDS: cefTRIAXone 1 GM in Sodium Chloride 0.9% 100 ML IV SCH (09:41)
[2016-07-27] MEDS: KETOCONAZOLE TOP SCH (09:59)
[2016-07-27] MEDS: CAMPHOR TOP SCH ×2 (09:59→23:04)
[2016-07-27] MEDS: MENTHOL TOP SCH ×2 (09:59→23:04)
[2016-07-27] MEDS: CRANBERRY EXTRACT 405 MG PO SCH ×2 (09:59→22:58)
[2016-07-27] MEDS: MEMANTINE 14 MG PO SCH (09:59)
--- NOTE | 2016-07-27 17:32 | PCM.PN ---
- General Info Date of Service: 07/27/16 Subjective Update: Patient is nonverbal. His noted to be in acute distress. Review of systems cannot be completed as patient is not responding to questions. He does appear to be grunting occasionally. Keeps his eyes closed. - Patient Data Vitals - most recent: Last Vital Signs Temp 36.3 C 07/27/16 15:52 Pulse 56 L 07/27/16 15:52 Resp 22 H 07/27/16 15:52 BP 120/77 07/27/16 15:52 Pulse Ox 96 07/27/16 15:52 Weight - most recent: 125.827 kg I&O - last 24 hours: Intake & Output 07/27/16 07/27/16 07/27/16 06:59 14:59 22:59 Intake Total 680 105 620 Output Total 650 925 Balance 30 105 -305 Lab Results last 24 hrs: Laboratory Results - last 24 hr 07/26/16 07/26/16 07/27/16 Range/Units 17:50 23:06 05:40 WBC 7.87 (4.23-9.07) K/mm3 RBC 4.43 L (4.63-6.08) M/mm3 Hgb 13.4 L (13.7-17.5) gm/L Hct 43.0 (40.1-51.0) % MCV 97.1 H (79.0-92.2) fl MCH 30.2 (25.7-32.2) pg MCHC 31.2 L (32.2-35.5) g/dl RDW Std Deviation 48.4 H (35.1-43.9) fL Plt Count 220 (163-337) K/mm3 MPV 10.2 (9.4-12.3) fl Neut % (Auto) 58.1 (34.0-67.9) % Lymph % (Auto) 22.7 (21.8-53.1) % [place] % (Auto) 10.3 (5.3-12.2) % Eos % (Auto) 7.9 H (0.8-7.0) Baso % (Auto) 0.6 (0.1-1.2) % Neut # (Auto) 4.57 (1.78-5.38) K/mm3 Lymph # (Auto) 1.79 (1.32-3.57) K/mm3 [place] # (Auto) 0.81 (0.30-0.82) K/mm3 Eos # (Auto) 0.62 H (0.04-0.54) K/mm3 Baso # (Auto) 0.05 (0.01-0.08) K/mm3 Sodium (136-145) mEq/L Potassium (3.5-5.1) mEq/L Chloride (98-107) mEq/L Carbon Dioxide (21-32) mEq/L Anion Gap (5-15) BUN (7-18) mg/dL Creatinine (0.7-1.3) mg/dL Est Cr Clr Drug Dosing mL/min Estimated GFR (MDRD) (>60) mL/min BUN/Creatinine Ratio (14-18) Glucose (83-115) mg/dL POC Glucose 159 H 128 H (83-110) mg/dL Calcium (8.5-10.1) mg/dL Magnesium (1.8-2.4) mg/dl C-Reactive Protein (<1.0) mg/dL 07/27/16 07/27/16 07/27/16 Range/Units 05:40 06:49 13:17 WBC (4.23-9.07) K/mm3 RBC (4.63-6.08) M/mm3 Hgb (13.7-17.5) gm/L Hct (40.1-51.0) % MCV (79.0-92.2) fl MCH (25.7-32.2) pg MCHC (32.2-35.5) g/dl RDW Std Deviation (35.1-43.9) fL Plt Count (163-337) K/mm3 MPV (9.4-12.3) fl Neut % (Auto) (34.0-67.9) % Lymph % (Auto) (21.8-53.1) % [place] % (Auto) (5.3-12.2) % Eos % (Auto) (0.8-7.0) Baso % (Auto) (0.1-1.2) % Neut # (Auto) (1.78-5.38) K/mm3 Lymph # (Auto) (1.32-3.57) K/mm3 [place] # (Auto) (0.30-0.82) K/mm3 Eos # (Auto) (0.04-0.54) K/mm3 Baso # (Auto) (0.01-0.08) K/mm3 Sodium 148 H (136-145) mEq/L Potassium 4.0 (3.5-5.1) mEq/L Chloride 111 H (98-107) mEq/L Carbon Dioxide 30 (21-32) mEq/L Anion Gap 11.0 (5-15) BUN 22 H (7-18) mg/dL Creatinine 1.0 (0.7-1.3) mg/dL Est Cr Clr Drug Dosing 50.35 mL/min Estimated GFR (MDRD) > 60 (>60) mL/min BUN/Creatinine Ratio 22.0 H (14-18) Glucose 96 (83-115) mg/dL POC Glucose 112 H 134 H (83-110) mg/dL Calcium 8.8 (8.5-10.1) mg/dL Magnesium 2.2 (1.8-2.4) mg/dl C-Reactive Protein 4.7 H* (<1.0) mg/dL Donis Results last 24 hrs: Microbiology 07/25/16 07:59 Aerobic Blood Culture - Preliminary Blood - Venous - Lab Draw NO GROWTH AFTER 2 DAYS Anaerobic Blood Culture - Preliminary NO GROWTH AFTER 2 DAYS 07/25/16 07:41 Aerobic Blood Culture - Preliminary Blood - Venous NO GROWTH AFTER 2 DAYS Anaerobic Blood Culture - Preliminary NO GROWTH AFTER 2 DAYS 07/22/16 23:30 Aerobic Blood Culture - Preliminary Blood NO GROWTH AFTER 4 DAYS Anaerobic Blood Culture - Final Escherichia Coli 07/22/16 23:18 Aerobic Blood Culture - Final Blood Escherichia Coli Anaerobic Blood Culture - Final Escherichia Coli Med Orders - Current: Current Medications Acetaminophen (Tylenol) 650 mg PO BID [facility] Last Admin: 07/27/16 09:39 Dose: 650 mg Hydrocodone Bitart/Acetaminophen ([place] 325-5 Mg) 1 tab PO Q4H PRN PRN Reason: Pain (moderate 4-6) Albuterol/Ipratropium (Duoneb 3.0-0.5 Mg/3 Ml) 3 ml NEB Q4H PRN PRN Reason: Shortness Of Breath/wheezing Aspirin (Aspirin) 81 mg PO DAILY [facility] Last Admin: 07/27/16 09:39 Dose: 81 mg Bisacodyl (Dulcolax) 10 mg RECTAL DAILY PRN PRN Reason: Constipation Last Admin: 07/24/16 06:18 Dose: 10 mg Budesonide (Pulmicort) 0.5 mg NEB BIDRT [facility] Last Admin: 07/27/16 06:21 Dose: 0.5 mg Dextrose/Water (Dextrose 50% In Water) 50 ml IVPUSH ASDIRECTED PRN PRN Reason: Hypoglycemia Enoxaparin Sodium (Lovenox) 40 mg SUBCUT DAILY [facility] Last Admin: 07/27/16 09:40 Dose: 40 mg Furosemide (Lasix) 40 mg PO DAILY [facility] Last Admin: 07/27/16 09:39 Dose: 40 mg Ceftriaxone Sodium 1 gm/ (Sodium Chloride) 100 mls @ 200 mls/hr IV Q24H [facility] Last Admin: 07/27/16 09:41 Dose: 200 mls/hr Insulin Aspart (Novolog) 2 unit SUBCUT ACDINNER ON [facility] Last Admin: 07/26/16 17:52 Dose: 2 units Insulin Aspart (Novolog) 0 unit SUBCUT QIDACANDBED [facility] PRN Reason: Protocol Last Admin: 07/27/16 13:49 Dose: Not Given Insulin Detemir (Levemir) 20 unit SUBCUT BID [facility] Last Admin: 07/27/16 09:40 Dose: 20 units Levalbuterol HCl (Xopenex) 1.25 mg NEB TIDRT [facility] Last Admin: 07/27/16 13:30 Dose: 1.25 mg Magnesium Hydroxide (Milk Of Magnesia) 30 ml PO Q6H PRN PRN Reason: Constipation Last Admin: 07/25/16 17:12 Dose: 30 ml Olanzapine (Zyprexa) 15 mg PO BEDTIME [facility] Last Admin: 07/26/16 23:01 Dose: 15 mg Ondansetron HCl (Zofran Odt) 4 mg PO Q4H PRN PRN Reason: nausea, able to take PO Ondansetron HCl (Zofran) 4 mg IV Q4H PRN PRN Reason: Nausea/Vomiting Oseltamivir Phosphate (Tamiflu) 30 mg PO BID [facility] Stop: 07/29/16 21:01 Last Admin: 07/27/16 09:40 Dose: 30 mg Camphor/Menthol 1 (Applic) 0 each TOP BID [facility] Last Admin: 07/27/16 09:59 Dose: Not Given Cranberry Extract [ (Cranberry] 405 Mg) 0 each PO BID [facility] Last Admin: 07/27/16 09:59 Dose: Not Given Ketoconazole 1 (Applic) 0 each TOP DAILY [facility] Last Admin: 07/27/16 09:59 Dose: Not Given Memantine 14 Mg 0 each PO DAILY [facility] Last Admin: 07/27/16 09:59 Dose: Not Given Polyethylene Glycol (Miralax) 17 gm PO DAILY [facility] Last Admin: 07/27/16 09:40 Dose: 17 gm Potassium Chloride (Klor-Con M20) 40 meq PO BID [facility] Last Admin: 07/27/16 09:39 Dose: 40 meq Saccharomyces Boulardii (Florastor) 250 mg PO BID [facility] Last Admin: 07/27/16 09:39 Dose: 250 mg Senna (Senna) 17.2 mg PO DAILY PRN PRN Reason: Constipation Last Admin: 07/25/16 17:12 Dose: 17.2 mg Senna/Docusate Sodium (Senna Plus) 2 tab PO BID PRN PRN Reason: CONSTIPATION Last Admin: 07/25/16 08:40 Dose: 2 tab Trospium (Sanctura) 20 mg PO BID [facility] Last Admin: 07/27/16 09:39 Dose: 20 mg Discontinued Medications Diphenhydramine HCl (Benadryl) 25 mg IVPUSH ONETIME ONE Stop: 07/22/16 23:55 Last Admin: 07/22/16 23:57 Dose: 25 mg Diphenhydramine HCl (Benadryl) Confirm Administered Dose 50 mg .ROUTE .STK-MED ONE Stop: 07/22/16 23:57 Last Admin: 07/22/16 23:57 Dose: Not Given Furosemide (Lasix) 40 mg IVPUSH NOW ONE Stop: 07/22/16 21:33 Last Admin: 07/22/16 21:47 Dose: 40 mg Furosemide (Lasix) 20 mg IVPUSH ONETIME ONE Stop: 07/23/16 01:40 Last Admin: 07/23/16 02:32 Dose: 20 mg Furosemide (Lasix) 20 mg IVPUSH DAILY [facility] Last Admin: 07/24/16 08:52 Dose: 20 mg Levofloxacin/Dextrose 750 mg/ (Premix) 150 mls @ 100 mls/hr IV Q24H [facility] Last Admin: 07/22/16 23:31 Dose: 100 mls/hr Ceftriaxone Sodium 2 gm/ (Sodium Chloride) 100 mls @ 200 mls/hr IV ONETIME ONE Stop: 07/23/16 00:39 Last Admin: 07/23/16 00:16 Dose: 200 mls/hr Ceftriaxone Sodium 1 gm/ (Sodium Chloride) 100 mls @ 200 mls/hr IV Q24H [facility] Last Admin: 07/23/16 12:29 Dose: Not Given Piperacillin Sod/Tazobactam (Sod 4.5 gm/ Sodium Chloride) 100 mls @ 200 mls/hr IV ONETIME ONE Stop: 07/23/16 12:29 Last Admin: 07/23/16 12:26 Dose: 200 mls/hr Piperacillin Sod/Tazobactam (Sod 4.5 gm/ Sodium Chloride) 100 mls @ 25 mls/hr IV Q8H [facility] Last Admin: 07/25/16 05:41 Dose: 25 mls/hr Levalbuterol HCl (Xopenex) 1.25 mg NEB TID ON [facility] Oseltamivir Phosphate (Tamiflu) 30 mg PO BID [facility] Stop: 07/29/16 09:01 Last Admin: 07/24/16 12:35 Dose: Not Given Potassium Chloride (Klor-Con M20) 20 meq PO DAILY [facility] Last Admin: 07/24/16 08:54 Dose: 20 meq Potassium Chloride (Potassium Chloride) 40 meq PO ONETIME ONE Stop: 07/24/16 09:44 Last Admin: 07/24/16 09:55 Dose: 40 meq Potassium Chloride (Klor-Con M20) 20 meq PO BID [facility] Saccharomyces Boulardii (Florastor) 250 mg PO BID ON [facility] Last Admin: 07/24/16 10:51 Dose: Not Given Trimethoprim/Sulfamethoxazole (Septra Ds) 1 tab PO BID [facility] Last Admin: 07/25/16 08:40 Dose: 1 tab - Exam Physical Findings Comments:: Vitals: as above General: alert and oriented. NAD Psych: calm and cooperative HEENT: normocephalic, atraumatic. EOMI Cardiac: Normal S1, S2. regular rate. No murmurs rubs, or gallops. No JVD noted. 2+ pitting edema upto shins Lungs: Poor respiratory effort during physical exam, as patient is not following instructions. No obvious wheezing auscultated possible Rales bilaterally. Abd: Soft, NT/ND. No HSM noted. Skin: no new visible rashes or purpura noted Neuro: CN grossly intact. Strength intact and adequate bilaterally. Patient is not opening his eyes, but does drink occasionally. He is not responding verbally. - Problem List & Annotations (1) Bacteremia SNOMED Code(s): 7610837 Code(s): R78.81 - BACTEREMIA Status: Acute Priority: High Current Visit : Yes Annotation/Comment:: GNR thus far; awaiting further ID and sensitivity (2) Acute UTI SNOMED Code(s): 880023736 Code(s): N39.0 - URINARY TRACT INFECTION, SITE NOT SPECIFIED Status: Acute Priority: High Current Visit: Yes (3) Hypoxia SNOMED Code(s): 943185888, 311815468 Code(s): R09.02 - HYPOXEMIA Status: Acute Priority: High Current Visit : Yes (4) Influenza SNOMED Code(s): 1412494 Code(s): J11.1 - FLU DUE TO UNIDENTIFIED INFLUENZA VIRUS W OTH RESP MANIFEST Status: Acute Priority: High Current Visit: Yes Annotation/Comment:: A and B positive - Problem List Review Problem List Initiated/Reviewed/Updated: Yes - Plan Plan:: UTI with indwelling supra-pubic catheter with bacteremia, 3/4 bottles E coli, susceptible to ceftriaxone. Plan for goal coverage for 14 days. Repeat blood cultures with > 48 hours no growth. Influenza A/B positive after prophylactic Tamiflu Chronic peripheral edema, change to lasix po on 07/25/16. Hypernatremia - likely due to poor oral intake; give D5 in water 1/2 L. recheck CMP in am. Chronic medical conditions: DM, Hgb A1C, 5.8 on SS coverage Alzheimer dementia, dysphagia, SEED TESTER following. avoid isotonic maintainance fluids as there is concern for fluid overload Plan to place in SNF tomorrow with continued antibiotics
[2016-07-27] MEDS ORDERED: Dextrose 5% in Water 500 ML IV SCH (18:00)
[2016-07-27] MEDS: OLANZapine 5 MG Tab PO SCH (22:56)
[2016-07-28] MEDS: Levalbuterol HCl 1.25 MG/3 ML Neb NEB SCH (06:07)
[2016-07-28] MEDS: Budesonide 0.5 MG/2 ML Neb Susp NEB SCH (06:07)
[2016-07-28] MEDS: Insulin Aspart 100 Units/ML 3 ML Pen SUBCUT SCH ×2 (08:39→11:46)
--- NOTE | 2016-07-28 09:19 | PCM.DCSUM1 ---
Discharge Summary - Hospital Course Free Text/Narrative:: Mr Dumont is an 86yo male resident of [facility], PMH significant for alzheimers dementia, DM insulin dependent, BPH, obstructive uropathy, chronic suprapubic catheter, recurrent UTI, dysphagia (level 3 diet at [place]), hx of anemia , COPD, HLD, hx of skin cancer, brought in for fever, generalized weakness- worsening, cough. There has been a flu epidemic at the [place] where he resides, he has been on prophylactic tamiflu x 8 days. He came into ED hypoxic and tachypnic. He has 3+ edema to LE, rec'd IV lasix in the ED along with Rocephin IV to initiate tx for UTI. ER evaluation reveals AUTI with hematuria, hospitalist service is consulted for admission. Patient was admitted to medical surgical floor started on Zosyn for catheter associated UTI (chronic suprapubic catheter) x 2 days, levaquin x 1 day pending C&S. Ecoli with musa sensitivity in UC; BC were also positive 3/4 bottles for ecoli with musa sensitivity. He was switched to Rocephin x 4 days. Repeat Blood cultures were negative. He was swabbed for influenza, found to have both A and B positive and was started on Tamiflu BID x 5 days. CXR was clear- did not reveal pneumonia or consolidation. He rec'd aggressive pulmonary/RT treatments with nebs and pulmicort. ORTHOTIC FITTER was consulted for swallow eval due to end stage dementia; he was continued on his usual diet at the longterm- dysphagia level 3 diet. Lower extremities had significant pitting edema on admission. IV lasix was given with excellent diuresis/UO. BNP was normal at 97. Echocardiogram was obtained with normal EF of 55-60%. He will continue on 40mg of lasix PO with KCL supplementation on discharge. He will also be discharged on Keflex TID x 8 days for total of 14 days of antibiotic treatment. He should have follow up with his PCP, Dr. Espinoza within 5-7 days of discharge for recheck. - Discharge Data Discharge Date: 07/28/16 (admit date07/22/16) Discharge Disposition: DC/Tfer to Ed Educational Aide [facility], [place] 62 Condition: Fair - Discharge Diagnosis/Problem(s) (1) Acute UTI SNOMED Code(s): 659821282 ICD Code: N39.0 - URINARY TRACT INFECTION, SITE NOT SPECIFIED Status: Resolved Priority: High (2) Hematuria SNOMED Code(s): 79437753 ICD Code: R31.9 - HEMATURIA, UNSPECIFIED Status: Acute Priority: High (3) Alzheimer's dementia SNOMED Code(s): 36382093 ICD Code: G30.9 - ALZHEIMER'S DISEASE, UNSPECIFIED Status: Chronic Priority: Medium Qualifiers: Alzheimer's disease onset: unspecified onset Dementia behavioral disturbance: without behavioral disturbance Qualified Code(s): G30.9 - Alzheimer's disease, unspecified; F02.80 - Dementia in other diseases classified elsewhere without behavioral disturbance (4) Suprapubic catheter SNOMED Code(s): 107276113, 271978476 ICD Code: Z93.59 - OTHER CYSTOSTOMY STATUS Status: Chronic Priority: Medium (5) Obstructive uropathy SNOMED Code(s): 5042673 ICD Code: N13.9 - OBSTRUCTIVE AND REFLUX UROPATHY, UNSPECIFIED Status: Chronic Priority: Medium (6) Hypoxia SNOMED Code(s): 781758603, 770205235 ICD Code: R09.02 - HYPOXEMIA Status: Resolved Priority: High (7) Peripheral edema SNOMED Code(s): 029090286 ICD Code: R60.9 - EDEMA, UNSPECIFIED Status: Chronic Priority: High (8) Tachypnea SNOMED Code(s): 607160716 ICD Code: R06.82 - TACHYPNEA, NOT ELSEWHERE CLASSIFIED Status: Resolved Priority: High (9) Influenza SNOMED Code(s): 4354035 ICD Code: J11.1 - FLU DUE TO UNIDENTIFIED INFLUENZA VIRUS W OTH RESP MANIFEST Status: Resolved Priority: High Problem Details: A and B positive (10) Bacteremia SNOMED Code(s): 9197151 ICD Code: R78.81 - BACTEREMIA Status: Resolved Priority: High - Patient Summary/Data Operative Procedure(s) Performed: None Complications: None Consults: Consultations 07/23/16 09:41 Consult to Case Management [CONS] Routine Consult to Electric Organ Checker [CONS] Routine ORTHOTIC FITTER Evaluation and Treatment [CONS] Routine 07/24/16 10:14 OT Evaluation and Treatment [CONS] Routine PT Evaluation and Treatment [CONS] Routine Labs Pending at D/C: None Recommended Follow-up Testing/Procedures: Physical, Occupation & Speech therapies to eval & treat Diet recommendations soft foods ground meats, honey thick liquids from cup and sit up right for meals. Dysphagia precautions. Oxygen prn to keep sats greater than 90% Nursing please give tdap prior to discharge or document refusal Blood sugars before meals, at bedtime and PRN. Follow up with PCP, Dr. Espinoza within 5-7 days of discharge Planned Operative Procedure(s) after DC: None Hospital Course: As above - Patient Instructions Diet: Heart Healthy Diet (dysphagia diet; soft foods/ground meats/honey thick liquids), Low Sodium, Drink 8-10+ Glasses/Day Activity: As Tolerated Driving: Do Not Drive Showering/Bathing: May Shower Notify Provider of: Fever, Increased Pain, Swelling and Redness, Nausea and/or Vomiting (shortness of breath, tachypnea, worsening of cough) - Discharge Plan Prescriptions/Med Rec: Cephalexin [Keflex] 500 mg PO TID #24 capsule RX: Furosemide [Lasix] 40 mg PO DAILY #30 tablet RX: Potassium Chloride [Klor-Con M20] 40 meq PO BID #60 tab.er Home Medications: Home Meds RX: Acetaminophen [Acetaminophen 8 Hour] 650 mg PO BID 01/03/16 [History] RX: Camphor/Menthol [Sarna Lotion] 1 applic TOP BID 01/03/16 [History] RX: Docusate Sodium/Sennosides [Senna Plus] 2 tab PO BID 01/03/16 [History] RX: Hydrocortisone Acetate [Hydrocortisone] 1 applic TP BID PRN 01/03/16 [ History] RX: Ketoconazole [Nizoral 2% Crm] 1 applic TOP DAILY 01/03/16 [History] RX: Memantine [Namenda Xr] 14 mg PO DAILY 01/03/16 [History] RX: OLANZapine [Zyprexa] 15 mg PO BEDTIME 01/03/16 [History] RX: Polyethylene Glycol 3350 [MiraLAX] 17 gm PO DAILY 01/03/16 [History] RX: Trospium Chloride 20 mg PO BID 01/03/16 [History] RX: Insulin Aspart [NovoLOG] 2 units SQ 17 07/22/16 [History] RX: Insulin Detemir [Levemir] 20 units SQ BID 07/22/16 [History] Menthol Cough Drops 1 lozenge PO Q2HR PRN 07/23/16 [History] RX: Aspirin 81 mg PO DAILY 07/23/16 [History] RX: Bisacodyl [Dulcolax] 10 mg RECTAL DAILY PRN 07/23/16 [History] RX: Cranberry Extract [Cranberry] 405 mg PO BID 07/23/16 [History] RX: Sennosides 17.2 mg PO DAILY PRN 07/23/16 [History] RX: Zinc Oxide 1 applic TOP DAILY PRN 07/23/16 [History] Cephalexin [Keflex] 500 mg PO TID #24 capsule 07/28/16 [Rx] RX: Furosemide [Lasix] 40 mg PO DAILY #30 tablet 07/28/16 [Rx] RX: Potassium Chloride [Klor-Con M20] 40 meq PO BID #60 tab.er 07/28/16 [Rx] Patient Handouts: Hypoxemia, Urinary Tract Infection, Adult, Heart Failure, [id number], Suprapubic Catheter Replacement, Care After, Bacteremia, Suprapubic Catheter Home Guide Forms: ED Department Discharge Referrals: Ron Espinoza MD [Primary Care Provider] - - Discharge Summary/Plan Comment DC Time >30 min.: Yes (40 min) - General Info Date of Service: 07/28/16 Admission Dx/Problem (Free Text: Admission Diagnosis/Problem Admission Diagnosis/Problem UTI, Urinary tract infectious disease Dominic is an 86yo male admitted through ER with AUTI- ecoli organism on UC. He is being treated with IV Zosyn, changed to Rocephin due to sensitivity. He has been febrile overnight. 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 He is resting comfortably in chair on my exam this morning, appears in no acute distress. Does not make eye contact or any sort of communication. VSS. Labs improved this morning. WBC improved, CRP down slightly. Functional Status: Reports: pain controlled, tolerating diet, urinating ( incontinent). Denies: ambulating, new symptoms - Review of Systems General: Reports: No Symptoms Pulmonary: Denies: shortness of breath Systems Review Comment: ROS difficult/unable to obtain as patient is nonverbal with end stage dementia - Patient Data Vitals - Most Recent: Last Vital Signs Temp 98.6 F 07/27/16 23:29 Pulse 55 L 07/28/16 04:11 Resp 20 07/28/16 04:11 BP 118/67 07/28/16 04:11 Pulse Ox 96 07/28/16 06:08 Weight - Most Recent: 276 lb 11.2 oz I&O - Last 24 hours: Intake & Output 07/27/16 07/28/16 07/28/16 22:59 06:59 14:59 Intake Total 620 911 Output Total 925 550 Balance -305 361 Lab Results - Last 24 hrs: Laboratory Results - last 24 hr 07/27/16 07/27/16 07/27/16 Range/Units 13:17 17:47 23:10 WBC (4.23-9.07) K/mm3 RBC (4.63-6.08) M/mm3 Hgb (13.7-17.5) gm/L Hct (40.1-51.0) % MCV (79.0-92.2) fl MCH (25.7-32.2) pg MCHC (32.2-35.5) g/dl RDW Std Deviation (35.1-43.9) fL Plt Count (163-337) K/mm3 MPV (9.4-12.3) fl Neut % (Auto) (34.0-67.9) % Lymph % (Auto) (21.8-53.1) % [place] % (Auto) (5.3-12.2) % Eos % (Auto) (0.8-7.0) Baso % (Auto) (0.1-1.2) % Neut # (Auto) (1.78-5.38) K/mm3 Lymph # (Auto) (1.32-3.57) K/mm3 [place] # (Auto) (0.30-0.82) K/mm3 Eos # (Auto) (0.04-0.54) K/mm3 Baso # (Auto) (0.01-0.08) K/mm3 Sodium (136-145) mEq/L Potassium (3.5-5.1) mEq/L Chloride (98-107) mEq/L Carbon Dioxide (21-32) mEq/L Anion Gap (5-15) BUN (7-18) mg/dL Creatinine (0.7-1.3) mg/dL Est Cr Clr Drug Dosing mL/min Estimated GFR (MDRD) (>60) mL/min BUN/Creatinine Ratio (14-18) Glucose (83-115) mg/dL POC Glucose 134 H 158 H 98 (83-110) mg/dL Calcium (8.5-10.1) mg/dL Magnesium (1.8-2.4) mg/dl Total Bilirubin (0.2-1.0) mg/dL AST (15-37) U/L ALT (16-63) U/L Alkaline Phosphatase (46-116) U/L C-Reactive Protein (<1.0) mg/dL Total Protein (6.4-8.2) g/dl Albumin (3.4-5.0) g/dl Globulin gm/dL Albumin/Globulin Ratio (1-2) 07/28/16 07/28/16 07/28/16 Range/Units 05:35 05:35 05:35 WBC 10.33 H (4.23-9.07) K/mm3 RBC 4.39 L (4.63-6.08) M/mm3 Hgb 13.1 L (13.7-17.5) gm/L Hct 42.1 (40.1-51.0) % MCV 95.9 H (79.0-92.2) fl MCH 29.8 (25.7-32.2) pg MCHC 31.1 L (32.2-35.5) g/dl RDW Std Deviation 47.2 H (35.1-43.9) fL Plt Count 196 (163-337) K/mm3 MPV 10.4 (9.4-12.3) fl Neut % (Auto) 65.8 (34.0-67.9) % Lymph % (Auto) 17.5 L (21.8-53.1) % [place] % (Auto) 9.6 (5.3-12.2) % Eos % (Auto) 6.2 (0.8-7.0) Baso % (Auto) 0.5 (0.1-1.2) % Neut # (Auto) 6.80 H (1.78-5.38) K/mm3 Lymph # (Auto) 1.81 (1.32-3.57) K/mm3 [place] # (Auto) 0.99 H (0.30-0.82) K/mm3 Eos # (Auto) 0.64 H (0.04-0.54) K/mm3 Baso # (Auto) 0.05 (0.01-0.08) K/mm3 Sodium 145 (136-145) mEq/L Potassium 4.3 (3.5-5.1) mEq/L Chloride 109 H (98-107) mEq/L Carbon Dioxide 27 (21-32) mEq/L Anion Gap 13.3 (5-15) BUN 21 H (7-18) mg/dL Creatinine 0.9 (0.7-1.3) mg/dL Est Cr Clr Drug Dosing 55.94 mL/min Estimated GFR (MDRD) > 60 (>60) mL/min BUN/Creatinine Ratio 23.3 H (14-18) Glucose 115 (83-115) mg/dL POC Glucose (83-110) mg/dL Calcium 8.5 (8.5-10.1) mg/dL Magnesium 2.1 (1.8-2.4) mg/dl Total Bilirubin 0.5 (0.2-1.0) mg/dL AST 18 (15-37) U/L ALT 20 (16-63) U/L Alkaline Phosphatase 58 (46-116) U/L C-Reactive Protein 5.0 H* (<1.0) mg/dL Total Protein 7.2 (6.4-8.2) g/dl Albumin 2.8 L (3.4-5.0) g/dl Globulin 4.4 gm/dL Albumin/Globulin Ratio 0.6 L (1-2) 07/28/16 Range/Units 06:26 WBC (4.23-9.07) K/mm3 RBC (4.63-6.08) M/mm3 Hgb (13.7-17.5) gm/L Hct (40.1-51.0) % MCV (79.0-92.2) fl MCH (25.7-32.2) pg MCHC (32.2-35.5) g/dl RDW Std Deviation (35.1-43.9) fL Plt Count (163-337) K/mm3 MPV (9.4-12.3) fl Neut % (Auto) (34.0-67.9) % Lymph % (Auto) (21.8-53.1) % [place] % (Auto) (5.3-12.2) % Eos % (Auto) (0.8-7.0) Baso % (Auto) (0.1-1.2) % Neut # (Auto) (1.78-5.38) K/mm3 Lymph # (Auto) (1.32-3.57) K/mm3 [place] # (Auto) (0.30-0.82) K/mm3 Eos # (Auto) (0.04-0.54) K/mm3 Baso # (Auto) (0.01-0.08) K/mm3 Sodium (136-145) mEq/L Potassium (3.5-5.1) mEq/L Chloride (98-107) mEq/L Carbon Dioxide (21-32) mEq/L Anion Gap (5-15) BUN (7-18) mg/dL Creatinine (0.7-1.3) mg/dL Est Cr Clr Drug Dosing mL/min Estimated GFR (MDRD) (>60) mL/min BUN/Creatinine Ratio (14-18) Glucose (83-115) mg/dL POC Glucose 118 H (83-110) mg/dL Calcium (8.5-10.1) mg/dL Magnesium (1.8-2.4) mg/dl Total Bilirubin (0.2-1.0) mg/dL AST (15-37) U/L ALT (16-63) U/L Alkaline Phosphatase (46-116) U/L C-Reactive Protein (<1.0) mg/dL Total Protein (6.4-8.2) g/dl Albumin (3.4-5.0) g/dl Globulin gm/dL Albumin/Globulin Ratio (1-2) MICK Results - Last 24 hrs: Microbiology 07/25/16 07:59 Aerobic Blood Culture - Preliminary Blood - Venous - Lab Draw NO GROWTH AFTER 3 DAYS Anaerobic Blood Culture - Preliminary NO GROWTH AFTER 3 DAYS 07/25/16 07:41 Aerobic Blood Culture - Preliminary Blood - Venous NO GROWTH AFTER 3 DAYS Anaerobic Blood Culture - Preliminary NO GROWTH AFTER 3 DAYS 07/22/16 23:30 Aerobic Blood Culture - Preliminary Blood NO GROWTH AFTER 5 DAYS Anaerobic Blood Culture - Final Escherichia Coli Med Orders - Current: Current Medications Acetaminophen (Tylenol) 650 mg PO BID YOON Last Admin: 07/27/16 22:59 Dose: 650 mg Hydrocodone Bitart/Acetaminophen ([place] 325-5 Mg) 1 tab PO Q4H PRN PRN Reason: Pain (moderate 4-6) Albuterol/Ipratropium (Duoneb 3.0-0.5 Mg/3 Ml) 3 ml NEB Q4H PRN PRN Reason: Shortness Of Breath/wheezing Aspirin (Aspirin) 81 mg PO DAILY [facility] Last Admin: 07/27/16 09:39 Dose: 81 mg Bisacodyl (Dulcolax) 10 mg RECTAL DAILY PRN PRN Reason: Constipation Last Admin: 07/24/16 06:18 Dose: 10 mg Budesonide (Pulmicort) 0.5 mg NEB BIDRT [facility] Last Admin: 07/28/16 06:07 Dose: 0.5 mg Dextrose/Water (Dextrose 50% In Water) 50 ml IVPUSH ASDIRECTED PRN PRN Reason: Hypoglycemia Enoxaparin Sodium (Lovenox) 40 mg SUBCUT DAILY [facility] Last Admin: 07/27/16 09:40 Dose: 40 mg Furosemide (Lasix) 40 mg PO DAILY [facility] Last Admin: 07/27/16 09:39 Dose: 40 mg Ceftriaxone Sodium 1 gm/ (Sodium Chloride) 100 mls @ 200 mls/hr IV Q24H [facility] Last Admin: 07/27/16 09:41 Dose: 200 mls/hr Insulin Aspart (Novolog) 2 unit SUBCUT ACDINNER [facility] Last Admin: 07/27/16 17:47 Dose: 2 units Insulin Aspart (Novolog) 0 unit SUBCUT QIDACANDBED [facility] PRN Reason: Protocol Last Admin: 07/28/16 08:39 Dose: Not Given Insulin Detemir (Levemir) 20 unit SUBCUT BID [facility] Last Admin: 07/27/16 23:38 Dose: Not Given Levalbuterol HCl (Xopenex) 1.25 mg NEB TIDRT [facility] Last Admin: 07/28/16 06:07 Dose: 1.25 mg Magnesium Hydroxide (Milk Of Magnesia) 30 ml PO Q6H PRN PRN Reason: Constipation Last Admin: 07/25/16 17:12 Dose: 30 ml Olanzapine (Zyprexa) 15 mg PO BEDTIME [facility] Last Admin: 07/27/16 22:56 Dose: 15 mg Ondansetron HCl (Zofran Odt) 4 mg PO Q4H PRN PRN Reason: nausea, able to take PO Ondansetron HCl (Zofran) 4 mg IV Q4H PRN PRN Reason: Nausea/Vomiting Oseltamivir Phosphate (Tamiflu) 30 mg PO BID [facility] Stop: 07/29/16 21:01 Last Admin: 07/27/16 22:59 Dose: 30 mg Camphor/Menthol 1 (Applic) 0 each TOP BID [facility] Last Admin: 07/27/16 23:04 Dose: Not Given Cranberry Extract [ (Cranberry] 405 Mg) 0 each PO BID [facility] Last Admin: 07/27/16 22:58 Dose: Not Given Ketoconazole 1 (Applic) 0 each TOP DAILY [facility] Last Admin: 07/27/16 09:59 Dose: Not Given Memantine 14 Mg 0 each PO DAILY [facility] Last Admin: 07/27/16 09:59 Dose: Not Given Polyethylene Glycol (Miralax) 17 gm PO DAILY [facility] Last Admin: 07/27/16 09:40 Dose: 17 gm Potassium Chloride (Klor-Con M20) 40 meq PO BID [facility] Last Admin: 07/27/16 23:04 Dose: 40 meq Saccharomyces Boulardii (Florastor) 250 mg PO BID [facility] Last Admin: 07/27/16 22:58 Dose: 250 mg Senna (Senna) 17.2 mg PO DAILY PRN PRN Reason: Constipation Last Admin: 07/25/16 17:12 Dose: 17.2 mg Senna/Docusate Sodium (Senna Plus) 2 tab PO BID PRN PRN Reason: CONSTIPATION Last Admin: 07/25/16 08:40 Dose: 2 tab Trospium (Sanctura) 20 mg PO BID [facility] Last Admin: 07/27/16 22:58 Dose: 20 mg Discontinued Medications Diphenhydramine HCl (Benadryl) 25 mg IVPUSH ONETIME ONE Stop: 07/22/16 23:55 Last Admin: 07/22/16 23:57 Dose: 25 mg Diphenhydramine HCl (Benadryl) Confirm Administered Dose 50 mg .ROUTE .STK-MED ONE Stop: 07/22/16 23:57 Last Admin: 07/22/16 23:57 Dose: Not Given Furosemide (Lasix) 40 mg IVPUSH NOW ONE Stop: 07/22/16 21:33 Last Admin: 07/22/16 21:47 Dose: 40 mg Furosemide (Lasix) 20 mg IVPUSH ONETIME ONE Stop: 07/23/16 01:40 Last Admin: 07/23/16 02:32 Dose: 20 mg Furosemide (Lasix) 20 mg IVPUSH DAILY [facility] Last Admin: 07/24/16 08:52 Dose: 20 mg Levofloxacin/Dextrose 750 mg/ (Premix) 150 mls @ 100 mls/hr IV Q24H [facility] Last Admin: 07/22/16 23:31 Dose: 100 mls/hr Ceftriaxone Sodium 2 gm/ (Sodium Chloride) 100 mls @ 200 mls/hr IV ONETIME ONE Stop: 07/23/16 00:39 Last Admin: 07/23/16 00:16 Dose: 200 mls/hr Ceftriaxone Sodium 1 gm/ (Sodium Chloride) 100 mls @ 200 mls/hr IV Q24H [facility] Last Admin: 07/23/16 12:29 Dose: Not Given Piperacillin Sod/Tazobactam (Sod 4.5 gm/ Sodium Chloride) 100 mls @ 200 mls/hr IV ONETIME ONE Stop: 07/23/16 12:29 Last Admin: 07/23/16 12:26 Dose: 200 mls/hr Piperacillin Sod/Tazobactam (Sod 4.5 gm/ Sodium Chloride) 100 mls @ 25 mls/hr IV Q8H [facility] Last Admin: 07/25/16 05:41 Dose: 25 mls/hr Dextrose/Water (Dextrose 5% In Water) 500 mls @ 50 mls/hr IV ASDIRECTED [facility] Stop: 07/28/16 03:59 Last Admin: 07/27/16 22:05 Dose: 50 mls/hr Levalbuterol HCl (Xopenex) 1.25 mg NEB TID [facility] Oseltamivir Phosphate (Tamiflu) 30 mg PO BID [facility] Stop: 07/29/16 09:01 Last Admin: 07/24/16 12:35 Dose: Not Given Potassium Chloride (Klor-Con M20) 20 meq PO DAILY [facility] Last Admin: 07/24/16 08:54 Dose: 20 meq Potassium Chloride (Potassium Chloride) 40 meq PO ONETIME ONE Stop: 07/24/16 09:44 Last Admin: 07/24/16 09:55 Dose: 40 meq Potassium Chloride (Klor-Con M20) 20 meq PO BID [facility] Saccharomyces Boulardii (Florastor) 250 mg PO BID [facility] Last Admin: 07/24/16 10:51 Dose: Not Given Trimethoprim/Sulfamethoxazole (Septra Ds) 1 tab PO BID [facility] Last Admin: 07/25/16 08:40 Dose: 1 tab - Exam Quality Assessment: Reports: DVT prophylaxis General: Reports: alert (opens eyes today), no acute distress HEENT: Reports: Pupils equal, EOMI Neck: Reports: supple Lungs: Reports: Clear to auscultation, Normal respiratory effort, Decreased breath sounds (mid to lower lungs) Cardiovascular: Reports: Regular Rate, Regular Rhythm Abdomen: Reports: bowel sounds present, soft, no tenderness, no distension (Male) Exam: Deferred Rectal (Males) Exam: Deferred Extremities: Reports: edema (1-2+ bilat; teds present bilat) Skin: Reports: warm, dry, intact Psy/Mental Status: Reports: other (end stage dementia; nonverbal) *Q Meaningful Use (DIS) - VTE *Q VTE Criteria *Q: - Stroke *Q Stroke Criteria *Q: - AMI *Q AMI Criteria *Q:
[2016-07-28] MEDS: cefTRIAXone 1 GM in Sodium Chloride 0.9% 100 ML IV SCH (09:35)
[2016-07-28] MEDS: Acetaminophen 325 MG Tab PO SCH (09:35)
[2016-07-28] MEDS: Polyethylene Glycol 3350 Powder 17 GM Packet PO SCH (09:35)
[2016-07-28] MEDS: Oseltamivir 30 MG Cap PO SCH (09:35)
[2016-07-28] MEDS: Insulin Detemir 100 Units/ML 3 ML Pen SUBCUT SCH (09:36)
[2016-07-28] MEDS: Aspirin 81 MG Tab.Chew PO SCH (09:36)
[2016-07-28] MEDS: Trospium 20 MG Tab PO SCH (09:36)
[2016-07-28] MEDS: Furosemide 40 MG Tab PO SCH (09:36)
[2016-07-28] MEDS: Saccharomyces Boulardii (Probiotic) 250 MG Cap PO SCH (09:36)
[2016-07-28] MEDS: Potassium Chloride 20 MEQ Tab.ER PO SCH (09:36)
[2016-07-28] MEDS: CAMPHOR TOP SCH (09:37)
[2016-07-28] MEDS: MENTHOL TOP SCH (09:37)
[2016-07-28] MEDS: Enoxaparin 40 MG/0.4 ML Syringe SUBCUT SCH (09:37)
[2016-07-28] MEDS: MEMANTINE 14 MG PO SCH (09:38)
[2016-07-28] MEDS: CRANBERRY EXTRACT 405 MG PO SCH (09:38)
[2016-07-28] MEDS: KETOCONAZOLE TOP SCH (09:38)
[2016-07-28 09:41] VITALS: BP 119/85
== END 2016-07-28 13:15 | DRG 699 ==
LOC: JD.ED 20:46 → SUPCPDRO 20:46 → JD.MS 23:14
PROVIDERS: ADMIT Internal Medicine Cardiovascular Disease; ATTEND Internal Medicine Cardiovascular Disease
DX: N39.0 Urinary tract infection, site not specified (principal); T83.511A Infection and inflammatory reaction due to indwelling urethral catheter, initial encounter; N30.01 Acute cystitis with hematuria; R78.81 Bacteremia; E87.0 Hyperosmolality and hypernatremia; B96.20 Unspecified Escherichia coli [E. coli] as the cause of diseases classified elsewhere; R41.82 Altered mental status, unspecified; R60.9 Edema, unspecified; E78.00 Pure hypercholesterolemia, unspecified; R09.02 Hypoxemia; R06.82 Tachypnea, not elsewhere classified; J11.1 Influenza due to unidentified influenza virus with other respiratory manifestations; G30.9 Alzheimer's disease, unspecified; F02.80 Dementia in other diseases classified elsewhere, unspecified severity, without behavioral disturbance, psychotic disturbance, mood disturbance, and anxiety; E11.9 Type 2 diabetes mellitus without complications; N42.9 Disorder of prostate, unspecified; R33.9 Retention of urine, unspecified; Z79.4 Long term (current) use of insulin; N40.0 Benign prostatic hyperplasia without lower urinary tract symptoms; N13.9 Obstructive and reflux uropathy, unspecified; R13.10 Dysphagia, unspecified; J44.9 Chronic obstructive pulmonary disease, unspecified; Z93.50 Unspecified cystostomy status; Z87.440 Personal history of urinary (tract) infections; E78.5 Hyperlipidemia, unspecified; D64.9 Anemia, unspecified; Z88.1 Allergy status to other antibiotic agents; Z79.82 Long term (current) use of aspirin; Z79.899 Other long term (current) drug therapy; K59.00 Constipation, unspecified; G89.29 Other chronic pain; R53.1 Weakness; F32.9 Major depressive disorder, single episode, unspecified; F41.9 Anxiety disorder, unspecified; F20.9 Schizophrenia, unspecified; G47.00 Insomnia, unspecified; Z86.14 Personal history of Methicillin resistant Staphylococcus aureus infection; Z66 Do not resuscitate
CPT/HCPCS: 36415; 71010; 80053; 81001; 83880; 84484; 85025; 86140; 87077; 87086; 87088; 87186; 93005; 96374; 99285; J1940; 80048; 82962; 83036; 83735; 87040; 87804; 92526-GN; 92610-GN; 93306; 94640-76; 94664; 94760; 94761; 96375; 97116-GP; 97161-GP; 97166-GO; 97530-GO; 97530-GP; A9270-GY; J0696; J1200; J1650; J1815-GY; J1956; J2543; J7030; J7060

== ENCOUNTER 2016-08-04 20:07 | Inpatient (IN) | payer MEDICARE, MEDICAID ==
--- NOTE | 2016-08-04 20:44 | EDM.PDOC ---
ED HISTORY OF PRESENT ILLNESS - General Chief Complaint: Respiratory Problem Stated Complaint: [facility] Time Seen by Provider: 08/04/16 20:23 Source of Information: Reports: EMS notes reviewed, assisted records, Other (Prior ED visit) History Limitations: Reports: Other (Nonverbal history of Alzheimer's) - History of Present Illness INITIAL COMMENTS - FREE TEXT/NARRATIVE: Patient is a 6-year-old male who is a resident of [facility] with a past history of Alzheimer's, insulin-dependent diabetes, BPH, obstructive neuropathic, chronic suprapubic catheter, recurrent UTIs, COPD, and recent diagnosis of influenza. He presents to the ED with history of sudden onset of temperature of 102.2 at approximately 4:00 this afternoon with emesis x2 and loose stools. Patient received Tylenol with onset of fever and with admission to the ED temperature is 99.4. Nursing staff as noted patient to be in more lethargic. Patient was discharged from the hospital July 28, 2016. He was admitted for hypoxia, tachypnea, UTI, and positive influenza. While hospitalized he completed a course of Tamiflu and was on multiple IV antibiotics. Following aggressive pulmonary respiratory treatment with nebulizers and Pulmicort his respiratory complaints improved. Swallowing study was undertaken which revealed patient has dysphagia level III diet. He did have some lower extremity edema upon on admission and received IV Lasix with good results. He had echocardiogram obtained with normal EF of 55-60%. He was discharged on Keflex 500 mg 3 times a day for 8 days for a total of 14 days of antibiotic treatment. Per [facility] records patient has completed the Keflex treatment. Associated Symptoms (General): Reports: fever/chills, nausea/vomiting, other ( Diarrhea) Treatments [employer]: Reports: Acetaminophen - Related Data Allergies/ADRs: Allergies Allergy/AdvReac Type Severity Reaction Status Date / Time levofloxacin [From Levaquin] Allergy Intermediate Rash Verified 08/04/16 20:09 Home Meds: Home Meds Acetaminophen [Acetaminophen 8 Hour] 650 mg PO BID 01/03/16 [History] Camphor/Menthol [Sarna Lotion] 1 applic TOP BID 01/03/16 [History] Hydrocortisone Acetate [Hydrocortisone] 1 applic TP BID PRN 01/03/16 [History] Ketoconazole [Nizoral 2% Crm] 1 applic TOP DAILY 01/03/16 [History] Memantine [Namenda Xr] 14 mg PO DAILY 01/03/16 [History] OLANZapine [Zyprexa] 15 mg PO BEDTIME 01/03/16 [History] Polyethylene Glycol 3350 [MiraLAX] 17 gm PO DAILY 01/03/16 [History] Trospium Chloride 20 mg PO BID 01/03/16 [History] Insulin Aspart [NovoLOG] 2 units SQ DAILY 07/22/16 [History] Insulin Detemir [Levemir] 15 units SQ DAILY 07/22/16 [History] Aspirin 81 mg PO DAILY 07/23/16 [History] Bisacodyl [Dulcolax] 10 mg RECTAL DAILY PRN 07/23/16 [History] Cranberry Extract [Cranberry] 405 mg PO BID 07/23/16 [History] Menthol Cough Drops 1 lozenge PO Q2HR PRN 07/23/16 [History] Sennosides 17.2 mg PO DAILY PRN 07/23/16 [History] Zinc Oxide 1 applic TOP DAILY PRN 07/23/16 [History] Cephalexin [Keflex] 500 mg PO TID #24 capsule 07/28/16 [Rx] Furosemide [Lasix] 40 mg PO DAILY #30 tablet 07/28/16 [Rx] Docusate Sodium/Sennosides [Senna Plus] 2 tab PO BID 08/04/16 [History] Insulin Detemir [Levemir] 15 unit SQ BEDTIME 08/04/16 [History] Potassium Chloride [Klor-Con M20] 40 meq PO BID 08/04/16 [History] Past Medical History HEENT History: Reports: Impaired vision Cardiovascular History: Reports: High cholesterol Respiratory History: Reports: COPD Gastrointestinal History: Reports: Chronic constipation Genitourinary History: Reports: Prostate disorder, Retention, urinary Other Genitourinary History: obstructive and reflux uropathy Musculoskeletal History: Reports: Other (see below) Other Musculoskeletal History: spinal stenosis Neurological History: Reports: Other (see below) Other Neuro History: dysphagia Psychiatric History: Reports: Alzheimers disease, Anxiety, Dementia, Depression Other Psychiatric History: insomnia Endocrine/Metabolic History: Reports: Diabetes, type II Oncologic (Cancer) History: Reports: Other (see below) (Skin cancer, NOS) Other Oncologic History: hx malignant neoplasm of skin to face Dermatologic History: Reports: Other (see below) Other Dermatologic History: freq skin breakdown, pt likes to scratch and pinch - Infectious Disease History Infectious Disease History: Reports: MRSA - Past Surgical History Male Surgical History: Reports: Suprapubic catheter placement Social & Family History - Family History Family Medical History: Unobtainable - Tobacco Use Smoking Status *Q: Unknown Ever Smoked Second Hand Smoke Exposure: No - Caffeine Use Caffeine Use: Reports: None - Recreational Drug Use Recreational Drug Use: No - Living Situation & Occupation Living situation: Reports: extended care facility ED ROS GENERAL - Review of Systems Review Of Systems: Unable To Obtain ED EXAM, GENERAL - Physical Exam Exam: See Below Exam Limited By: No limitations General Appearance: alert, WD/WN, no apparent distress Nose: normal inspection Throat/Mouth: Normal voice, No airway compromise Neck: normal inspection, supple, other (No JVD) Respiratory/Chest: no respiratory distress, rhonchi, wheezing Cardiovascular: normal peripheral pulses, regular rate, rhythm, no JVD Peripheral Pulses: 2+: radial (L) GI/Abdominal: soft, non tender, no organomegaly, no distention, abnormal bowel sounds: (Hyperactive), other (Suprapubic catheter in place.) Extremities: other (1 to 2+ bilaterally lower extremities. ) Neurological: alert, other (nonverbal) Psychiatric: other (no acute distress) Skin Exam: Warm, Dry, Intact, Normal color, No rash Course - Vital Signs Last Recorded V/S: Last Vital Signs Temp 99.4 F 08/04/16 20:10 Pulse 99 08/04/16 20:10 Resp 40 H 08/04/16 20:10 BP 133/74 08/04/16 20:10 Pulse Ox 92 L 08/04/16 20:10 - Orders/Labs/Meds Orders: Active Orders 24 hr Category Date Time Status EKG 12 Lead [EKG Documentation Completion] [RC] STAT Care 08/04/16 21:04 Active Abdomen 1V Flat [CR] Stat Exams 08/04/16 21:03 Taken Abdomen Pelvis w Cont [CT] Stat Exams 08/04/16 22:20 Taken CXR [Chest 1V Frontal] [CR] Stat Exams 08/04/16 20:27 Taken C DIFFICILE BY PCR W/NAP1 [MOLEC] Stat Lab 08/04/16 21:05 Ordered CULTURE BLOOD [BC] Stat Lab 08/04/16 20:47 Received CULTURE BLOOD [BC] Stat Lab 08/04/16 20:57 Received CULTURE URINE [RM] Stat Lab 08/04/16 21:39 Received Sodium Chloride 0.9% [Normal Saline] 1,000 ml Med 08/04/16 21:15 Active IV ASDIRECTED Blood Culture x2 Reflex Set [OM.PC] Stat Oth 08/04/16 20:26 Ordered Medication Orders Sodium Chloride (Normal Saline) 1,000 mls @ 75 mls/hr IV ASDIRECTED YOON Last Admin: 08/04/16 21:53 Dose: 75 mls/hr Labs: Laboratory Tests 08/04/16 08/04/16 08/04/16 Range/Units 20:47 20:47 20:47 WBC 21.88 H (4.23-9.07) K/mm3 RBC 4.54 L (4.63-6.08) M/mm3 Hgb 13.6 L (13.7-17.5) gm/L Hct 41.4 (40.1-51.0) % MCV 91.2 (79.0-92.2) fl MCH 30.0 (25.7-32.2) pg MCHC 32.9 (32.2-35.5) g/dl RDW Std Deviation 44.8 H (35.1-43.9) fL Plt Count 251 (163-337) K/mm3 MPV 10.3 (9.4-12.3) fl Neut % (Auto) 91.7 H (34.0-67.9) % Lymph % (Auto) 2.7 L (21.8-53.1) % Petroleum % (Auto) 5.4 (5.3-12.2) % Eos % (Auto) 0 L (0.8-7.0) Baso % (Auto) 0.0 L (0.1-1.2) % Neut # (Auto) 20.04 H (1.78-5.38) K/mm3 Lymph # (Auto) 0.58 L (1.32-3.57) K/mm3 Petroleum # (Auto) 1.19 H (0.30-0.82) K/mm3 Eos # (Auto) 0.01 L (0.04-0.54) K/mm3 Baso # (Auto) 0.01 (0.01-0.08) K/mm3 Manual Slide Review Abnormal smear PT 10.7 (8.0-13.0) SECONDS INR 0.98 APTT 35 (22-36) SECONDS Sodium 137 (136-145) mEq/L Potassium 4.8 (3.5-5.1) mEq/L Chloride 103 (98-107) mEq/L Carbon Dioxide 25 (21-32) mEq/L Anion Gap 13.8 (5-15) BUN 9 (7-18) mg/dL Creatinine 1.2 (0.7-1.3) mg/dL Est Cr Clr Drug Dosing 41.96 mL/min Estimated GFR (MDRD) 57 (>60) mL/min BUN/Creatinine Ratio 7.5 L (14-18) Glucose 164 H (83-115) mg/dL Lactic Acid (0.4-2.0) mmol/L Calcium 8.7 (8.5-10.1) mg/dL Total Bilirubin 0.4 (0.2-1.0) mg/dL AST 18 (15-37) U/L ALT 22 (16-63) U/L Alkaline Phosphatase 70 (46-116) U/L Troponin I (0.00-0.056) ng/mL C-Reactive Protein 6.4 H* (<1.0) mg/dL B-Natriuretic Peptide (0-100) pg/mL Total Protein 7.7 (6.4-8.2) g/dl Albumin 3.1 L (3.4-5.0) g/dl Globulin 4.6 gm/dL Albumin/Globulin Ratio 0.7 L (1-2) Lipase 55 L (73-393) U/L Urine Color (Yellow) Urine Appearance (Clear) Urine pH (5.0-8.0) Ur Specific [place] (1.005-1.030) Urine Protein (Negative) Urine Glucose (UA) (Negative) Urine Ketones (Negative) Urine Occult Blood (Negative) Urine Nitrite (Negative) Urine Bilirubin (Negative) Urine Urobilinogen (0.2-1.0) Ur Leukocyte Esterase (Negative) Urine RBC (0-5) /hpf Urine WBC (0-5) /hpf Ur Epithelial Cells Ur Squamous Epith Cells (0-5) /hpf Urine Bacteria (FEW) /hpf Urine Mucus (FEW) /hpf 08/04/16 08/04/16 08/04/16 Range/Units 20:47 20:47 20:47 WBC (4.23-9.07) K/mm3 RBC (4.63-6.08) M/mm3 Hgb (13.7-17.5) gm/L Hct (40.1-51.0) % MCV (79.0-92.2) fl MCH (25.7-32.2) pg MCHC (32.2-35.5) g/dl RDW Std Deviation (35.1-43.9) fL Plt Count (163-337) K/mm3 MPV (9.4-12.3) fl Neut % (Auto) (34.0-67.9) % Lymph % (Auto) (21.8-53.1) % Petroleum % (Auto) (5.3-12.2) % Eos % (Auto) (0.8-7.0) Baso % (Auto) (0.1-1.2) % Neut # (Auto) (1.78-5.38) K/mm3 Lymph # (Auto) (1.32-3.57) K/mm3 Petroleum # (Auto) (0.30-0.82) K/mm3 Eos # (Auto) (0.04-0.54) K/mm3 Baso # (Auto) (0.01-0.08) K/mm3 Manual Slide Review PT (8.0-13.0) SECONDS INR APTT (22-36) SECONDS Sodium (136-145) mEq/L Potassium (3.5-5.1) mEq/L Chloride (98-107) mEq/L Carbon Dioxide (21-32) mEq/L Anion Gap (5-15) BUN (7-18) mg/dL Creatinine (0.7-1.3) mg/dL Est Cr Clr Drug Dosing mL/min Estimated GFR (MDRD) (>60) mL/min BUN/Creatinine Ratio (14-18) Glucose (83-115) mg/dL Lactic Acid 2.4 H (0.4-2.0) mmol/L Calcium (8.5-10.1) mg/dL Total Bilirubin (0.2-1.0) mg/dL AST (15-37) U/L ALT (16-63) U/L Alkaline Phosphatase (46-116) U/L Troponin I 0.050 (0.00-0.056) ng/mL C-Reactive Protein (<1.0) mg/dL B-Natriuretic Peptide 85 (0-100) pg/mL Total Protein (6.4-8.2) g/dl Albumin (3.4-5.0) g/dl Globulin gm/dL Albumin/Globulin Ratio (1-2) Lipase (73-393) U/L Urine Color (Yellow) Urine Appearance (Clear) Urine pH (5.0-8.0) Ur Specific [place] (1.005-1.030) Urine Protein (Negative) Urine Glucose (UA) (Negative) Urine Ketones (Negative) Urine Occult Blood (Negative) Urine Nitrite (Negative) Urine Bilirubin (Negative) Urine Urobilinogen (0.2-1.0) Ur Leukocyte Esterase (Negative) Urine RBC (0-5) /hpf Urine WBC (0-5) /hpf Ur Epithelial Cells Ur Squamous Epith Cells (0-5) /hpf Urine Bacteria (FEW) /hpf Urine Mucus (FEW) /hpf 08/04/16 Range/Units 21:39 WBC (4.23-9.07) K/mm3 RBC (4.63-6.08) M/mm3 Hgb (13.7-17.5) gm/L Hct (40.1-51.0) % MCV (79.0-92.2) fl MCH (25.7-32.2) pg MCHC (32.2-35.5) g/dl RDW Std Deviation (35.1-43.9) fL Plt Count (163-337) K/mm3 MPV (9.4-12.3) fl Neut % (Auto) (34.0-67.9) % Lymph % (Auto) (21.8-53.1) % Petroleum % (Auto) (5.3-12.2) % Eos % (Auto) (0.8-7.0) Baso % (Auto) (0.1-1.2) % Neut # (Auto) (1.78-5.38) K/mm3 Lymph # (Auto) (1.32-3.57) K/mm3 Petroleum # (Auto) (0.30-0.82) K/mm3 Eos # (Auto) (0.04-0.54) K/mm3 Baso # (Auto) (0.01-0.08) K/mm3 Manual Slide Review PT (8.0-13.0) SECONDS INR APTT (22-36) SECONDS Sodium (136-145) mEq/L Potassium (3.5-5.1) mEq/L Chloride (98-107) mEq/L Carbon Dioxide (21-32) mEq/L Anion Gap (5-15) BUN (7-18) mg/dL Creatinine (0.7-1.3) mg/dL Est Cr Clr Drug Dosing mL/min Estimated GFR (MDRD) (>60) mL/min BUN/Creatinine Ratio (14-18) Glucose (83-115) mg/dL Lactic Acid (0.4-2.0) mmol/L Calcium (8.5-10.1) mg/dL Total Bilirubin (0.2-1.0) mg/dL AST (15-37) U/L ALT (16-63) U/L Alkaline Phosphatase (46-116) U/L Troponin I (0.00-0.056) ng/mL C-Reactive Protein (<1.0) mg/dL B-Natriuretic Peptide (0-100) pg/mL Total Protein (6.4-8.2) g/dl Albumin (3.4-5.0) g/dl Globulin gm/dL Albumin/Globulin Ratio (1-2) Lipase (73-393) U/L Urine Color Yellow (Yellow) Urine Appearance Slt cloudy H (Clear) Urine pH 6.5 (5.0-8.0) Ur Specific [place] 1.020 (1.005-1.030) Urine Protein 1+ H (Negative) Urine Glucose (UA) Negative (Negative) Urine Ketones Trace H (Negative) Urine Occult Blood Trace-intact H (Negative) Urine Nitrite Negative (Negative) Urine Bilirubin Negative (Negative) Urine Urobilinogen 0.2 (0.2-1.0) Ur Leukocyte Esterase Trace H (Negative) Urine RBC 0-5 (0-5) /hpf Urine WBC 10-20 H (0-5) /hpf Ur Epithelial Cells Not Reportable Ur Squamous Epith Cells 0-5 (0-5) /hpf Urine Bacteria Moderate H (FEW) /hpf Urine Mucus Few (FEW) /hpf Meds: Medications Generic Name Dose Route Start Last Admin Trade Name Freq PRN Reason Stop Dose Admin Sodium Chloride 1,000 mls @ 75 mls/hr 08/04/16 21:15 08/04/16 21:53 Normal Saline IV 75 mls/hr ASDIRECTED YOON Administration Discontinued Medications Generic Name Dose Route Start Last Admin Trade Name Riley PRN Reason Stop Dose Admin Ceftriaxone Sodium 2 gm/ 100 mls @ 200 mls/hr 08/04/16 22:10 08/04/16 22:27 Sodium Chloride IV 08/04/16 22:39 200 mls/hr ONETIME ONE Administration Iopamidol 25 ml 08/04/16 22:33 08/04/16 22:57 Isovue-370 (76%) IVPUSH 08/04/16 22:34 25 ml ONETIME ONE Administration Iopamidol 100 ml 08/04/16 22:33 08/04/16 22:57 Isovue-370 (76%) IVPUSH 08/04/16 22:34 100 ml ONETIME ONE Administration Ondansetron HCl 4 mg 08/04/16 21:01 08/04/16 21:53 Zofran IVPUSH 08/04/16 21:02 4 mg ONETIME ONE Administration Pantoprazole Sodium 40 mg 08/04/16 21:01 08/04/16 21:55 Protonix Iv IVPUSH 08/04/16 21:02 40 mg ONETIME ONE Administration - Re-Assessments/Exams Free Text/Narrative Re-Assessment/Exam: Order peripheral IV with normal saline 75 mL per hour, Zofran 4 mg IVP, and Protonix 40 mg IVP. Initial labs and studies include CBC, chem 14, CRP, blood cultures x2, lactic acid, lipase, influenza screen, PT/INR, PTT, troponin, BNP, C. difficile by PCR , chest x-ray one view, and UA with micro. Patient has indwelling catheter. 08/04/16 20:33 X-ray of the chest reviewed with Dr. Centeno. Cardiomegaly present with distended large bowel present. No findings concerning for pulmonary infiltrates. EKG first the AV block at a rate of [address] changes noted. Ordered x-ray of the abdomen. Patient unable to stand. Changed to one view only. Patient was recently discharged from the hospital July 28, 2016. He was admitted for urinary tract infection with hematuria, and influenza positive. He completed a course of Tamiflu. Upon discharge from the hospital patient was provided Keflex 500mg 3 times a day for 8 days for a total of 14 days of antibiotic treatment. It appears [facility] he has completed the course of Keflex. 08/04/16 21:32 x-ray of the abdomen reveals what appears to large amount air within the stomach. Questionable early onset of ileus present. Nonspecific stool and air patterns throughout. Final interpretation pending. Labs reviewed: Sodium 137, potassium 4.8, creatinine 1.2, INR is 13.8, lactic acid is 2.4, CRP 6.4, lipase 55, troponin 0.050, BNP is 85, white blood cell count 21.88, hemoglobin is 13.6, neutrophil percentage 91.7 with a left shift, coags are within normal limits. UA revealed slightly cloudy, specific gravity 1.020, protein 1+, ketones trace, blood trace intact, nitrates negative, leukocyte esterase trace, urine wbc's 10- 20, urine bacteria moderate. Urine cultures obtained. Influenza screen was negative. Reviewed previous labs from hospitalization. Blood cultures were positive for Escherichia coli. Urine culture was also positive for Escherichia coli. Patient received IV Zosyn, Levaquin, Rocephin while hospitalized. Ordered CT of the abdomen and pelvis with IV contrast only. Patient will not tolerate oral contrast. Cr was 1.2. Urine is dark. BNP 58 with EF of 55 to 60% . Will prehydrate with NS 250mls/hr. 1150 CT study reviewed with Dr. Centeno. Gaseous distention noted to the stomach with large renal cyst noted bilaterally. Left>Right. No other obvious acute abnormalities noted. Final interpretation pending. 08/04/16 23:[address] Arenas. She has accepted the patient. He will be admitted inpatient to [facility] telemetry. Admission orders have been placed. She'll be notified if CT study of the abdomen and pelvis reveals any surgical abnormalities. 08/05/16 00:02 CT abdomen and pelvis impression: No CT findings of acute appendicitis. Marked prostatic hypertrophy. Suprapubic catheter in place with decompressed bladder. Possible bladder wall thickening. Correlation for cystitis. Additional nonemergent CT findings above. 08/05/16 00:04 Admission orders placed by Dr. Centeno. Departure - Departure Time of Disposition: 00:00 Disposition: Admitted As Inpatient 65 Condition: fair Clinical Impression: Lethargic, Cystitis UTI (urinary tract infection) due to urinary indwelling catheter Qualifiers: Indwelling urinary catheter type: unspecified Encounter type: initial encounter Qualified Code(s): T83.511A - Infection and inflammatory reaction due to indwelling urethral catheter, initial encounter; N39.0 - Urinary tract infection, site not specified Fever Qualifiers: Fever type: unspecified Qualified Code(s): R50.9 - Fever, unspecified Nausea & vomiting Qualifiers: Vomiting type: unspecified Vomiting Intractability: non-intractable Qualified Code(s): R11.2 - Nausea with vomiting, unspecified Diarrhea Qualifiers: Diarrhea type: unspecified type Qualified Code(s): R19.7 - Diarrhea, unspecified Sepsis Qualifiers: Sepsis type: sepsis due to unspecified organism Qualified Code(s): A41.9 - Sepsis, unspecified organism Forms: ED Department Discharge - My Orders Last 24 Hours: My Active Orders 08/04/16 20:26 Blood Culture x2 Reflex Set [OM.PC] Stat 08/04/16 20:27 CXR [Chest 1V Frontal] [CR] Stat 08/04/16 20:47 CULTURE BLOOD [BC] Stat 08/04/16 20:57 CULTURE BLOOD [BC] Stat 08/04/16 21:03 Abdomen 1V Flat [CR] Stat 08/04/16 21:04 EKG 12 Lead [EKG Documentation Completion] [RC] STAT 08/04/16 21:05 C DIFFICILE BY PCR W/NAP1 [MOLEC] Stat 08/04/16 21:15 Sodium Chloride 0.9% [Normal Saline] 1,000 ml IV ASDIRECTED 08/04/16 21:39 CULTURE URINE [RM] Stat 08/04/16 22:20 Abdomen Pelvis w Cont [CT] Stat - Assessment/Plan Last 24 Hours: My Active Orders 08/04/16 20:26 Blood Culture x2 Reflex Set [OM.PC] Stat 08/04/16 20:27 CXR [Chest 1V Frontal] [CR] Stat 08/04/16 20:47 CULTURE BLOOD [BC] Stat 08/04/16 20:57 CULTURE BLOOD [BC] Stat 08/04/16 21:03 Abdomen 1V Flat [CR] Stat 08/04/16 21:04 EKG 12 Lead [EKG Documentation Completion] [RC] STAT 08/04/16 21:05 C DIFFICILE BY PCR W/NAP1 [MOLEC] Stat 08/04/16 21:15 Sodium Chloride 0.9% [Normal Saline] 1,000 ml IV ASDIRECTED 08/04/16 21:39 CULTURE URINE [RM] Stat 08/04/16 22:20 Abdomen Pelvis w Cont [CT] Stat
[2016-08-04] MEDS ORDERED: Pantoprazole 40 MG Vial IVPUSH ONE (21:01)
[2016-08-04] MEDS ORDERED: Ondansetron 4 MG/2 ML SDV IVPUSH ONE (21:01)
[2016-08-04] MEDS ORDERED: Sodium Chloride 0.9% 1,000 ML IV SCH (21:15)
[2016-08-04] MEDS ORDERED: cefTRIAXone 2 GM in Sodium Chloride 0.9% 100 ML IV ONE (22:10)
[2016-08-04] MEDS ORDERED: Iopamidol 755 MG/ML 50 ML Bottle IVPUSH ONE (22:33)
[2016-08-04] MEDS ORDERED: Iopamidol 755 Mg/ML 100 ML Bottle IVPUSH ONE (22:33)
[2016-08-04] MEDS ORDERED: Diatrizoate Meglumine/Diatrizoate Sodium 37% 120 ML Bottle PO ONE (22:33)
[2016-08-05] MEDS ORDERED: 50% Dextrose in Water 50 ML Syringe IVPUSH PRN (00:30)
[2016-08-05] MEDS ORDERED: Acetaminophen 325 MG Tab PO PRN (00:32)
[2016-08-05] MEDS ORDERED: Dextrose 5%-0.9% NaCl 1,000 ML IV SCH (00:45)
[2016-08-05] MEDS: Insulin Aspart 100 Units/ML 3 ML Pen SUBCUT SCH ×4 (06:52→22:08)
[2016-08-05] MEDS: metroNIDAZOLE/Normal Saline 500 MG in Premix Bag 1 BAG IV SCH ×3 (07:25→21:29)
--- NOTE | 2016-08-05 08:03 | CR ---
Chest: Portable view of the chest was obtained. Comparison: Previous chest x-ray of 07/22/16. Heart size and mediastinum are normal. Lungs are clear. Bony structures are grossly intact. Poor inspiratory effort is seen. Impression: 1. Nothing acute is identified on portable chest x-ray. Diagnostic code #2
--- NOTE | 2016-08-05 08:03 | CT ---
CT abdomen and pelvis Technique: Multiple axial sections were obtained from above the dome of the diaphragm inferiorly through the pubic symphysis. Oral contrast was not utilized. Intravenous contrast was given. Comparison: Previous CT abdomen and pelvis exam of 05/23/11 is available. Findings: Visualized lung bases show nothing acute. Liver shows no focal parenchymal abnormality. Gallbladder shows no calcified gallstones. Spleen appears within normal limits in size. Adrenal glands show no nodule. Pancreas shows fatty replacement without discrete mass. Multiple cysts are seen within both kidneys with largest located within the left kidney measuring approximately 10.5 cm in size. These renal cysts are fairly stable in appearance from prior exam with the exception of disappearance of the cyst within the right kidney. 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 AP dimension is 3.0 cm. No retroperitoneal adenopathy or mesenteric abnormalities are seen. Prostate gland is enlarged. Suprapubic catheter is seen. Bladder wall is mildly prominent felt to relate to the suprapubic catheter. Delayed images show contrast within nondilated distal ureters and within the bladder. Small fat-containing left inguinal hernia is noted. Bone window settings show diffuse degenerative change throughout the spine. Impression: 1. Findings as noted above. Nothing acute is identified on CT study of the abdomen and pelvis. Diagnostic code #3 I agree with preliminary report issued by [employer] (preliminary report dictated on 08/05/16, 12:59 AM Central Time)
--- NOTE | 2016-08-05 08:03 | CR ---
Abdomen: Supine view of the abdomen was obtained. Comparison: Previous abdominal x-ray of 08/01/11. Scattered gas within small bowel is seen. This is felt to be within normal limits. Mild degenerative spurring is noted within the spine. No abnormal calcifications or soft tissue abnormality is seen. Impression: 1. Incidental findings. Diagnostic code #2
[2016-08-05] MEDS ORDERED: Diphtheria,Pertussis(Acell),Tetanus Vaccine 0.5 ML SDV inactive IM ONE (08:05)
[2016-08-05] MEDS ORDERED: Enoxaparin 30 MG/0.3 ML Syringe SUBCUT SCH (09:00)
[2016-08-05] MEDS: Enoxaparin 40 MG/0.4 ML Syringe SUBCUT SCH (09:12)
[2016-08-05] MEDS: Saccharomyces Boulardii (Probiotic) 250 MG Cap PO SCH ×2 (09:50→21:29)
--- NOTE | 2016-08-05 10:03 | PCM.HP ---
H&P History of Present Illness - General Date of Service: 08/05/16 Admit Problem/Dx: Admission Diagnosis/Problem Admission Diagnosis/Problem UTI, Urinary tract infection following delivery Source of Information: Provider - History of Present Illness Initial Comments - Free Text/Narative: 86 year old NH patient recently discharged for UTI, has indwelling suprapubic catheter presents with a fever and change in mental status. The patient's baseline is Alzheimer's dementia, he is nonverbal. He was recently at [facility]07/23/16-07/28/16; during that time frame including discharge, the patient received a total of 14 days of antibiotics. He was discharged on Keflex, the E Coli was musa sensitive. He has had multiple loose stools; he will be treated for AUTI as well as evaluated for C Diff. Onset of Symptoms: Reports: sudden. Denies: today Symptom Onset Date: 08/04/16 Duration of Symptoms: Reports: Hour(s):, Getting worse Location: Reports: abdomen Quality: Reports: Same as previous episode Severity: moderate Improves with: Reports: Medication Worsens with: Reports: None Associated Symptoms: Reports: confusion, malaise, weakness - Related Data Allergies/Adverse Reactions: Allergies Allergy/AdvReac Type Severity Reaction Status Date / Time levofloxacin [From Levaquin] Allergy Intermediate Rash Verified 08/05/16 02:18 Home Medications: Home Meds Acetaminophen [Acetaminophen 8 Hour] 650 mg PO BID 01/03/16 [History] Camphor/Menthol [Sarna Lotion] 1 applic TOP BID 01/03/16 [History] Ketoconazole [Nizoral 2% Crm] 1 applic TOP PRN 01/03/16 [History] Memantine [Namenda Xr] 14 mg PO DAILY 01/03/16 [History] OLANZapine [Zyprexa] 15 mg PO BEDTIME 01/03/16 [History] Polyethylene Glycol 3350 [MiraLAX] 17 gm PO DAILY 01/03/16 [History] Trospium Chloride 20 mg PO BIDMEALS 01/03/16 [History] Insulin Aspart [NovoLOG] 2 units SQ 1700 07/22/16 [History] Insulin Detemir [Levemir] 20 units SQ QAM 07/22/16 [History] Aspirin 81 mg PO DAILY 07/23/16 [History] Bisacodyl [Dulcolax] 10 mg RECTAL DAILY PRN 07/23/16 [History] Cranberry Extract [Cranberry] 405 mg PO BID 07/23/16 [History] Menthol Cough Drops 1 lozenge PO Q2HR PRN 07/23/16 [History] Sennosides 17.2 mg PO DAILY PRN 07/23/16 [History] Zinc Oxide 1 applic TOP DAILY PRN 07/23/16 [History] Cephalexin [Keflex] 500 mg PO TID #24 capsule 07/28/16 [Rx] Furosemide [Lasix] 40 mg PO DAILY #30 tablet 07/28/16 [Rx] Docusate Sodium/Sennosides [Senna Plus] 2 tab PO BID 08/04/16 [History] Insulin Detemir [Levemir] 15 unit SQ BEDTIME 08/04/16 [History] Potassium Chloride [Klor-Con M20] 40 meq PO BID 08/04/16 [History] Past Medical History HEENT History: Reports: Impaired vision Cardiovascular History: Reports: High cholesterol, Other (see below) Other Cardiovascular History: Heart failure (noted on longterm diagnoses) Respiratory History: Reports: COPD Gastrointestinal History: Reports: Chronic constipation Genitourinary History: Reports: Prostate disorder, Pyelonephritis, Renal disease , Retention, urinary, UTI, recurrent Other Genitourinary History: obstructive and reflux uropathy. benign prostatic hyperplasia with lower urinary tract symptoms Musculoskeletal History: Reports: Other (see below) Other Musculoskeletal History: spinal stenosis. Ataxic gait. weakness Neurological History: Reports: Other (see below) Other Neuro History: dysphagia Psychiatric History: Reports: Alzheimers disease, Anxiety, Dementia, Depression , Schizophrenia Other Psychiatric History: insomnia Endocrine/Metabolic History: Reports: Diabetes, type II Oncologic (Cancer) History: Reports: Other (see below) Other Oncologic History: hx malignant neoplasm of skin to face Dermatologic History: Reports: Other (see below) Other Dermatologic History: freq skin breakdown, pt likes to scratch and pinch. Skin cancer history - Infectious Disease History Infectious Disease History: Reports: Influenza, MRSA - Past Surgical History Male Surgical History: Reports: Suprapubic catheter placement Social & Family History - Family History Family Medical History: Unobtainable - Tobacco Use Smoking Status *Q: Unknown Ever Smoked Second Hand Smoke Exposure: No - Caffeine Use Caffeine Use: Reports: None - Recreational Drug Use Recreational Drug Use: No - Living Situation & Occupation Living situation: Reports: extended care facility H&P Review of Systems - Review of Systems: Review Of Systems: See Below General: Reports: fever, chills, malaise, weakness HEENT: Reports: no symptoms Pulmonary: Reports: No Symptoms Cardiovascular: Reports: no symptoms Gastrointestinal: Reports: Diarrhea, Nausea, Vomiting Genitourinary: Reports: no symptoms Musculoskeletal: Reports: no symptoms Skin: Reports: no symptoms Psychiatric: Reports: no symptoms Neurological: Reports: No Symptoms Hematologic/Lymphatic: Reports: no symptoms Immunologic: Reports: no symptoms Exam - Exam Exam: See Below - Vital Signs Vital Signs: Last Vital Signs Temp 37.3 C 08/05/16 08:00 Pulse 83 08/05/16 08:00 Resp 20 08/05/16 08:00 BP 137/104 H 08/05/16 08:00 Pulse Ox 95 08/05/16 08:00 Weight: 129.138 kg - Exam Quality Assessment: DVT prophylaxis General: alert, oriented, cooperative HEENT: Conjunctiva clear, EACs clear, Nares patent, Normal nasal septum, Pupils equal, Pupils reactive Neck: supple, trachea midline Lungs: Normal respiratory effort Cardiovascular: regular rate Abdomen: normal bowel sounds, soft (Male) Exam: Deferred Rectal (Males) Exam: Deferred Back Exam: normal inspection Extremities: normal pulses Skin: warm Neurological: cranial nerves intact Neuro Extensive - Mental Status: alert Neuro Extensive - Motor, Sensory, Reflexes: CN II-XII intact Psychiatric: alert - Patient Data Lab Results last 24 hrs: Laboratory Results - last 24 hr 08/05/16 08/05/16 08/05/16 Range/Units 03:20 06:47 07:15 Sodium 140 (136-145) mEq/L Potassium 4.1 (3.5-5.1) mEq/L Chloride 107 (98-107) mEq/L Carbon Dioxide 24 (21-32) mEq/L Anion Gap 13.1 (5-15) BUN 15 (7-18) mg/dL Creatinine 1.0 (0.7-1.3) mg/dL Est Cr Clr Drug Dosing 50.35 mL/min Estimated GFR (MDRD) > 60 (>60) mL/min BUN/Creatinine Ratio 15.0 (14-18) Glucose 105 (83-115) mg/dL POC Glucose 88 (83-110) mg/dL Calcium 7.9 L (8.5-10.1) mg/dL Total Bilirubin 0.4 (0.2-1.0) mg/dL AST 12 L (15-37) U/L ALT 15 L (16-63) U/L Alkaline Phosphatase 57 (46-116) U/L Total Protein 6.4 (6.4-8.2) g/dl Albumin 2.4 L (3.4-5.0) g/dl Globulin 4.0 gm/dL Albumin/Globulin Ratio 0.6 L (1-2) C.difficile [id number] Presumptive negative C. difficile Tox (PCR) Positive H Result Diagrams: 08/05/16 07:15 08/05/16 07:15 *Q Meaningful Use (ADM) - VTE *Q VTE Criteria *Q: - Stroke *Q Stroke Criteria *Q: - AMI *Q AMI Criteria *Q: Problem List Initiated/Reviewed/Updated: Yes Orders Last 24hrs: Active Orders 24 hr Category Date Time Status Activity as Tolerated [RC] QSHIFT Care 08/05/16 01:16 Active Antiembolic Devices [RC] BID Care 08/05/16 00:34 Active Blood Glucose Check, Bedside [RC] QIDACANDBED Care 08/05/16 00:30 Active Oxygen Therapy [RC] ASDIRECTED Care 08/05/16 01:56 Active Vaccines to be Administered [RC] PER UNIT ROUTINE Care 08/05/16 08:05 Active NPO [Nothing Per Oral Diet] [DIET] Diet 08/05/16 Breakfast Active CBC W/O DIFF,HEMOGRAM [HEME] MOTH@0700 Lab 08/07/16 07:00 Ordered CBC W/O DIFF,HEMOGRAM [HEME] MOTH@0700 Lab 08/11/16 07:00 Ordered CBC W/O DIFF,HEMOGRAM [HEME] MOTH@0700 Lab 08/14/16 07:00 Ordered CBC W/O DIFF,HEMOGRAM [HEME] MOTH@0700 Lab 08/18/16 07:00 Ordered CBC W/O DIFF,HEMOGRAM [HEME] MOTH@0700 Lab 08/21/16 07:00 Ordered CBC W/O DIFF,HEMOGRAM [HEME] MOTH@0700 Lab 08/25/16 07:00 Ordered Acetaminophen [Tylenol] Med 08/05/16 00:32 Active 650 mg PO Q6H PRN Dextrose 5%-0.9% NaCl [Dextrose 5%-Normal Saline] 1,000 Med 08/05/16 00:45 Active ml IV ASDIRECTED Dextrose 50% in Water Med 08/05/16 00:30 Active 50 ml IVPUSH ASDIRECTED PRN Enoxaparin [Lovenox] Med 08/05/16 09:00 Active 40 mg SUBCUT DAILY Insulin Aspart [NovoLOG] Med 08/05/16 07:00 Active See Protocol SUBCUT QIDACANDBED Saccharomyces Boulardii [Florastor] Med 08/05/16 09:00 Active 250 mg PO BID Temazepam [Restoril] Med 08/05/16 00:33 Active 7.5 mg PO BEDTIME PRN metroNIDAZOLE/Normal Saline [Flagyl 500 MG in NS 100 ML Med 08/05/16 06:00 Active ] 500 mg Premix Bag 1 bag IV Q8H RIGO Hose [Antiembolic Hose] [OM.PC] Routine Oth 08/05/16 00:34 Ordered Resuscitation Status Routine Resus Stat 08/05/16 01:15 Ordered Medication Orders Acetaminophen (Tylenol) 650 mg PO Q6H PRN PRN Reason: Pain/Fever Dextrose/Water (Dextrose 50% In Water) 50 ml IVPUSH ASDIRECTED PRN PRN Reason: Hypoglycemia Enoxaparin Sodium (Lovenox) 40 mg SUBCUT DAILY [facility] Last Admin: 08/05/16 09:12 Dose: 40 mg Dextrose/Sodium Chloride (Dextrose 5%-Normal Saline) 1,000 mls @ 75 mls/hr IV ASDIRECTED [facility] Last Admin: 08/05/16 06:49 Dose: 75 mls/hr Metronidazole 500 mg/ Premix 100 mls @ 100 mls/hr IV Q8H [facility] Last Admin: 08/05/16 07:25 Dose: 100 mls/hr Insulin Aspart (Novolog) 0 unit SUBCUT QIDACANDBED [facility] PRN Reason: Protocol Last Admin: 08/05/16 06:52 Dose: Not Given Saccharomyces Boulardii (Florastor) 250 mg PO BID [facility] Last Admin: 08/05/16 09:50 Dose: Not Given Temazepam (Restoril) 7.5 mg PO BEDTIME PRN PRN Reason: Insomnia Assessment/Plan Comment:: Impression: Diarrhea with ongoing ATB, screen for C Diff Resume rocephin, previous UTI with indwelling cath, E Coli; has had 14 days of 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
[2016-08-05] MEDS: cefTRIAXone 2 GM in Sodium Chloride 0.9% 100 ML IV SCH (10:42)
[2016-08-05] MEDS: Trospium 20 MG Tab PO SCH (17:49)
[2016-08-05] MEDS: Sodium Chloride 0.45% 1,000 ML IV SCH (21:26)
[2016-08-05] MEDS: OLANZapine 5 MG Tab PO SCH (21:29)
[2016-08-05] MEDS: Potassium Chloride 20 MEQ Tab.ER PO SCH (21:29)
[2016-08-06] MEDS: metroNIDAZOLE/Normal Saline 500 MG in Premix Bag 1 BAG IV SCH ×3 (06:32→21:09)
[2016-08-06] MEDS: Trospium 20 MG Tab PO SCH ×2 (06:34→16:58)
[2016-08-06] MEDS: Insulin Aspart 100 Units/ML 3 ML Pen SUBCUT SCH ×4 (06:34→21:19)
[2016-08-06] MEDS: Aspirin 81 MG Tab.Chew PO SCH (08:44)
[2016-08-06] MEDS: Enoxaparin 40 MG/0.4 ML Syringe SUBCUT SCH (08:44)
[2016-08-06] MEDS: MEMANTINE 14 MG PO SCH (08:45)
[2016-08-06] MEDS: Potassium Chloride 20 MEQ Tab.ER PO SCH ×2 (08:45→21:08)
[2016-08-06] MEDS: Saccharomyces Boulardii (Probiotic) 250 MG Cap PO SCH ×2 (08:45→21:09)
[2016-08-06] MEDS ORDERED: KETOCONAZOLE TOP PRN (09:00)
[2016-08-06] MEDS: cefTRIAXone 2 GM in Sodium Chloride 0.9% 100 ML IV SCH (11:08)
[2016-08-06] MEDS: Sodium Chloride 0.45% 1,000 ML IV SCH (11:09)
--- NOTE | 2016-08-06 11:49 | PCM.PN ---
- General Info Date of Service: 08/06/16 Functional Status: Reports: pain controlled, urinating - Review of Systems General: Reports: Weakness HEENT: Reports: no symptoms Pulmonary: Reports: no symptoms Cardiovascular: Reports: No Symptoms Gastrointestinal: Reports: No symptoms Genitourinary: Reports: no symptoms Musculoskeletal: Reports: no symptoms Neurological: Reports: No Symptoms Psychiatric: Reports: no symptoms - Patient Data Vitals - most recent: Last Vital Signs Temp 36.9 C 08/06/16 08:16 Pulse 79 08/06/16 09:26 Resp 15 08/06/16 08:16 BP 143/73 H 08/06/16 08:16 Pulse Ox 91 L 08/06/16 09:29 Weight - most recent: 129.455 kg I&O - last 24 hours: Intake & Output 08/05/16 08/06/16 08/06/16 22:59 06:59 14:59 Intake Total 1092 847 Output Total 700 400 Balance 392 447 Lab Results last 24 hrs: Laboratory Results - last 24 hr 08/05/16 08/05/16 08/05/16 Range/Units 07:15 17:47 21:25 WBC 22.20 H (4.23-9.07) K/mm3 RBC 4.18 L (4.63-6.08) M/mm3 Hgb 12.5 L (13.7-17.5) gm/L Hct 38.9 L (40.1-51.0) % MCV 93.1 H (79.0-92.2) fl MCH 29.9 (25.7-32.2) pg MCHC 32.1 L (32.2-35.5) g/dl RDW Std Deviation 45.9 H (35.1-43.9) fL Plt Count 242 (163-337) K/mm3 MPV 10.9 (9.4-12.3) fl Neut % (Auto) 83.2 H (34.0-67.9) % Lymph % (Auto) 6.4 L (21.8-53.1) % Dixon % (Auto) 9.9 (5.3-12.2) % Eos % (Auto) 0 L (0.8-7.0) Baso % (Auto) 0.1 (0.1-1.2) % Neut # (Auto) 18.47 H (1.78-5.38) K/mm3 Lymph # (Auto) 1.41 (1.32-3.57) K/mm3 Dixon # (Auto) 2.20 H (0.30-0.82) K/mm3 Eos # (Auto) 0.01 L (0.04-0.54) K/mm3 Baso # (Auto) 0.02 (0.01-0.08) K/mm3 Manual Slide Review Abnormal smear Sodium (136-145) mEq/L Potassium (3.5-5.1) mEq/L Chloride (98-107) mEq/L Carbon Dioxide (21-32) mEq/L Anion Gap (5-15) BUN (7-18) mg/dL Creatinine (0.7-1.3) mg/dL Est Cr Clr Drug Dosing mL/min Estimated GFR (MDRD) (>60) mL/min BUN/Creatinine Ratio (14-18) Glucose (83-115) mg/dL POC Glucose 132 H 136 H (83-110) mg/dL Calcium (8.5-10.1) mg/dL C-Reactive Protein (<1.0) mg/dL 08/06/16 08/06/16 08/06/16 Range/Units 04:35 06:27 11:08 WBC (4.23-9.07) K/mm3 RBC (4.63-6.08) M/mm3 Hgb (13.7-17.5) gm/L Hct (40.1-51.0) % MCV (79.0-92.2) fl MCH (25.7-32.2) pg MCHC (32.2-35.5) g/dl RDW Std Deviation (35.1-43.9) fL Plt Count (163-337) K/mm3 MPV (9.4-12.3) fl Neut % (Auto) (34.0-67.9) % Lymph % (Auto) (21.8-53.1) % Dixon % (Auto) (5.3-12.2) % Eos % (Auto) (0.8-7.0) Baso % (Auto) (0.1-1.2) % Neut # (Auto) (1.78-5.38) K/mm3 Lymph # (Auto) (1.32-3.57) K/mm3 Dixon # (Auto) (0.30-0.82) K/mm3 Eos # (Auto) (0.04-0.54) K/mm3 Baso # (Auto) (0.01-0.08) K/mm3 Manual Slide Review Sodium 143 (136-145) mEq/L Potassium 4.4 (3.5-5.1) mEq/L Chloride 108 H (98-107) mEq/L Carbon Dioxide 24 (21-32) mEq/L Anion Gap 15.4 H (5-15) BUN 18 (7-18) mg/dL Creatinine 1.2 (0.7-1.3) mg/dL Est Cr Clr Drug Dosing 41.96 mL/min Estimated GFR (MDRD) 57 (>60) mL/min BUN/Creatinine Ratio 15.0 (14-18) Glucose 134 H (83-115) mg/dL POC Glucose 136 H 124 H (83-110) mg/dL Calcium 7.9 L (8.5-10.1) mg/dL C-Reactive Protein 22.8 H* (<1.0) mg/dL Med Orders - Current: Current Medications Acetaminophen (Tylenol) 650 mg PO Q6H PRN PRN Reason: Pain/Fever Aspirin (Aspirin) 81 mg PO DAILY [facility] Last Admin: 08/06/16 08:44 Dose: 81 mg Dextrose/Water (Dextrose 50% In Water) 50 ml IVPUSH ASDIRECTED PRN PRN Reason: Hypoglycemia Enoxaparin Sodium (Lovenox) 40 mg SUBCUT DAILY [facility] Last Admin: 08/06/16 08:44 Dose: 40 mg Metronidazole 500 mg/ Premix 100 mls @ 100 mls/hr IV Q8H [facility] Last Admin: 08/06/16 06:32 Dose: 100 mls/hr Sodium Chloride (Sodium Chloride 0.45%) 1,000 mls @ 75 mls/hr IV ASDIRECTED [facility] Last Admin: 08/06/16 11:09 Dose: 75 mls/hr Ceftriaxone Sodium 2 gm/ (Sodium Chloride) 100 mls @ 200 mls/hr IV Q24H [facility] Last Admin: 08/06/16 11:08 Dose: 200 mls/hr Insulin Aspart (Novolog) 0 unit SUBCUT QIDACANDBED [facility] PRN Reason: Protocol Last Admin: 08/06/16 11:08 Dose: Not Given Olanzapine (Zyprexa) 15 mg PO BEDTIME [facility] Last Admin: 08/05/16 21:29 Dose: 15 mg Memantine 14 Mg 0 each PO DAILY [facility] Last Admin: 08/06/16 08:45 Dose: Not Given Ketoconazole 1 (Applic) 0 each TOP DAILY PRN PRN Reason: SKIN COMPLICATIONS Potassium Chloride (Klor-Con M20) 40 meq PO BID [facility] Last Admin: 08/06/16 08:45 Dose: 40 meq Saccharomyces Boulardii (Florastor) 250 mg PO BID [facility] Last Admin: 08/06/16 08:45 Dose: 250 mg Temazepam (Restoril) 7.5 mg PO BEDTIME PRN PRN Reason: Insomnia Trospium (Sanctura) 20 mg PO BIDMEALS [facility] Last Admin: 08/06/16 06:34 Dose: 20 mg Discontinued Medications Diphtheria/Tetanus/Acell Pertussis (Boostrix) 0.5 ml IM .ONCE ONE Stop: 08/05/16 08:06 Enoxaparin Sodium (Lovenox) 30 mg SUBCUT DAILY [facility] Sodium Chloride (Normal Saline) 1,000 mls @ 75 mls/hr IV ASDIRECTED [facility] Last Admin: 08/04/16 21:53 Dose: 75 mls/hr Ceftriaxone Sodium 2 gm/ (Sodium Chloride) 100 mls @ 200 mls/hr IV ONETIME ONE Stop: 08/04/16 22:39 Last Admin: 08/04/16 22:27 Dose: 200 mls/hr Dextrose/Sodium Chloride (Dextrose 5%-Normal Saline) 1,000 mls [facility] Last Admin: 08/05/16 06:49 Dose: 75 mls/hr Iopamidol (Isovue-370 (76%)) 25 ml IVPUSH ONETIME ONE Stop: 08/04/16 22:34 Last Admin: 08/04/16 22:57 Dose: 25 ml Iopamidol (Isovue-370 (76%)) 100 ml IVPUSH ONETIME ONE Stop: 08/04/16 22:34 Last Admin: 08/04/16 22:57 Dose: 100 ml Ondansetron HCl (Zofran) 4 mg IVPUSH ONETIME ONE Stop: 08/04/16 21:02 Last Admin: 08/04/16 21:53 Dose: 4 mg Pantoprazole Sodium (Protonix Iv) 40 mg IVPUSH ONETIME ONE Stop: 08/04/16 21:02 Last Admin: 08/04/16 21:55 Dose: 40 mg - Exam Quality Assessment: urine catheter (suprapubic), DVT prophylaxis General: alert, oriented, no acute distress HEENT: Pupils equal, Pupils reactive, EOMI Neck: supple, trachea midline Lungs: Normal respiratory effort, Decreased breath sounds, Wheezing Cardiovascular: Regular Rate Abdomen: bowel sounds present, soft, no tenderness, no distension (Male) Exam: Deferred Back Exam: normal inspection Extremities: normal pulses Skin: warm Neurological: no new focal deficit Psy/Mental Status: alert, normal affect, normal mood - Problem List Review Problem List Initiated/Reviewed/Updated: Yes - My Orders Last 24 Hours: My Active Orders 08/05/16 11:00 cefTRIAXone [Rocephin] 2 gm Sodium Chloride 0.9% [Normal Saline] 100 ml IV Q24H 08/05/16 17:00 Trospium [Sanctura] 20 mg PO BIDMEALS 08/05/16 21:00 OLANZapine [ZyPREXA] 15 mg PO BEDTIME Potassium Chloride [Klor-Con M20] 40 meq PO BID 08/06/16 09:00 Aspirin 81 mg PO DAILY Patient's Own Medication [Ptom] 0 each PO DAILY Patient's Own Medication [Ptom] 0 each TOP DAILY PRN 08/06/16 11:46 Consult to Occupational Therapy [OT Evaluation and Treatment] [CONS] Routine Consult to Physical Therapy [PT Evaluation and Treatment] [CONS] Routine 08/07/16 05:00 BASIC METABOLIC PANEL,BMP [CHEM] DAILY CRP [C-REACTIVE PROTEIN] [CHEM] DAILY 08/07/16 07:00 CBC W/O DIFF,HEMOGRAM [HEME] MOTH@0700 08/08/16 05:00 BASIC METABOLIC PANEL,BMP [CHEM] DAILY CRP [C-REACTIVE PROTEIN] [CHEM] DAILY 08/11/16 07:00 CBC W/O DIFF,HEMOGRAM [HEME] MOTH@0700 08/14/16 07:00 CBC W/O DIFF,HEMOGRAM [HEME] MOTH@0700 08/18/16 07:00 CBC W/O DIFF,HEMOGRAM [HEME] MOTH@0700 08/21/16 07:00 CBC W/O DIFF,HEMOGRAM [HEME] MOTH@69908/25/16 07:00 CBC W/O DIFF,HEMOGRAM [HEME] MOTH@699 - Plan Plan:: Impression: Diarrhea with ongoing ATB, screen for C Diff, positive by PCR Resume rocephin, previous UTI with indwelling cath, E Coli; has had 14 days of 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
[2016-08-06] MEDS: OLANZapine 5 MG Tab PO SCH (21:09)
[2016-08-07] MEDS ORDERED: Sodium Chloride 0.45% 1,000 ML IV SCH (01:30)
[2016-08-07] MEDS: metroNIDAZOLE/Normal Saline 500 MG in Premix Bag 1 BAG IV SCH (05:56)
[2016-08-07] MEDS: Trospium 20 MG Tab PO SCH ×2 (06:07→17:03)
[2016-08-07] MEDS: Insulin Aspart 100 Units/ML 3 ML Pen SUBCUT SCH ×4 (06:12→21:33)
[2016-08-07] MEDS ORDERED: Sodium Chloride 0.9% 10 ML Syringe FLUSH PRN (06:37)
[2016-08-07] MEDS: Aspirin 81 MG Tab.Chew PO SCH (08:49)
[2016-08-07] MEDS: Saccharomyces Boulardii (Probiotic) 250 MG Cap PO SCH ×2 (08:50→21:21)
[2016-08-07] MEDS: Enoxaparin 40 MG/0.4 ML Syringe SUBCUT SCH (08:50)
[2016-08-07] MEDS: MEMANTINE 14 MG PO SCH (08:59)
[2016-08-07] MEDS: Potassium Chloride 20 MEQ Tab.ER PO SCH ×2 (09:21→21:21)
[2016-08-07] MEDS: cefTRIAXone 2 GM in Sodium Chloride 0.9% 100 ML IV SCH (10:47)
[2016-08-07] MEDS: metroNIDAZOLE 500 MG Tab PO SCH ×2 (13:10→21:21)
--- NOTE | 2016-08-07 13:21 | PCM.PN ---
<Flaquita Restrepo M - Last Filed: 08/07/16 13:13> - General Info Date of Service: 08/07/16 Admission Dx/Problem (Free Text): Admission Diagnosis/Problem Admission Diagnosis/Problem UTI, Urinary tract infection following delivery Dominic is seen this morning resting comfortably in chair, just finished with [employer] treatment. He is nonverbal with me this morning. Does not appear to be in pain/discomfort. Nursing has no overnight concerns. Functional Status: Reports: pain controlled, tolerating diet, urinating ( suprapubic cath). Denies: ambulating (nonambulatory), new symptoms - Review of Systems General: Reports: No Symptoms Pulmonary: Denies: shortness of breath Systems Review Comment:: Difficult/unable to obtain as patient is nonverbal - Patient Data Vitals - most recent: Last Vital Signs Temp 98.1 F 08/07/16 07:48 Pulse 102 H 08/07/16 08:18 Resp 24 H 08/07/16 07:48 BP 111/56 L 08/07/16 09:00 Pulse Ox 93 L 08/07/16 08:18 Weight - most recent: 130.045 kg I&O - last 24 hours: Intake & Output 08/06/16 08/07/16 08/07/16 22:59 06:59 14:59 Intake Total 1210 854 330 Output Total 400 400 Balance 810 454 330 Lab Results last 24 hrs: Laboratory Results - last 24 hr 08/05/16 08/06/16 08/06/16 Range/Units 10:49 16:59 18:26 WBC 16.08 H (4.23-9.07) K/mm3 RBC 4.16 L (4.63-6.08) M/mm3 Hgb 12.2 L (13.7-17.5) gm/L Hct 39.3 L (40.1-51.0) % MCV 94.5 H (79.0-92.2) fl MCH 29.3 (25.7-32.2) pg MCHC 31.0 L (32.2-35.5) g/dl RDW Std Deviation 47.2 H (35.1-43.9) fL Plt Count 230 (163-337) K/mm3 MPV 10.1 (9.4-12.3) fl Neut % (Auto) 81.2 H (34.0-67.9) % Lymph % (Auto) 6.2 L (21.8-53.1) % [place] % (Auto) 11.8 (5.3-12.2) % Eos % (Auto) 0 L (0.8-7.0) Baso % (Auto) 0.1 (0.1-1.2) % Neut # (Auto) 13.06 H (1.78-5.38) K/mm3 Lymph # (Auto) 1.00 L (1.32-3.57) K/mm3 [place] # (Auto) 1.89 H (0.30-0.82) K/mm3 Eos # (Auto) 0.00 L (0.04-0.54) K/mm3 Baso # (Auto) 0.02 (0.01-0.08) K/mm3 Manual Slide Review Abnormal smear Sodium (136-145) mEq/L Potassium (3.5-5.1) mEq/L Chloride (98-107) mEq/L Carbon Dioxide (21-32) mEq/L Anion Gap (5-15) BUN (7-18) mg/dL Creatinine (0.7-1.3) mg/dL Est Cr Clr Drug Dosing mL/min Estimated GFR (MDRD) (>60) mL/min BUN/Creatinine Ratio (14-18) Glucose (83-115) mg/dL POC Glucose 125 H 127 H (83-110) mg/dL Calcium (8.5-10.1) mg/dL C-Reactive Protein (<1.0) mg/dL 08/06/16 08/07/16 08/07/16 Range/Units 21:17 05:56 05:57 WBC (4.23-9.07) K/mm3 RBC (4.63-6.08) M/mm3 Hgb (13.7-17.5) gm/L Hct (40.1-51.0) % MCV (79.0-92.2) fl MCH (25.7-32.2) pg MCHC (32.2-35.5) g/dl RDW Std Deviation (35.1-43.9) fL Plt Count (163-337) K/mm3 MPV (9.4-12.3) fl Neut % (Auto) (34.0-67.9) % Lymph % (Auto) (21.8-53.1) % [place] % (Auto) (5.3-12.2) % Eos % (Auto) (0.8-7.0) Baso % (Auto) (0.1-1.2) % Neut # (Auto) (1.78-5.38) K/mm3 Lymph # (Auto) (1.32-3.57) K/mm3 [place] # (Auto) (0.30-0.82) K/mm3 Eos # (Auto) (0.04-0.54) K/mm3 Baso # (Auto) (0.01-0.08) K/mm3 Manual Slide Review Sodium 142 (136-145) mEq/L Potassium 4.5 (3.5-5.1) mEq/L Chloride 110 H (98-107) mEq/L Carbon Dioxide 24 (21-32) mEq/L Anion Gap 12.5 (5-15) BUN 24 H (7-18) mg/dL Creatinine 1.0 (0.7-1.3) mg/dL Est Cr Clr Drug Dosing 50.35 mL/min Estimated GFR (MDRD) > 60 (>60) mL/min BUN/Creatinine Ratio 24.0 H (14-18) Glucose 128 H (83-115) mg/dL POC Glucose 146 H 111 H (83-110) mg/dL Calcium 8.4 L (8.5-10.1) mg/dL C-Reactive Protein 25.1 H* (<1.0) mg/dL 08/07/16 08/07/16 Range/Units 05:57 10:46 WBC 15.74 H (4.23-9.07) K/mm3 RBC 4.08 L (4.63-6.08) M/mm3 Hgb 12.2 L (13.7-17.5) gm/L Hct 38.6 L (40.1-51.0) % MCV 94.6 H (79.0-92.2) fl MCH 29.9 (25.7-32.2) pg MCHC 31.6 L (32.2-35.5) g/dl RDW Std Deviation 46.9 H (35.1-43.9) fL Plt Count 227 (163-337) K/mm3 MPV 10.6 (9.4-12.3) fl Neut % (Auto) 78.8 H (34.0-67.9) % Lymph % (Auto) 9.3 L (21.8-53.1) % [place] % (Auto) 11.0 (5.3-12.2) % Eos % (Auto) 0.4 L (0.8-7.0) Baso % (Auto) 0.2 (0.1-1.2) % Neut # (Auto) 12.40 H (1.78-5.38) K/mm3 Lymph # (Auto) 1.46 (1.32-3.57) K/mm3 [place] # (Auto) 1.73 H (0.30-0.82) K/mm3 Eos # (Auto) 0.07 (0.04-0.54) K/mm3 Baso # (Auto) 0.03 (0.01-0.08) K/mm3 Manual Slide Review Abnormal smear Sodium (136-145) mEq/L Potassium (3.5-5.1) mEq/L Chloride (98-107) mEq/L Carbon Dioxide (21-32) mEq/L Anion Gap (5-15) BUN (7-18) mg/dL Creatinine (0.7-1.3) mg/dL Est Cr Clr Drug Dosing mL/min Estimated GFR (MDRD) (>60) mL/min BUN/Creatinine Ratio (14-18) Glucose (83-115) mg/dL POC Glucose 151 H (83-110) mg/dL Calcium (8.5-10.1) mg/dL C-Reactive Protein (<1.0) mg/dL Med Orders - Current: Current Medications Acetaminophen (Tylenol) 650 mg PO Q6H PRN PRN Reason: Pain/Fever Aspirin (Aspirin) 81 mg PO DAILY [facility] Last Admin: 08/07/16 08:49 Dose: 81 mg Dextrose/Water (Dextrose 50% In Water) 50 ml IVPUSH ASDIRECTED PRN PRN Reason: Hypoglycemia Enoxaparin Sodium (Lovenox) 40 mg SUBCUT DAILY [facility] Last Admin: 08/07/16 08:50 Dose: 40 mg Ceftriaxone Sodium 2 gm/ (Sodium Chloride) 100 mls @ 200 mls/hr IV Q24H [facility] Last Admin: 08/07/16 10:47 Dose: 200 mls/hr Insulin Aspart (Novolog) 0 unit SUBCUT QIDACANDBED [facility] PRN Reason: Protocol Last Admin: 08/07/16 10:59 Dose: 1 unit Metronidazole (Flagyl) 500 mg PO Q8H [facility] Last Admin: 08/07/16 13:10 Dose: 500 mg Olanzapine (Zyprexa) 15 mg PO BEDTIME [facility] Last Admin: 08/06/16 21:09 Dose: 15 mg Memantine 14 Mg 0 each PO DAILY [facility] Last Admin: 08/07/16 08:59 Dose: Not Given Ketoconazole 1 (Applic) 0 each TOP DAILY PRN PRN Reason: SKIN COMPLICATIONS Potassium Chloride (Klor-Con M20) 40 meq PO BID [facility] Last Admin: 08/07/16 09:21 Dose: 40 meq Saccharomyces Boulardii (Florastor) 250 mg PO BID [facility] Last Admin: 08/07/16 08:50 Dose: 250 mg Sodium Chloride (Saline Flush) 10 ml FLUSH ASDIRECTED PRN PRN Reason: Keep Vein Open Temazepam (Restoril) 7.5 mg PO BEDTIME PRN PRN Reason: Insomnia Trospium (Sanctura) 20 mg PO BIDMEALS [facility] Last Admin: 08/07/16 06:07 Dose: 20 mg Discontinued Medications Diphtheria/Tetanus/Acell Pertussis (Boostrix) 0.5 ml IM .ONCE ONE Stop: 08/05/16 08:06 Enoxaparin Sodium (Lovenox) 30 mg SUBCUT DAILY [facility] Sodium Chloride (Normal Saline) 1,000 mls @ 75 mls/hr IV ASDIRECTED [facility] Last Admin: 08/04/16 21:53 Dose: 75 mls/hr Ceftriaxone Sodium 2 gm/ (Sodium Chloride) 100 mls @ 200 mls/hr IV ONETIME ONE Stop: 08/04/16 22:39 Last Admin: 08/04/16 22:27 Dose: 200 mls/hr Dextrose/Sodium Chloride (Dextrose 5%-Normal Saline) 1,000 mls @ 75 mls/hr IV ASDIRECTED [facility] Last Admin: 08/05/16 06:49 Dose: 75 mls/hr Metronidazole 500 mg/ Premix 100 mls @ 100 mls/hr IV Q8H [facility] Last Admin: 08/07/16 05:56 Dose: 100 mls/hr Sodium Chloride (Sodium Chloride 0.45%) 1,000 mls @ 75 mls/hr IV ASDIRECTED [facility] Last Infusion: 08/06/16 16:36 Dose: 50 mls/hr Sodium Chloride (Sodium Chloride 0.45%) 1,000 mls @ 50 mls/hr IV ASDIRECTED [facility] Iopamidol (Isovue-370 (76%)) 25 ml IVPUSH ONETIME ONE Stop: 08/04/16 22:34 Last Admin: 08/04/16 22:57 Dose: 25 ml Iopamidol (Isovue-370 (76%)) 100 ml IVPUSH ONETIME ONE Stop: 08/04/16 22:34 Last Admin: 08/04/16 22:57 Dose: 100 ml Ondansetron HCl (Zofran) 4 mg IVPUSH ONETIME ONE Stop: 08/04/16 21:02 Last Admin: 08/04/16 21:53 Dose: 4 mg Pantoprazole Sodium (Protonix Iv) 40 mg IVPUSH ONETIME ONE Stop: 08/04/16 21:02 Last Admin: 08/04/16 21:55 Dose: 40 mg - Exam Quality Assessment: DVT prophylaxis General: alert, no acute distress, other (nonverbal) HEENT: Pupils equal Neck: supple Lungs: Clear to auscultation, Decreased breath sounds (mid to lower lobes; patient does not follow commands to take deep breaths) Cardiovascular: Regular Rate, Regular Rhythm, Other (distant) Abdomen: bowel sounds present, soft, no tenderness, no distension (Male) Exam: Deferred Extremities: edema (trace to 1+ to ankles, pedal. Teds bilat) Peripheral Pulses: 1+: dorsalis pedis (L), dorsalis pedis (R) Skin: warm, dry Psy/Mental Status: other (end stage dementia; nonverbal) - Problem List Review Problem List Initiated/Reviewed/Updated: Yes - My Orders Last 24 Hours: My Active Orders 08/07/16 06:37 Sodium Chloride 0.9% [Saline Flush] 10 ml FLUSH ASDIRECTED PRN Convert IV to Saline Lock [OM.PC] Routine - Plan Plan:: Impression: Diarrhea with ongoing ATB, screen for C Diff, positive by PCR--improving diarrhea Resume rocephin, previous UTI with indwelling suprapubic cath E Coli bacteremia and UC with prior hospitalization; has had 14 days of therapy PURLER AMS, increasing lethargy--improving to resolved Baseline Alzheimer dementia, nonverbal Recent Influezna A/B positive--resolved Plan: Flagyl- change from IV to PO today Rocephin IV Supportive care-- WBC responding and is with slight improvements today; cont with current POC Consult PT/OT Consult Speech Path Resume Home meds Aspiration precautions DVT/GI prohylaxis Disposition will be for back to NH once he has rec'd 96 hours of IV therapy for above noted infection. <Nyla Arenas M - Last Filed: 08/07/16 15:52> - Patient Data Vitals - most recent: Last Vital Signs Temp 36.3 C 08/07/16 15:30 Pulse 75 08/07/16 15:34 Resp 20 08/07/16 15:30 BP 128/50 L 08/07/16 15:30 Pulse Ox 95 08/07/16 15:30 I&O - last 24 hours: Intake & Output 08/07/16 08/07/16 08/07/16 06:59 14:59 22:59 Intake Total 858 573 9181 Output Total 400 400 Balance 454 330 820 Lab Results last 24 hrs: Laboratory Results - last 24 hr 08/06/16 08/06/16 08/06/16 Range/Units 16:59 18:26 21:17 WBC 16.08 H (4.23-9.07) K/mm3 RBC 4.16 L (4.63-6.08) M/mm3 Hgb 12.2 L (13.7-17.5) gm/L Hct 39.3 L (40.1-51.0) % MCV 94.5 H (79.0-92.2) fl MCH 29.3 (25.7-32.2) pg MCHC 31.0 L (32.2-35.5) g/dl RDW Std Deviation 47.2 H (35.1-43.9) fL Plt Count 230 (163-337) K/mm3 MPV 10.1 (9.4-12.3) fl Neut % (Auto) 81.2 H (34.0-67.9) % Lymph % (Auto) 6.2 L (21.8-53.1) % [place] % (Auto) 11.8 (5.3-12.2) % Eos % (Auto) 0 L (0.8-7.0) Baso % (Auto) 0.1 (0.1-1.2) % Neut # (Auto) 13.06 H (1.78-5.38) K/mm3 Lymph # (Auto) 1.00 L (1.32-3.57) K/mm3 [place] # (Auto) 1.89 H (0.30-0.82) K/mm3 Eos # (Auto) 0.00 L (0.04-0.54) K/mm3 Baso # (Auto) 0.02 (0.01-0.08) K/mm3 Manual Slide Review Abnormal smear Sodium (136-145) mEq/L Potassium (3.5-5.1) mEq/L Chloride (98-107) mEq/L Carbon Dioxide (21-32) mEq/L Anion Gap (5-15) BUN (7-18) mg/dL Creatinine (0.7-1.3) mg/dL Est Cr Clr Drug Dosing mL/min Estimated GFR (MDRD) (>60) mL/min BUN/Creatinine Ratio (14-18) Glucose (83-115) mg/dL POC Glucose 127 H 146 H (83-110) mg/dL Calcium (8.5-10.1) mg/dL C-Reactive Protein (<1.0) mg/dL 08/07/16 08/07/16 08/07/16 Range/Units 05:56 05:57 05:57 WBC 15.74 H (4.23-9.07) K/mm3 RBC 4.08 L (4.63-6.08) M/mm3 Hgb 12.2 L (13.7-17.5) gm/L Hct 38.6 L (40.1-51.0) % MCV 94.6 H (79.0-92.2) fl MCH 29.9 (25.7-32.2) pg MCHC 31.6 L (32.2-35.5) g/dl RDW Std Deviation 46.9 H (35.1-43.9) fL Plt Count 227 (163-337) K/mm3 MPV 10.6 (9.4-12.3) fl Neut % (Auto) 78.8 H (34.0-67.9) % Lymph % (Auto) 9.3 L (21.8-53.1) % [place] % (Auto) 11.0 (5.3-12.2) % Eos % (Auto) 0.4 L (0.8-7.0) Baso % (Auto) 0.2 (0.1-1.2) % Neut # (Auto) 12.40 H (1.78-5.38) K/mm3 Lymph # (Auto) 1.46 (1.32-3.57) K/mm3 [place] # (Auto) 1.73 H (0.30-0.82) K/mm3 Eos # (Auto) 0.07 (0.04-0.54) K/mm3 Baso # (Auto) 0.03 (0.01-0.08) K/mm3 Manual Slide Review Abnormal smear Sodium 142 (136-145) mEq/L Potassium 4.5 (3.5-5.1) mEq/L Chloride 110 H (98-107) mEq/L Carbon Dioxide 24 (21-32) mEq/L Anion Gap 12.5 (5-15) BUN 24 H (7-18) mg/dL Creatinine 1.0 (0.7-1.3) mg/dL Est Cr Clr Drug Dosing 50.35 mL/min Estimated GFR (MDRD) > 60 (>60) mL/min BUN/Creatinine Ratio 24.0 H (14-18) Glucose 128 H (83-115) mg/dL POC Glucose 111 H (83-110) mg/dL Calcium 8.4 L (8.5-10.1) mg/dL C-Reactive Protein 25.1 H* (<1.0) mg/dL 08/07/16 Range/Units 10:46 WBC (4.23-9.07) K/mm3 RBC (4.63-6.08) M/mm3 Hgb (13.7-17.5) gm/L Hct (40.1-51.0) % MCV (79.0-92.2) fl MCH (25.7-32.2) pg MCHC (32.2-35.5) g/dl RDW Std Deviation (35.1-43.9) fL Plt Count (163-337) K/mm3 MPV (9.4-12.3) fl Neut % (Auto) (34.0-67.9) % Lymph % (Auto) (21.8-53.1) % [place] % (Auto) (5.3-12.2) % Eos % (Auto) (0.8-7.0) Baso % (Auto) (0.1-1.2) % Neut # (Auto) (1.78-5.38) K/mm3 Lymph # (Auto) (1.32-3.57) K/mm3 [place] # (Auto) (0.30-0.82) K/mm3 Eos # (Auto) (0.04-0.54) K/mm3 Baso # (Auto) (0.01-0.08) K/mm3 Manual Slide Review Sodium (136-145) mEq/L Potassium (3.5-5.1) mEq/L Chloride (98-107) mEq/L Carbon Dioxide (21-32) mEq/L Anion Gap (5-15) BUN (7-18) mg/dL Creatinine (0.7-1.3) mg/dL Est Cr Clr Drug Dosing mL/min Estimated GFR (MDRD) (>60) mL/min BUN/Creatinine Ratio (14-18) Glucose (83-115) mg/dL POC Glucose 151 H (83-110) mg/dL Calcium (8.5-10.1) mg/dL C-Reactive Protein (<1.0) mg/dL Med Orders - Current: Current Medications Acetaminophen (Tylenol) 650 mg PO Q6H PRN PRN Reason: Pain/Fever Aspirin (Aspirin) 81 mg PO DAILY [facility] Last Admin: 08/07/16 08:49 Dose: 81 mg Dextrose/Water (Dextrose 50% In Water) 50 ml IVPUSH ASDIRECTED PRN PRN Reason: Hypoglycemia Enoxaparin Sodium (Lovenox) 40 mg SUBCUT DAILY [facility] Last Admin: 08/07/16 08:50 Dose: 40 mg Ceftriaxone Sodium 2 gm/ (Sodium Chloride) 100 mls @ 200 mls/hr IV Q24H [facility] Last Admin: 08/07/16 10:47 Dose: 200 mls/hr Insulin Aspart (Novolog) 0 unit SUBCUT QIDACANDBED [facility] PRN Reason: Protocol Last Admin: 08/07/16 10:59 Dose: 1 unit Metronidazole (Flagyl) 500 mg PO Q8H [facility] Last Admin: 08/07/16 13:10 Dose: 500 mg Olanzapine (Zyprexa) 15 mg PO BEDTIME [facility] Last Admin: 08/06/16 21:09 Dose: 15 mg Memantine 14 Mg 0 each PO DAILY [facility] Last Admin: 08/07/16 08:59 Dose: Not Given Ketoconazole 1 (Applic) 0 each TOP DAILY PRN PRN Reason: SKIN COMPLICATIONS Potassium Chloride (Klor-Con M20) 40 meq PO BID [facility] Last Admin: 08/07/16 09:21 Dose: 40 meq Saccharomyces Boulardii (Florastor) 250 mg PO BID [facility] Last Admin: 08/07/16 08:50 Dose: 250 mg Sodium Chloride (Saline Flush) 10 ml FLUSH ASDIRECTED PRN PRN Reason: Keep Vein Open Temazepam (Restoril) 7.5 mg PO BEDTIME PRN PRN Reason: Insomnia Trospium (Sanctura) 20 mg PO BIDMEALS [facility] Last Admin: 08/07/16 06:07 Dose: 20 mg Discontinued Medications Diphtheria/Tetanus/Acell Pertussis (Boostrix) 0.5 ml IM .ONCE ONE Stop: 08/05/16 08:06 Enoxaparin Sodium (Lovenox) 30 mg SUBCUT DAILY [facility] Sodium Chloride (Normal Saline) 1,000 mls @ 75 mls/hr IV ASDIRECTED [facility] Last Admin: 08/04/16 21:53 Dose: 75 mls/hr Ceftriaxone Sodium 2 gm/ (Sodium Chloride) 100 mls @ 200 mls/hr IV ONETIME ONE Stop: 08/04/16 22:39 Last Admin: 08/04/16 22:27 Dose: 200 mls/hr Dextrose/Sodium Chloride (Dextrose 5%-Normal Saline) 1,000 mls @ 75 mls/hr IV ASDIRECTED [facility] Last Admin: 08/05/16 06:49 Dose: 75 mls/hr Metronidazole 500 mg/ Premix 100 mls @ 100 mls/hr IV Q8H [facility] Last Admin: 08/07/16 05:56 Dose: 100 mls/hr Sodium Chloride (Sodium Chloride 0.45%) 1,000 mls @ 75 mls/hr IV ASDIRECTED [facility] Last Infusion: 04/12/17 16:36 Dose: 50 mls/hr Sodium Chloride (Sodium Chloride 0.45%) 1,000 mls @ 50 mls/hr IV ASDIRECTED [facility] Iopamidol (Isovue-370 (76%)) 25 ml IVPUSH ONETIME ONE Stop: 08/04/16 22:34 Last Admin: 08/04/16 22:57 Dose: 25 ml Iopamidol (Isovue-370 (76%)) 100 ml IVPUSH ONETIME ONE Stop: 08/04/16 22:34 Last Admin: 08/04/16 22:57 Dose: 100 ml Ondansetron HCl (Zofran) 4 mg IVPUSH ONETIME ONE Stop: 08/04/16 21:02 Last Admin: 08/04/16 21:53 Dose: 4 mg Pantoprazole Sodium (Protonix Iv) 40 mg IVPUSH ONETIME ONE Stop: 08/04/16 21:02 Last Admin: 08/04/16 21:55 Dose: 40 mg - My Orders Last 24 Hours: My Active Orders 08/07/16 14:00 metroNIDAZOLE [Flagyl] 500 mg PO Q8H 08/07/16 Lunch [employer] Dysphagia Diet [DIET] 08/08/16 05:00 BASIC METABOLIC PANEL,BMP [CHEM] DAILY CBC WITH AUTO DIFF [HEME] DAILY CRP [C-REACTIVE PROTEIN] [CHEM] DAILY 08/09/16 05:00 CBC WITH AUTO DIFF [HEME] DAILY - Plan Plan:: LOS will be greater than 96 hours, will return to previous NH
[2016-08-07] MEDS: OLANZapine 5 MG Tab PO SCH (21:21)
[2016-08-08] MEDS: metroNIDAZOLE 500 MG Tab PO SCH ×3 (06:24→21:55)
[2016-08-08] MEDS: Trospium 20 MG Tab PO SCH ×2 (06:24→18:01)
[2016-08-08] MEDS: Insulin Aspart 100 Units/ML 3 ML Pen SUBCUT SCH ×4 (06:30→21:55)
[2016-08-08] MEDS: Aspirin 81 MG Tab.Chew PO SCH (08:03)
[2016-08-08] MEDS: Saccharomyces Boulardii (Probiotic) 250 MG Cap PO SCH ×2 (08:03→21:53)
[2016-08-08] MEDS: Potassium Chloride 20 MEQ Tab.ER PO SCH ×2 (08:04→21:53)
[2016-08-08] MEDS: Enoxaparin 40 MG/0.4 ML Syringe SUBCUT SCH (08:05)
--- NOTE | 2016-08-08 08:26 | PCM.PN ---
Addendum entered and electronically signed by Flaquita Restrepo PA-C 11:52: Patient allergic to levaquin; will change levaquin to meropenem. Original Note: <Flaquita Restrepo - Last Filed: 08/08/16 10:29> - General Info Date of Service: 08/08/16 Admission Dx/Problem (Free Text): Admission Diagnosis/Problem Admission Diagnosis/Problem UTI, Urinary tract infection following delivery Dominic is seen this morning resting comfortably in chair. He is nonverbal with me this morning. Does not appear to be in pain/discomfort. Nursing has no overnight concerns. 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) - Patient Data Vitals - most recent: Last Vital Signs Temp 97.2 F 08/08/16 03:24 Pulse 71 08/08/16 03:24 Resp 20 08/08/16 03:24 BP 130/70 08/08/16 03:24 Pulse Ox 93 L 08/08/16 03:24 Weight - most recent: 131.769 kg I&O - last 24 hours: Intake & Output 08/07/16 08/08/16 08/08/16 22:59 06:59 14:59 Intake Total 1520 500 Output Total 400 350 Balance 1120 150 Lab Results last 24 hrs: Laboratory Results - last 24 hr 08/07/16 08/07/16 08/07/16 Range/Units 10:46 17:02 21:20 WBC (4.23-9.07) K/mm3 RBC (4.63-6.08) M/mm3 Hgb (13.7-17.5) gm/L Hct (40.1-51.0) % MCV (79.0-92.2) fl MCH (25.7-32.2) pg MCHC (32.2-35.5) g/dl RDW Std Deviation (35.1-43.9) fL Plt Count (163-337) K/mm3 MPV (9.4-12.3) fl Neut % (Auto) (34.0-67.9) % Lymph % (Auto) (21.8-53.1) % [place] % (Auto) (5.3-12.2) % Eos % (Auto) (0.8-7.0) Baso % (Auto) (0.1-1.2) % Neut # (Auto) (1.78-5.38) K/mm3 Lymph # (Auto) (1.32-3.57) K/mm3 [place] # (Auto) (0.30-0.82) K/mm3 Eos # (Auto) (0.04-0.54) K/mm3 Baso # (Auto) (0.01-0.08) K/mm3 Manual Slide Review Sodium (136-145) mEq/L Potassium (3.5-5.1) mEq/L Chloride (98-107) mEq/L Carbon Dioxide (21-32) mEq/L Anion Gap (5-15) BUN (7-18) mg/dL Creatinine (0.7-1.3) mg/dL Est Cr Clr Drug Dosing mL/min Estimated GFR (MDRD) (>60) mL/min BUN/Creatinine Ratio (14-18) Glucose (83-115) mg/dL POC Glucose 151 H 129 H 194 H (83-110) mg/dL Calcium (8.5-10.1) mg/dL C-Reactive Protein (<1.0) mg/dL 08/08/16 08/08/16 08/08/16 Range/Units 06:00 06:00 06:29 WBC 15.44 H (4.23-9.07) K/mm3 RBC 4.36 L (4.63-6.08) M/mm3 Hgb 12.9 L (13.7-17.5) gm/L Hct 41.1 (40.1-51.0) % MCV 94.3 H (79.0-92.2) fl MCH 29.6 (25.7-32.2) pg MCHC 31.4 L (32.2-35.5) g/dl RDW Std Deviation 46.7 H (35.1-43.9) fL Plt Count 213 (163-337) K/mm3 MPV 10.4 (9.4-12.3) fl Neut % (Auto) 73.7 H (34.0-67.9) % Lymph % (Auto) 12.2 L (21.8-53.1) % [place] % (Auto) 10.0 (5.3-12.2) % Eos % (Auto) 3.2 (0.8-7.0) Baso % (Auto) 0.2 (0.1-1.2) % Neut # (Auto) 11.37 H (1.78-5.38) K/mm3 Lymph # (Auto) 1.89 (1.32-3.57) K/mm3 [place] # (Auto) 1.55 H (0.30-0.82) K/mm3 Eos # (Auto) 0.49 (0.04-0.54) K/mm3 Baso # (Auto) 0.03 (0.01-0.08) K/mm3 Manual Slide Review Normal smear Sodium 142 (136-145) mEq/L Potassium 4.2 (3.5-5.1) mEq/L Chloride 110 H (98-107) mEq/L Carbon Dioxide 25 (21-32) mEq/L Anion Gap 11.2 (5-15) BUN 20 H (7-18) mg/dL Creatinine 0.8 (0.7-1.3) mg/dL Est Cr Clr Drug Dosing 62.94 mL/min Estimated GFR (MDRD) > 60 (>60) mL/min BUN/Creatinine Ratio 25.0 H (14-18) Glucose 118 H (83-115) mg/dL POC Glucose 117 H (83-110) mg/dL Calcium 8.1 L (8.5-10.1) mg/dL C-Reactive Protein 18.3 H* (<1.0) mg/dL Med Orders - Current: Current Medications Acetaminophen (Tylenol) 650 mg PO Q6H PRN PRN Reason: Pain/Fever Aspirin (Aspirin) 81 mg PO DAILY [facility] Last Admin: 08/08/16 08:03 Dose: 81 mg Dextrose/Water (Dextrose 50% In Water) 50 ml IVPUSH ASDIRECTED PRN PRN Reason: Hypoglycemia Enoxaparin Sodium (Lovenox) 40 mg SUBCUT DAILY [facility] Last Admin: 08/08/16 08:05 Dose: 40 mg Ceftriaxone Sodium 2 gm/ (Sodium Chloride) 100 mls @ 200 mls/hr IV Q24H [facility] Last Admin: 08/07/16 10:47 Dose: 200 mls/hr Insulin Aspart (Novolog) 0 unit SUBCUT QIDACANDBED [facility] PRN Reason: Protocol Last Admin: 08/08/16 06:30 Dose: Not Given Metronidazole (Flagyl) 500 mg PO Q8H [facility] Last Admin: 08/08/16 06:24 Dose: 500 mg Olanzapine (Zyprexa) 15 mg PO BEDTIME [facility] Last Admin: 08/07/16 21:21 Dose: 15 mg Memantine 14 Mg 0 each PO DAILY [facility] Last Admin: 08/07/16 08:59 Dose: Not Given Ketoconazole 1 (Applic) 0 each TOP DAILY PRN PRN Reason: SKIN COMPLICATIONS Potassium Chloride (Klor-Con M20) 40 meq PO BID [facility] Last Admin: 08/08/16 08:04 Dose: 40 meq Saccharomyces Boulardii (Florastor) 250 mg PO BID [facility] Last Admin: 08/08/16 08:03 Dose: 250 mg Sodium Chloride (Saline Flush) 10 ml FLUSH ASDIRECTED PRN PRN Reason: Keep Vein Open Temazepam (Restoril) 7.5 mg PO BEDTIME PRN PRN Reason: Insomnia Trospium (Sanctura) 20 mg PO BIDMEALS [facility] Last Admin: 08/08/16 06:24 Dose: 20 mg Discontinued Medications Diphtheria/Tetanus/Acell Pertussis (Boostrix) 0.5 ml IM .ONCE ONE Stop: 08/05/16 08:06 Enoxaparin Sodium (Lovenox) 30 mg SUBCUT DAILY [facility] Sodium Chloride (Normal Saline) 1,000 mls @ 75 mls/hr IV ASDIRECTED [facility] Last Admin: 08/04/16 21:53 Dose: 75 mls/hr Ceftriaxone Sodium 2 gm/ (Sodium Chloride) 100 mls @ 200 mls/hr IV ONETIME ONE Stop: 08/04/16 22:39 Last Admin: 08/04/16 22:27 Dose: 200 mls/hr Dextrose/Sodium Chloride (Dextrose 5%-Normal Saline) 1,000 mls @ 75 mls/hr IV ASDIRECTED [facility] Last Admin: 08/05/16 06:49 Dose: 75 mls/hr Metronidazole 500 mg/ Premix 100 mls @ 100 mls/hr IV Q8H [facility] Last Admin: 08/07/16 05:56 Dose: 100 mls/hr Sodium Chloride (Sodium Chloride 0.45%) 1,000 mls @ 75 mls/hr IV ASDIRECTED [facility] Last Infusion: 08/06/16 16:36 Dose: 50 mls/hr Sodium Chloride (Sodium Chloride 0.45%) 1,000 mls @ 50 mls/hr IV ASDIRECTED [facility] Iopamidol (Isovue-370 (76%)) 25 ml IVPUSH ONETIME ONE Stop: 08/04/16 22:34 Last Admin: 08/04/16 22:57 Dose: 25 ml Iopamidol (Isovue-370 (76%)) 100 ml IVPUSH ONETIME ONE Stop: 08/04/16 22:34 Last Admin: 08/04/16 22:57 Dose: 100 ml Ondansetron HCl (Zofran) 4 mg IVPUSH ONETIME ONE Stop: 08/04/16 21:02 Last Admin: 08/04/16 21:53 Dose: 4 mg Pantoprazole Sodium (Protonix Iv) 40 mg IVPUSH ONETIME ONE Stop: 08/04/16 21:02 Last Admin: 08/04/16 21:55 Dose: 40 mg - Exam Quality Assessment: DVT prophylaxis General: no acute distress HEENT: Pupils equal Neck: supple Lungs: Normal respiratory effort, Decreased breath sounds (to mid and bases; unable to take deep breaths as unable to respond to commands due to dementia) Cardiovascular: Regular Rate, Regular Rhythm, Other (distant heart tones) Abdomen: bowel sounds present, soft, no tenderness (Male) Exam: Deferred, Other (suprapubic cath site, dressing CDI, without s/ s of infection) Extremities: edema (trace to 1+ to ankles; teds bilat) Peripheral Pulses: 1+: dorsalis pedis (L), dorsalis pedis (R) Skin: warm, dry Psy/Mental Status: other (nonverbal and nonresponsive to me today due to end stage dementia; resting comfortably) - Problem List Review Problem List Initiated/Reviewed/Updated: Yes - Plan Plan:: Impression: Diarrhea with ongoing ATB, screen for C Diff, positive by PCR--improving diarrhea -UTI with minimal response; WBC still 15K today; will change rocephin to levaquin 750mg - previous UTI with indwelling suprapubic cath -E Coli bacteremia and UC with prior hospitalization; has had 14 days of therapy [facility] AMS, increasing lethargy--improving to resolved -Baseline Alzheimer dementia, nonverbal Recent Influezna A/B positive--resolved Plan: Flagyl- change from IV to PO Rocephin IV-- will be dc'd and change to levaquin Supportive care-- WBC responding and is with slight improvements, CRP with improvements; cont with current POC Consult PT/OT Consult Speech Path- will cont to work with patient until discharge Resume Home meds Aspiration precautions DVT/GI prohylaxis Disposition will be for back to NH once he has rec'd 96 hours of IV therapy for above noted infection. LOS will be greater than 96 hours, will return to previous NH <Nyla Arenas - Last Filed: 08/08/16 15:27> - Patient Data Vitals - most recent: Last Vital Signs Temp 36.7 C 08/08/16 08:23 Pulse 87 08/08/16 08:23 Resp 26 H 08/08/16 08:23 BP 134/73 08/08/16 08:23 Pulse Ox 95 08/08/16 08:23 I&O - last 24 hours: Intake & Output 08/08/16 08/08/16 08/08/16 06:59 14:59 22:59 Intake Total 500 360 Output Total 350 Balance 150 360 Lab Results last 24 hrs: Laboratory Results - last 24 hr 08/07/16 08/07/16 08/08/16 Range/Units 17:02 21:20 06:00 WBC (4.23-9.07) K/mm3 RBC (4.63-6.08) M/mm3 Hgb (13.7-17.5) gm/L Hct (40.1-51.0) % MCV (79.0-92.2) fl MCH (25.7-32.2) pg MCHC (32.2-35.5) g/dl RDW Std Deviation (35.1-43.9) fL Plt Count (163-337) K/mm3 MPV (9.4-12.3) fl Neut % (Auto) (34.0-67.9) % Lymph % (Auto) (21.8-53.1) % [place] % (Auto) (5.3-12.2) % Eos % (Auto) (0.8-7.0) Baso % (Auto) (0.1-1.2) % Neut # (Auto) (1.78-5.38) K/mm3 Lymph # (Auto) (1.32-3.57) K/mm3 [place] # (Auto) (0.30-0.82) K/mm3 Eos # (Auto) (0.04-0.54) K/mm3 Baso # (Auto) (0.01-0.08) K/mm3 Manual Slide Review Sodium 142 (136-145) mEq/L Potassium 4.2 (3.5-5.1) mEq/L Chloride 110 H (98-107) mEq/L Carbon Dioxide 25 (21-32) mEq/L Anion Gap 11.2 (5-15) BUN 20 H (7-18) mg/dL Creatinine 0.8 (0.7-1.3) mg/dL Est Cr Clr Drug Dosing 62.94 mL/min Estimated GFR (MDRD) > 60 (>60) mL/min BUN/Creatinine Ratio 25.0 H (14-18) Glucose 118 H (83-115) mg/dL POC Glucose 129 H 194 H (83-110) mg/dL Calcium 8.1 L (8.5-10.1) mg/dL C-Reactive Protein 18.3 H* (<1.0) mg/dL 08/08/16 08/08/16 08/08/16 Range/Units 06:00 06:29 10:53 WBC 15.44 H (4.23-9.07) K/mm3 RBC 4.36 L (4.63-6.08) M/mm3 Hgb 12.9 L (13.7-17.5) gm/L Hct 41.1 (40.1-51.0) % MCV 94.3 H (79.0-92.2) fl MCH 29.6 (25.7-32.2) pg MCHC 31.4 L (32.2-35.5) g/dl RDW Std Deviation 46.7 H (35.1-43.9) fL Plt Count 213 (163-337) K/mm3 MPV 10.4 (9.4-12.3) fl Neut % (Auto) 73.7 H (34.0-67.9) % Lymph % (Auto) 12.2 L (21.8-53.1) % [place] % (Auto) 10.0 (5.3-12.2) % Eos % (Auto) 3.2 (0.8-7.0) Baso % (Auto) 0.2 (0.1-1.2) % Neut # (Auto) 11.37 H (1.78-5.38) K/mm3 Lymph # (Auto) 1.89 (1.32-3.57) K/mm3 [place] # (Auto) 1.55 H (0.30-0.82) K/mm3 Eos # (Auto) 0.49 (0.04-0.54) K/mm3 Baso # (Auto) 0.03 (0.01-0.08) K/mm3 Manual Slide Review Normal smear Sodium (136-145) mEq/L Potassium (3.5-5.1) mEq/L Chloride (98-107) mEq/L Carbon Dioxide (21-32) mEq/L Anion Gap (5-15) BUN (7-18) mg/dL Creatinine (0.7-1.3) mg/dL Est Cr Clr Drug Dosing mL/min Estimated GFR (MDRD) (>60) mL/min BUN/Creatinine Ratio (14-18) Glucose (83-115) mg/dL POC Glucose 117 H 131 H (83-110) mg/dL Calcium (8.5-10.1) mg/dL C-Reactive Protein (<1.0) mg/dL Med Orders - Current: Current Medications Acetaminophen (Tylenol) 650 mg PO Q6H PRN PRN Reason: Pain/Fever Aspirin (Aspirin) 81 mg PO DAILY [facility] Last Admin: 08/08/16 08:03 Dose: 81 mg Dextrose/Water (Dextrose 50% In Water) 50 ml IVPUSH ASDIRECTED PRN PRN Reason: Hypoglycemia Enoxaparin Sodium (Lovenox) 40 mg SUBCUT DAILY [facility] Last Admin: 08/08/16 08:05 Dose: 40 mg Sodium Chloride (Normal Saline) 1,000 mls @ 75 mls/hr IV ASDIRECTED [facility] Stop: 08/09/16 00:01 Meropenem 500 mg/ Sodium (Chloride) 100 mls @ 200 mls/hr IV Q6H [facility] Insulin Aspart (Novolog) 0 unit SUBCUT QIDACANDBED [facility] PRN Reason: Protocol Last Admin: 08/08/16 10:55 Dose: Not Given Metronidazole (Flagyl) 500 mg PO Q8H [facility] Last Admin: 08/08/16 14:49 Dose: 500 mg Olanzapine (Zyprexa) 15 mg PO BEDTIME [facility] Last Admin: 08/07/16 21:21 Dose: 15 mg Memantine 14 Mg 0 each PO DAILY [facility] Last Admin: 08/08/16 08:41 Dose: Not Given Ketoconazole 1 (Applic) 0 each TOP DAILY PRN PRN Reason: SKIN COMPLICATIONS Potassium Chloride (Klor-Con M20) 40 meq PO BID [facility] Last Admin: 08/08/16 08:04 Dose: 40 meq Saccharomyces Boulardii (Florastor) 250 mg PO BID [facility] Last Admin: 08/08/16 08:03 Dose: 250 mg Sodium Chloride (Saline Flush) 10 ml FLUSH ASDIRECTED PRN PRN Reason: Keep Vein Open Temazepam (Restoril) 7.5 mg PO BEDTIME PRN PRN Reason: Insomnia Trospium (Sanctura) 20 mg PO BIDMEALS [facility] Last Admin: 08/08/16 06:24 Dose: 20 mg Discontinued Medications Diphtheria/Tetanus/Acell Pertussis (Boostrix) 0.5 ml IM .ONCE ONE Stop: 08/05/16 08:06 Enoxaparin Sodium (Lovenox) 30 mg SUBCUT DAILY [facility] Sodium Chloride (Normal Saline) 1,000 mls @ 75 mls/hr IV ASDIRECTED [facility] Last Admin: 08/04/16 21:53 Dose: 75 mls/hr Ceftriaxone Sodium 2 gm/ (Sodium Chloride) 100 mls @ 200 mls/hr IV ONETIME ONE Stop: 08/04/16 22:39 Last Admin: 08/04/16 22:27 Dose: 200 mls/hr Dextrose/Sodium Chloride (Dextrose 5%-Normal Saline) 1,000 mls @ 75 mls/hr IV ASDIRECTED [facility] Last Admin: 08/05/16 06:49 Dose: 75 mls/hr Metronidazole 500 mg/ Premix 100 mls @ 100 mls/hr IV Q8H [facility] Last Admin: 08/07/16 05:56 Dose: 100 mls/hr Sodium Chloride (Sodium Chloride 0.45%) 1,000 mls @ 75 mls/hr IV ASDIRECTED [facility] Last Infusion: 08/06/16 16:36 Dose: 50 mls/hr Ceftriaxone Sodium 2 gm/ (Sodium Chloride) 100 mls @ 200 mls/hr IV Q24H [facility] Last Admin: 08/07/16 10:47 Dose: 200 mls/hr Sodium Chloride (Sodium Chloride 0.45%) 1,000 mls @ 50 mls/hr IV ASDIRECTED [facility] Levofloxacin/Dextrose 750 mg/ (Premix) 150 mls @ 100 mls/hr IV Q24H [facility] Last Admin: 08/08/16 11:50 Dose: Not Given Meropenem 1 gm/ Sodium (Chloride) 100 mls @ 200 mls/hr IV Q8H [facility] Last Admin: 08/08/16 12:14 Dose: 200 mls/hr Iopamidol (Isovue-370 (76%)) 25 ml IVPUSH ONETIME ONE Stop: 08/04/16 22:34 Last Admin: 08/04/16 22:57 Dose: 25 ml Iopamidol (Isovue-370 (76%)) 100 ml IVPUSH ONETIME ONE Stop: 08/04/16 22:34 Last Admin: 08/04/16 22:57 Dose: 100 ml Ondansetron HCl (Zofran) 4 mg IVPUSH ONETIME ONE Stop: 08/04/16 21:02 Last Admin: 08/04/16 21:53 Dose: 4 mg Pantoprazole Sodium (Protonix Iv) 40 mg IVPUSH ONETIME ONE Stop: 08/04/16 21:02 Last Admin: 08/04/16 21:55 Dose: 40 mg - My Orders Last 24 Hours: My Active Orders 08/09/16 05:00 CBC WITH AUTO DIFF [HEME] DAILY - Plan Plan:: LOS>96 hours for treatment; dietary changes to avoid untoward events will be highlighted at DC.
[2016-08-08] MEDS: MEMANTINE 14 MG PO SCH (08:41)
[2016-08-08] MEDS: Levofloxacin/Dextrose 5%-Water 750 MG in Premix Bag 1 BAG IV SCH ×2 (10:55→11:50)
[2016-08-08] MEDS ORDERED: Meropenem 1 GM in Sodium Chloride 0.9% 100 ML IV SCH (12:00)
[2016-08-08] MEDS ORDERED: Sodium Chloride 0.9% 1,000 ML IV SCH (12:00)
--- NOTE | 2016-08-08 12:04 | PCM.DCSUM1 ---
Discharge Summary - Hospital Course Free Text/Narrative:: 86 year old NH patient recently discharged for UTI, has indwelling suprapubic catheter presents with a fever and change in mental status. The patient's baseline is Alzheimer's dementia, he is nonverbal. He was [facility] at [facility]-07/28/16; during that time frame including discharge, the patient received a total of 14 days of antibiotics. He was discharged on Keflex, the E Coli was musa sensitive. He has had multiple loose stools; he will be treated for AUTI as well as evaluated for C Diff. - Discharge Data Discharge Disposition: Home, Self-Care 01 Condition: Good - Patient Summary/Data Operative Procedure(s) Performed: None Complications: None Consults: Consultations 08/06/16 11:46 Consult to Occupational Therapy [OT Evaluation and Treatment] [CONS] Routine Consult to Physical Therapy [PT Evaluation and Treatment] [CONS] Routine 08/06/16 11:53 Consult to Speech Language Pathology [[employer] Evaluation and Treatment] [CONS] Routine Labs Pending at D/C: None Recommended Follow-up Testing/Procedures: Strongly Recommend: -One on one for meal time; alternate liquids with solids, thin liquids, ground or national dysphagia diet level 2 Planned Operative Procedure(s) after DC: None Hospital Course: As above - Patient Instructions Activity: As Tolerated Driving: Do Not Drive Showering/Bathing: May Shower Notify Provider of: Fever, Increased Pain, Swelling and Redness, Nausea and/or Vomiting - Discharge Plan Home Medications: Home Meds Acetaminophen [Acetaminophen 8 Hour] 650 mg PO BID 01/03/16 [History] Camphor/Menthol [Sarna Lotion] 1 applic TOP BID 01/03/16 [History] Ketoconazole [Nizoral 2% Crm] 1 applic TOP DAILY PRN 01/03/16 [History] Memantine [Namenda Xr] 14 mg PO DAILY 01/03/16 [History] OLANZapine [Zyprexa] 15 mg PO BEDTIME 01/03/16 [History] Polyethylene Glycol 3350 [MiraLAX] 17 gm PO DAILY 01/03/16 [History] Trospium Chloride 20 mg PO BIDMEALS 01/03/16 [History] Insulin Aspart [NovoLOG] 2 units SQ 1700 07/22/16 [History] Insulin Detemir [Levemir] 20 units SQ QAM 07/22/16 [History] Aspirin 81 mg PO DAILY 07/23/16 [History] Bisacodyl [Dulcolax] 10 mg RECTAL DAILY PRN 07/23/16 [History] Cranberry Extract [Cranberry] 405 mg PO BID 07/23/16 [History] Sennosides 17.2 mg PO DAILY PRN 07/23/16 [History] Zinc Oxide 1 applic TOP DAILY PRN 07/23/16 [History] Furosemide [Lasix] 40 mg PO DAILY #30 tablet 07/28/16 [Rx] Docusate Sodium/Sennosides [Senna Plus] 2 tab PO BID 08/04/16 [History] Insulin Detemir [Levemir] 15 unit SQ BEDTIME 08/04/16 [History] Potassium Chloride [Klor-Con M20] 40 meq PO BID 08/04/16 [History] Patient Handouts: Urinary Tract Infection, Adult, Dysphagia Diet Level 2, Mechanically Altered, Suprapubic Catheter Home Guide Forms: ED Department Discharge Referrals: Ron Espinoza MD [Primary Care Provider] - - Discharge Summary/Plan Comment DC Time >30 min.: Yes (40) - Patient Data Vitals - Most Recent: Last Vital Signs Temp 98.1 F 08/08/16 08:23 Pulse 87 08/08/16 08:23 Resp 26 H 08/08/16 08:23 BP 134/73 08/08/16 08:23 Pulse Ox 95 08/08/16 08:23 Weight - Most Recent: 290 lb 8 oz I&O - Last 24 hours: Intake & Output 08/07/16 08/08/16 08/08/16 22:59 06:59 14:59 Intake Total 1520 500 360 Output Total 400 350 Balance 1120 150 360 Lab Results - Last 24 hrs: Laboratory Results - last 24 hr 08/07/16 08/07/16 08/08/16 Range/Units 17:02 21:20 06:00 WBC (4.23-9.07) K/mm3 RBC (4.63-6.08) M/mm3 Hgb (13.7-17.5) gm/L Hct (40.1-51.0) % MCV (79.0-92.2) fl MCH (25.7-32.2) pg MCHC (32.2-35.5) g/dl RDW Std Deviation (35.1-43.9) fL Plt Count (163-337) K/mm3 MPV (9.4-12.3) fl Neut % (Auto) (34.0-67.9) % Lymph % (Auto) (21.8-53.1) % [place] % (Auto) (5.3-12.2) % Eos % (Auto) (0.8-7.0) Baso % (Auto) (0.1-1.2) % Neut # (Auto) (1.78-5.38) K/mm3 Lymph # (Auto) (1.32-3.57) K/mm3 [place] # (Auto) (0.30-0.82) K/mm3 Eos # (Auto) (0.04-0.54) K/mm3 Baso # (Auto) (0.01-0.08) K/mm3 Manual Slide Review Sodium 142 (136-145) mEq/L Potassium 4.2 (3.5-5.1) mEq/L Chloride 110 H (98-107) mEq/L Carbon Dioxide 25 (21-32) mEq/L Anion Gap 11.2 (5-15) BUN 20 H (7-18) mg/dL Creatinine 0.8 (0.7-1.3) mg/dL Est Cr Clr Drug Dosing 62.94 mL/min Estimated GFR (MDRD) > 60 (>60) mL/min BUN/Creatinine Ratio 25.0 H (14-18) Glucose 118 H (83-115) mg/dL POC Glucose 129 H 194 H (83-110) mg/dL Calcium 8.1 L (8.5-10.1) mg/dL C-Reactive Protein 18.3 H* (<1.0) mg/dL 08/08/16 08/08/16 08/08/16 Range/Units 06:00 06:29 10:53 WBC 15.44 H (4.23-9.07) K/mm3 RBC 4.36 L (4.63-6.08) M/mm3 Hgb 12.9 L (13.7-17.5) gm/L Hct 41.1 (40.1-51.0) % MCV 94.3 H (79.0-92.2) fl MCH 29.6 (25.7-32.2) pg MCHC 31.4 L (32.2-35.5) g/dl RDW Std Deviation 46.7 H (35.1-43.9) fL Plt Count 213 (163-337) K/mm3 MPV 10.4 (9.4-12.3) fl Neut % (Auto) 73.7 H (34.0-67.9) % Lymph % (Auto) 12.2 L (21.8-53.1) % [place] % (Auto) 10.0 (5.3-12.2) % Eos % (Auto) 3.2 (0.8-7.0) Baso % (Auto) 0.2 (0.1-1.2) % Neut # (Auto) 11.37 H (1.78-5.38) K/mm3 Lymph # (Auto) 1.89 (1.32-3.57) K/mm3 [place] # (Auto) 1.55 H (0.30-0.82) K/mm3 Eos # (Auto) 0.49 (0.04-0.54) K/mm3 Baso # (Auto) 0.03 (0.01-0.08) K/mm3 Manual Slide Review Normal smear Sodium (136-145) mEq/L Potassium (3.5-5.1) mEq/L Chloride (98-107) mEq/L Carbon Dioxide (21-32) mEq/L Anion Gap (5-15) BUN (7-18) mg/dL Creatinine (0.7-1.3) mg/dL Est Cr Clr Drug Dosing mL/min Estimated GFR (MDRD) (>60) mL/min BUN/Creatinine Ratio (14-18) Glucose (83-115) mg/dL POC Glucose 117 H 131 H (83-110) mg/dL Calcium (8.5-10.1) mg/dL C-Reactive Protein (<1.0) mg/dL Med Orders - Current: Current Medications Acetaminophen (Tylenol) 650 mg PO Q6H PRN PRN Reason: Pain/Fever Aspirin (Aspirin) 81 mg PO DAILY [facility] Last Admin: 08/08/16 08:03 Dose: 81 mg Dextrose/Water (Dextrose 50% In Water) 50 ml IVPUSH ASDIRECTED PRN PRN Reason: Hypoglycemia Enoxaparin Sodium (Lovenox) 40 mg SUBCUT DAILY [facility] [place] Last Admin: 08/08/16 08:05 Dose: 40 mg Meropenem 1 gm/ Sodium (Chloride) 100 mls @ 200 mls/hr IV Q8H [facility] [place] Sodium Chloride (Normal Saline) 1,000 mls @ 75 mls/hr IV ASDIRECTED [facility] [place] Stop: 08/09/16 00:01 Insulin Aspart (Novolog) 0 unit SUBCUT QIDACANDBED [facility] [place] PRN Reason: Protocol Last Admin: 08/08/16 10:55 Dose: Not Given Metronidazole (Flagyl) 500 mg PO Q8H [facility] [place] Last Admin: 08/08/16 06:24 Dose: 500 mg Olanzapine (Zyprexa) 15 mg PO BEDTIME [facility] [place] Last Admin: 08/07/16 21:21 Dose: 15 mg Memantine 14 Mg 0 each PO DAILY [facility] [place] Last Admin: 08/08/16 08:41 Dose: Not Given Ketoconazole 1 (Applic) 0 each TOP DAILY PRN PRN Reason: SKIN COMPLICATIONS Potassium Chloride (Klor-Con M20) 40 meq PO BID [facility] [place] Last Admin: 08/08/16 08:04 Dose: 40 meq Saccharomyces Boulardii (Florastor) 250 mg PO BID [facility] [place] Last Admin: 08/08/16 08:03 Dose: 250 mg Sodium Chloride (Saline Flush) 10 ml FLUSH ASDIRECTED PRN PRN Reason: Keep Vein Open Temazepam (Restoril) 7.5 mg PO BEDTIME PRN PRN Reason: Insomnia Trospium (Sanctura) 20 mg PO BIDMEALS [facility] [place] Last Admin: 08/08/16 06:24 Dose: 20 mg Discontinued Medications Diphtheria/Tetanus/Acell Pertussis (Boostrix) 0.5 ml IM .ONCE ONE Stop: 08/05/16 08:06 Enoxaparin Sodium (Lovenox) 30 mg SUBCUT DAILY [facility] [place] Sodium Chloride (Normal Saline) 1,000 mls @ 75 mls/hr IV ASDIRECTED [facility] [place] Last Admin: 08/04/16 21:53 Dose: 75 mls/hr Ceftriaxone Sodium 2 gm/ (Sodium Chloride) 100 mls @ 200 mls/hr IV ONETIME ONE Stop: 08/04/16 22:39 Last Admin: 08/04/16 22:27 Dose: 200 mls/hr Dextrose/Sodium Chloride (Dextrose 5%-Normal Saline) 1,000 mls @ 75 mls/hr IV ASDIRECTED [facility] [place] Last Admin: 08/05/16 06:49 Dose: 75 mls/hr Metronidazole 500 mg/ Premix 100 mls @ 100 mls/hr IV Q8H [facility] [place] Last Admin: 08/07/16 05:56 Dose: 100 mls/hr Sodium Chloride (Sodium Chloride 0.45%) 1,000 mls @ 75 mls/hr IV ASDIRECTED [facility] [place] Last Infusion: 08/06/16 16:36 Dose: 50 mls/hr Ceftriaxone Sodium 2 gm/ (Sodium Chloride) 100 mls @ 200 mls/hr IV Q24H [facility] [place] Last Admin: 08/07/16 10:47 Dose: 200 mls/hr Sodium Chloride (Sodium Chloride 0.45%) 1,000 mls @ 50 mls/hr IV ASDIRECTED [facility] [place] Levofloxacin/Dextrose 750 mg/ (Premix) 150 mls @ 100 mls/hr IV Q24H [facility] [place] Last Admin: 08/08/16 11:50 Dose: Not Given Iopamidol (Isovue-370 (76%)) 25 ml IVPUSH ONETIME ONE Stop: 08/04/16 22:34 Last Admin: 08/04/16 22:57 Dose: 25 ml Iopamidol (Isovue-370 (76%)) 100 ml IVPUSH ONETIME ONE Stop: 08/04/16 22:34 Last Admin: 08/04/16 22:57 Dose: 100 ml Ondansetron HCl (Zofran) 4 mg IVPUSH ONETIME ONE Stop: 08/04/16 21:02 Last Admin: 08/04/16 21:53 Dose: 4 mg Pantoprazole Sodium (Protonix Iv) 40 mg IVPUSH ONETIME ONE Stop: 08/04/16 21:02 Last Admin: 08/04/16 21:55 Dose: 40 mg *Q Meaningful Use (DIS) - VTE *Q VTE Criteria *Q: - Stroke *Q Stroke Criteria *Q: - AMI *Q AMI Criteria *Q:
[2016-08-08] MEDS: Meropenem 500 MG in Sodium Chloride 0.9% 100 ML IV SCH (18:02)
[2016-08-08] MEDS: OLANZapine 5 MG Tab PO SCH (21:54)
[2016-08-09] MEDS: Meropenem 500 MG in Sodium Chloride 0.9% 100 ML IV SCH ×4 (01:07→17:27)
[2016-08-09] MEDS: metroNIDAZOLE 500 MG Tab PO SCH ×3 (06:19→21:08)
[2016-08-09] MEDS: Insulin Aspart 100 Units/ML 3 ML Pen SUBCUT SCH ×4 (06:31→21:08)
[2016-08-09] MEDS: Trospium 20 MG Tab PO SCH ×2 (06:32→17:32)
[2016-08-09] MEDS: Potassium Chloride 20 MEQ Tab.ER PO SCH ×2 (08:15→21:08)
[2016-08-09] MEDS: MEMANTINE 14 MG PO SCH (08:16)
[2016-08-09] MEDS: Enoxaparin 40 MG/0.4 ML Syringe SUBCUT SCH (08:16)
[2016-08-09] MEDS: Saccharomyces Boulardii (Probiotic) 250 MG Cap PO SCH ×2 (08:16→21:08)
[2016-08-09] MEDS: Aspirin 81 MG Tab.Chew PO SCH (08:16)
--- NOTE | 2016-08-09 10:55 | PCM.PN ---
- General Info Date of Service: 08/09/16 Functional Status: Reports: tolerating diet, urinating - Review of Systems General: Reports: No Symptoms HEENT: Reports: no symptoms Pulmonary: Reports: no symptoms Cardiovascular: Reports: No Symptoms Gastrointestinal: Reports: No symptoms Genitourinary: Reports: no symptoms Musculoskeletal: Reports: no symptoms Skin: Reports: no symptoms Neurological: Reports: No Symptoms Psychiatric: Reports: no symptoms - Patient Data Vitals - most recent: Last Vital Signs Temp 36.3 C 08/09/16 08:12 Pulse 90 08/09/16 08:12 Resp 24 H 08/09/16 08:12 BP 105/71 08/09/16 08:32 Pulse Ox 93 L 08/09/16 08:12 Weight - most recent: 132.585 kg I&O - last 24 hours: Intake & Output 08/08/16 08/09/16 08/09/16 22:59 06:59 14:59 Intake Total 1540 1500 Output Total 750 750 Balance 790 750 Lab Results last 24 hrs: Laboratory Results - last 24 hr 08/08/16 08/08/16 08/08/16 Range/Units 10:53 17:11 21:24 WBC (4.23-9.07) K/mm3 RBC (4.63-6.08) M/mm3 Hgb (13.7-17.5) gm/L Hct (40.1-51.0) % MCV (79.0-92.2) fl MCH (25.7-32.2) pg MCHC (32.2-35.5) g/dl RDW Std Deviation (35.1-43.9) fL Plt Count (163-337) K/mm3 MPV (9.4-12.3) fl Neut % (Auto) (34.0-67.9) % Lymph % (Auto) (21.8-53.1) % [place] % (Auto) (5.3-12.2) % Eos % (Auto) (0.8-7.0) Baso % (Auto) (0.1-1.2) % Neut # (Auto) (1.78-5.38) K/mm3 Lymph # (Auto) (1.32-3.57) K/mm3 [place] # (Auto) (0.30-0.82) K/mm3 Eos # (Auto) (0.04-0.54) K/mm3 Baso # (Auto) (0.01-0.08) K/mm3 Manual Slide Review Sodium (136-145) mEq/L Potassium (3.5-5.1) mEq/L Chloride (98-107) mEq/L Carbon Dioxide (21-32) mEq/L Anion Gap (5-15) BUN (7-18) mg/dL Creatinine (0.7-1.3) mg/dL Est Cr Clr Drug Dosing mL/min Estimated GFR (MDRD) (>60) mL/min BUN/Creatinine Ratio (14-18) Glucose (83-115) mg/dL POC Glucose 131 H 118 H 135 H (83-110) mg/dL Calcium (8.5-10.1) mg/dL C-Reactive Protein (<1.0) mg/dL 08/09/16 08/09/16 08/09/16 Range/Units 05:09 05:09 05:09 WBC 12.38 H (4.23-9.07) K/mm3 RBC 4.49 L (4.63-6.08) M/mm3 Hgb 13.2 L (13.7-17.5) gm/L Hct 41.6 (40.1-51.0) % MCV 92.7 H (79.0-92.2) fl MCH 29.4 (25.7-32.2) pg MCHC 31.7 L (32.2-35.5) g/dl RDW Std Deviation 46.1 H (35.1-43.9) fL Plt Count 248 (163-337) K/mm3 MPV 10.7 (9.4-12.3) fl Neut % (Auto) 64.8 (34.0-67.9) % Lymph % (Auto) 15.8 L (21.8-53.1) % [place] % (Auto) 12.3 H (5.3-12.2) % Eos % (Auto) 4.4 (0.8-7.0) Baso % (Auto) 0.4 (0.1-1.2) % Neut # (Auto) 8.03 H (1.78-5.38) K/mm3 Lymph # (Auto) 1.95 (1.32-3.57) K/mm3 [place] # (Auto) 1.52 H (0.30-0.82) K/mm3 Eos # (Auto) 0.55 H (0.04-0.54) K/mm3 Baso # (Auto) 0.05 (0.01-0.08) K/mm3 Manual Slide Review Abnormal smear Sodium 138 (136-145) mEq/L Potassium 4.0 (3.5-5.1) mEq/L Chloride 106 (98-107) mEq/L Carbon Dioxide 26 (21-32) mEq/L Anion Gap 10.0 (5-15) BUN 12 (7-18) mg/dL Creatinine 0.8 (0.7-1.3) mg/dL Est Cr Clr Drug Dosing 62.94 mL/min Estimated GFR (MDRD) > 60 (>60) mL/min BUN/Creatinine Ratio 15.0 (14-18) Glucose 118 H (83-115) mg/dL POC Glucose (83-110) mg/dL Calcium 7.9 L (8.5-10.1) mg/dL C-Reactive Protein 8.7 H* (<1.0) mg/dL 08/09/16 Range/Units 06:29 WBC (4.23-9.07) K/mm3 RBC (4.63-6.08) M/mm3 Hgb (13.7-17.5) gm/L Hct (40.1-51.0) % MCV (79.0-92.2) fl MCH (25.7-32.2) pg MCHC (32.2-35.5) g/dl RDW Std Deviation (35.1-43.9) fL Plt Count (163-337) K/mm3 MPV (9.4-12.3) fl Neut % (Auto) (34.0-67.9) % Lymph % (Auto) (21.8-53.1) % [place] % (Auto) (5.3-12.2) % Eos % (Auto) (0.8-7.0) Baso % (Auto) (0.1-1.2) % Neut # (Auto) (1.78-5.38) K/mm3 Lymph # (Auto) (1.32-3.57) K/mm3 [place] # (Auto) (0.30-0.82) K/mm3 Eos # (Auto) (0.04-0.54) K/mm3 Baso # (Auto) (0.01-0.08) K/mm3 Manual Slide Review Sodium (136-145) mEq/L Potassium (3.5-5.1) mEq/L Chloride (98-107) mEq/L Carbon Dioxide (21-32) mEq/L Anion Gap (5-15) BUN (7-18) mg/dL Creatinine (0.7-1.3) mg/dL Est Cr Clr Drug Dosing mL/min Estimated GFR (MDRD) (>60) mL/min BUN/Creatinine Ratio (14-18) Glucose (83-115) mg/dL POC Glucose 101 (83-110) mg/dL Calcium (8.5-10.1) mg/dL C-Reactive Protein (<1.0) mg/dL Med Orders - Current: Current Medications Acetaminophen (Tylenol) 650 mg PO Q6H PRN PRN Reason: Pain/Fever Aspirin (Aspirin) 81 mg PO DAILY [facility] Last Admin: 08/09/16 08:16 Dose: 81 mg Dextrose/Water (Dextrose 50% In Water) 50 ml IVPUSH ASDIRECTED PRN PRN Reason: Hypoglycemia Enoxaparin Sodium (Lovenox) 40 mg SUBCUT DAILY [facility] Last Admin: 08/09/16 08:16 Dose: 40 mg Meropenem 500 mg/ Sodium (Chloride) 100 mls @ 200 mls/hr IV Q6H [facility] Last Admin: 08/09/16 06:19 Dose: 200 mls/hr Insulin Aspart (Novolog) 0 unit SUBCUT QIDACANDBED [facility] PRN Reason: Protocol Last Admin: 08/09/16 06:31 Dose: Not Given Metronidazole (Flagyl) 500 mg PO Q8H [facility] Last Admin: 08/09/16 06:19 Dose: 500 mg Olanzapine (Zyprexa) 15 mg PO BEDTIME [facility] Last Admin: 08/08/16 21:54 Dose: 15 mg Memantine 14 Mg 0 each PO DAILY [facility] Last Admin: 08/09/16 08:16 Dose: Not Given Ketoconazole 1 (Applic) 0 each TOP DAILY PRN PRN Reason: SKIN COMPLICATIONS Potassium Chloride (Klor-Con M20) 40 meq PO BID [facility] Last Admin: 08/09/16 08:15 Dose: 40 meq Saccharomyces Boulardii (Florastor) 250 mg PO BID [facility] Last Admin: 08/09/16 08:16 Dose: 250 mg Sodium Chloride (Saline Flush) 10 ml FLUSH ASDIRECTED PRN PRN Reason: Keep Vein Open Temazepam (Restoril) 7.5 mg PO BEDTIME PRN PRN Reason: Insomnia Trospium (Sanctura) 20 mg PO BIDMEALS [facility] Last Admin: 08/09/16 06:32 Dose: 20 mg Discontinued Medications Diphtheria/Tetanus/Acell Pertussis (Boostrix) 0.5 ml IM .ONCE ONE Stop: 08/05/16 08:06 Enoxaparin Sodium (Lovenox) 30 mg SUBCUT DAILY [facility] Sodium Chloride (Normal Saline) 1,000 mls @ 75 mls/hr IV ASDIRECTED [facility] Last Admin: 08/04/16 21:53 Dose: 75 mls/hr Ceftriaxone Sodium 2 gm/ (Sodium Chloride) 100 mls @ 200 mls/hr IV ONETIME ONE Stop: 08/04/16 22:39 Last Admin: 08/04/16 22:27 Dose: 200 mls/hr Dextrose/Sodium Chloride (Dextrose 5%-Normal Saline) 1,000 mls @ 75 mls/hr IV ASDIRECTED [facility] Last Admin: 08/05/16 06:49 Dose: 75 mls/hr Metronidazole 500 mg/ Premix 100 mls @ 100 mls/hr IV Q8H [facility] Last Admin: 08/07/16 05:56 Dose: 100 mls/hr Sodium Chloride (Sodium Chloride 0.45%) 1,000 mls @ 75 mls/hr IV ASDIRECTED [facility] Last Infusion: 08/06/16 16:36 Dose: 50 mls/hr Ceftriaxone Sodium 2 gm/ (Sodium Chloride) 100 mls @ 200 mls/hr IV Q24H [facility] Last Admin: 08/07/16 10:47 Dose: 200 mls/hr Sodium Chloride (Sodium Chloride 0.45%) 1,000 mls @ 50 mls/hr IV ASDIRECTED [facility] Levofloxacin/Dextrose 750 mg/ (Premix) 150 mls @ 100 mls/hr IV Q24H [facility] Last Admin: 08/08/16 11:50 Dose: Not Given Meropenem 1 gm/ Sodium (Chloride) 100 mls @ 200 mls/hr IV Q8H [facility] Last Admin: 08/08/16 12:14 Dose: 200 mls/hr Sodium Chloride (Normal Saline) 1,000 mls @ 75 mls/hr IV ASDIRECTED [facility] Stop: 08/09/16 00:01 Last Admin: 08/08/16 15:51 Dose: 75 mls/hr Iopamidol (Isovue-370 (76%)) 25 ml IVPUSH ONETIME ONE Stop: 08/04/16 22:34 Last Admin: 08/04/16 22:57 Dose: 25 ml Iopamidol (Isovue-370 (76%)) 100 ml IVPUSH ONETIME ONE Stop: 08/04/16 22:34 Last Admin: 08/04/16 22:57 Dose: 100 ml Ondansetron HCl (Zofran) 4 mg IVPUSH ONETIME ONE Stop: 08/04/16 21:02 Last Admin: 08/04/16 21:53 Dose: 4 mg Pantoprazole Sodium (Protonix Iv) 40 mg IVPUSH ONETIME ONE Stop: 08/04/16 21:02 Last Admin: 08/04/16 21:55 Dose: 40 mg - Exam Quality Assessment: supplemental oxygen, urine catheter, DVT prophylaxis General: alert, oriented, no acute distress HEENT: Pupils equal, Pupils reactive, EOMI Neck: supple, trachea midline Lungs: Normal respiratory effort, Decreased breath sounds Cardiovascular: Regular Rate Abdomen: bowel sounds present, soft, no tenderness, no distension (Male) Exam: Deferred Back Exam: normal inspection Extremities: normal pulses Skin: warm Neurological: no new focal deficit. No: normal speech Psy/Mental Status: alert - Problem List Review Problem List Initiated/Reviewed/Updated: Yes - Plan Plan:: Impression/Plan: AUTI responding to change in IV ATBs C Diff by PCR treat started with Flagyl AMS, resolved close to baseline Dietary changes tolerated as directed by Speech Path Supportive Snf Meds Aspiration precautions GI/DVT prophylaxis LOS>96 hours
[2016-08-09] MEDS: OLANZapine 5 MG Tab PO SCH (21:08)
[2016-08-09] MEDS: Temazepam 7.5 MG Cap PO PRN (21:48)
[2016-08-09] MEDS ORDERED: Furosemide 20 MG/2 ML VIAL IVPUSH ONE (22:40)
[2016-08-09] MEDS ORDERED: Levalbuterol HCl 1.25 MG/3 ML Neb ONE (22:55)
[2016-08-10] MEDS: Meropenem 500 MG in Sodium Chloride 0.9% 100 ML IV SCH ×5 (00:07→23:37)
[2016-08-10] MEDS: metroNIDAZOLE 500 MG Tab PO SCH ×3 (05:44→21:13)
[2016-08-10] MEDS: Insulin Aspart 100 Units/ML 3 ML Pen SUBCUT SCH ×4 (06:13→21:17)
[2016-08-10] MEDS: Levalbuterol HCl 1.25 MG/3 ML Neb NEB SCH ×4 (06:26→20:14)
[2016-08-10] MEDS ORDERED: Furosemide 20 MG/2 ML VIAL IVPUSH ONE (06:49)
[2016-08-10] MEDS: Trospium 20 MG Tab PO SCH ×2 (07:02→17:36)
[2016-08-10] MEDS: Saccharomyces Boulardii (Probiotic) 250 MG Cap PO SCH ×2 (08:31→21:10)
[2016-08-10] MEDS: Potassium Chloride 20 MEQ Tab.ER PO SCH ×2 (08:31→21:09)
[2016-08-10] MEDS: Aspirin 81 MG Tab.Chew PO SCH (08:31)
[2016-08-10] MEDS: Enoxaparin 40 MG/0.4 ML Syringe SUBCUT SCH (08:31)
[2016-08-10] MEDS: MEMANTINE 14 MG PO SCH (08:32)
--- NOTE | 2016-08-10 09:34 | PCM.PN ---
- General Info Date of Service: 08/10/16 Subjective Update: Respiratory rate up to 440 per minute after 2200, transferred to ICU. Functional Status: Reports: tolerating diet, urinating - Review of Systems General: Reports: No Symptoms HEENT: Reports: no symptoms Pulmonary: Reports: shortness of breath (improved) Cardiovascular: Reports: No Symptoms Gastrointestinal: Reports: No symptoms Genitourinary: Reports: no symptoms Musculoskeletal: Reports: no symptoms Skin: Reports: no symptoms Neurological: Reports: No Symptoms Psychiatric: Reports: anxiety (query) - Patient Data Vitals - most recent: Last Vital Signs Temp 36.2 C 08/10/16 08:00 Pulse 96 08/10/16 08:00 Resp 24 H 08/10/16 08:00 BP 105/68 08/10/16 08:00 Pulse Ox 93 L 08/10/16 09:22 Weight - most recent: 134.263 kg I&O - last 24 hours: Intake & Output 08/09/16 08/10/16 08/10/16 22:59 06:59 14:59 Intake Total 855 320 Output Total 350 2250 300 Balance 505 -1930 -300 Lab Results last 24 hrs: Laboratory Results - last 24 hr 08/09/16 08/09/16 08/09/16 Range/Units 11:41 17:29 21:02 Sodium (136-145) mEq/L Potassium (3.5-5.1) mEq/L Chloride (98-107) mEq/L Carbon Dioxide (21-32) mEq/L Anion Gap (5-15) BUN (7-18) mg/dL Creatinine (0.7-1.3) mg/dL Est Cr Clr Drug Dosing mL/min Estimated GFR (MDRD) (>60) mL/min BUN/Creatinine Ratio (14-18) Glucose (83-115) mg/dL POC Glucose 135 H 109 161 H (83-110) mg/dL Calcium (8.5-10.1) mg/dL C-Reactive Protein (<1.0) mg/dL 08/10/16 08/10/16 Range/Units 05:35 05:35 Sodium 138 (136-145) mEq/L Potassium 4.0 (3.5-5.1) mEq/L Chloride 104 (98-107) mEq/L Carbon Dioxide 29 (21-32) mEq/L Anion Gap 9.0 (5-15) BUN 12 (7-18) mg/dL Creatinine 0.9 (0.7-1.3) mg/dL Est Cr Clr Drug Dosing 55.94 mL/min Estimated GFR (MDRD) > 60 (>60) mL/min BUN/Creatinine Ratio 13.3 L (14-18) Glucose 133 H (83-115) mg/dL POC Glucose (83-110) mg/dL Calcium 7.9 L (8.5-10.1) mg/dL C-Reactive Protein 6.0 H* (<1.0) mg/dL Med Orders - Current: Current Medications Acetaminophen (Tylenol) 650 mg PO Q6H PRN PRN Reason: Pain/Fever Aspirin (Aspirin) 81 mg PO DAILY [facility] Last Admin: 08/10/16 08:31 Dose: 81 mg Dextrose/Water (Dextrose 50% In Water) 50 ml IVPUSH ASDIRECTED PRN PRN Reason: Hypoglycemia Enoxaparin Sodium (Lovenox) 40 mg SUBCUT DAILY [facility] Last Admin: 08/10/16 08:31 Dose: 40 mg Meropenem 500 mg/ Sodium (Chloride) 100 mls @ 200 mls/hr IV Q6H [facility] Last Admin: 08/10/16 05:44 Dose: 200 mls/hr Insulin Aspart (Novolog) 0 unit SUBCUT QIDACANDBED [facility] PRN Reason: Protocol Last Admin: 08/10/16 06:13 Dose: Not Given Levalbuterol HCl (Xopenex) 1.25 mg NEB QIDRT [facility] Last Admin: 08/10/16 09:21 Dose: 1.25 mg Metronidazole (Flagyl) 500 mg PO Q8H [facility] Last Admin: 08/10/16 05:44 Dose: 500 mg Olanzapine (Zyprexa) 15 mg PO BEDTIME [facility] Last Admin: 08/09/16 21:08 Dose: 15 mg Memantine 14 Mg 0 each PO DAILY [facility] Last Admin: 08/10/16 08:32 Dose: Not Given Ketoconazole 1 (Applic) 0 each TOP DAILY PRN PRN Reason: SKIN COMPLICATIONS Potassium Chloride (Klor-Con M20) 40 meq PO BID [facility] Last Admin: 08/10/16 08:31 Dose: 40 meq Saccharomyces Boulardii (Florastor) 250 mg PO BID [facility] Last Admin: 08/10/16 08:31 Dose: 250 mg Sodium Chloride (Saline Flush) 10 ml FLUSH ASDIRECTED PRN PRN Reason: Keep Vein Open Temazepam (Restoril) 7.5 mg PO BEDTIME PRN PRN Reason: Insomnia Last Admin: 08/09/16 21:48 Dose: 7.5 mg Trospium (Sanctura) 20 mg PO BIDMEALS [facility] Last Admin: 08/10/16 07:02 Dose: 20 mg Discontinued Medications Diphtheria/Tetanus/Acell Pertussis (Boostrix) 0.5 ml IM .ONCE ONE Stop: 08/05/16 08:06 Enoxaparin Sodium (Lovenox) 30 mg SUBCUT DAILY [facility] Furosemide (Lasix) 20 mg IVPUSH NOW ONE Stop: 08/09/16 22:41 Last Admin: 08/09/16 23:08 Dose: 20 mg Furosemide (Lasix) 20 mg IVPUSH NOW ONE Stop: 08/10/16 06:50 Last Admin: 08/10/16 07:04 Dose: 20 mg Sodium Chloride (Normal Saline) 1,000 mls @ 75 mls/hr IV ASDIRECTED [facility] Last Admin: 08/04/16 21:53 Dose: 75 mls/hr Ceftriaxone Sodium 2 gm/ (Sodium Chloride) 100 mls @ 200 mls/hr IV ONETIME ONE Stop: 08/04/16 22:39 Last Admin: 08/04/16 22:27 Dose: 200 mls/hr Dextrose/Sodium Chloride (Dextrose 5%-Normal Saline) 1,000 mls @ 75 mls/hr IV ASDIRECTED [facility] Last Admin: 08/05/16 06:49 Dose: 75 mls/hr Metronidazole 500 mg/ Premix 100 mls @ 100 mls/hr IV Q8H [facility] Last Admin: 08/07/16 05:56 Dose: 100 mls/hr Sodium Chloride (Sodium Chloride 0.45%) 1,000 mls @ 75 mls/hr IV ASDIRECTED [facility] Last Infusion: 08/06/16 16:36 Dose: 50 mls/hr Ceftriaxone Sodium 2 gm/ (Sodium Chloride) 100 mls @ 200 mls/hr IV Q24H [facility] Last Admin: 08/07/16 10:47 Dose: 200 mls/hr Sodium Chloride (Sodium Chloride 0.45%) 1,000 mls @ 50 mls/hr IV ASDIRECTED [facility] Levofloxacin/Dextrose 750 mg/ (Premix) 150 mls @ 100 mls/hr IV Q24H [facility] Last Admin: 08/08/16 11:50 Dose: Not Given Meropenem 1 gm/ Sodium (Chloride) 100 mls @ 200 mls/hr IV Q8H [facility] Last Admin: 08/08/16 12:14 Dose: 200 mls/hr Sodium Chloride (Normal Saline) 1,000 mls @ 75 mls/hr IV ASDIRECTED [facility] Stop: 08/09/16 00:01 Last Admin: 08/08/16 15:51 Dose: 75 mls/hr Iopamidol (Isovue-370 (76%)) 25 ml IVPUSH ONETIME ONE Stop: 08/04/16 22:34 Last Admin: 08/04/16 22:57 Dose: 25 ml Iopamidol (Isovue-370 (76%)) 100 ml IVPUSH ONETIME ONE Stop: 08/04/16 22:34 Last Admin: 08/04/16 22:57 Dose: 100 ml Levalbuterol HCl (Xopenex) 1.25 mg NEB Q6HRRT [facility] Levalbuterol HCl (Xopenex) Confirm Administered Dose 1.25 mg .ROUTE .STK-MED ONE Stop: 08/09/16 22:56 Last Admin: 08/09/16 23:00 Dose: 1.25 mg Ondansetron HCl (Zofran) 4 mg IVPUSH ONETIME ONE Stop: 08/04/16 21:02 Last Admin: 08/04/16 21:53 Dose: 4 mg Pantoprazole Sodium (Protonix Iv) 40 mg IVPUSH ONETIME ONE Stop: 08/04/16 21:02 Last Admin: 08/04/16 21:55 Dose: 40 mg - Exam Quality Assessment: supplemental oxygen, urine catheter, DVT prophylaxis General: alert, oriented, no acute distress HEENT: Pupils equal, Pupils reactive Neck: supple, trachea midline Lungs: Normal respiratory effort, Decreased breath sounds, Rhonchi, Wheezing ( minimal) Cardiovascular: Regular Rate Abdomen: bowel sounds present, soft, no tenderness, no distension (Male) Exam: Deferred Back Exam: normal inspection Extremities: normal pulses Skin: warm Neurological: no new focal deficit, normal gait Psy/Mental Status: alert, anxious (no anxiety this am) - Problem List Review Problem List Initiated/Reviewed/Updated: Yes - My Orders Last 24 Hours: My Active Orders 08/09/16 22:42 Transfer Patient (Change bed) [ADT] Routine RT Aerosol Therapy [RC] ASDIRECTED 08/10/16 06:00 Levalbuterol HCl [Xopenex] 1.25 mg NEB QIDRT - Plan Plan:: Impression/Plan: Resp distress, transient, responded to IV Lasix CXR today AUTI responding to change in IV ATBs C Diff by PCR treat started with Flagyl AMS, resolved close to baseline Dietary changes tolerated as directed by Speech Path Supportive Retirement Meds Aspiration precautions GI/DVT prophylaxis LOS>96 hours
[2016-08-10] MEDS: OLANZapine 5 MG Tab PO SCH (21:12)
[2016-08-10] MEDS: Temazepam 7.5 MG Cap PO PRN (21:13)
[2016-08-10] MEDS ORDERED: Levalbuterol HCl 1.25 MG/3 ML Neb NEB SCH (23:00)
[2016-08-11] MEDS: Levalbuterol HCl 1.25 MG/3 ML Neb NEB SCH ×2 (05:07→09:45)
[2016-08-11] MEDS: Meropenem 500 MG in Sodium Chloride 0.9% 100 ML IV SCH ×2 (05:43→12:20)
[2016-08-11] MEDS: Trospium 20 MG Tab PO SCH ×2 (05:44→06:32)
[2016-08-11] MEDS: metroNIDAZOLE 500 MG Tab PO SCH (05:44)
[2016-08-11] MEDS: Insulin Aspart 100 Units/ML 3 ML Pen SUBCUT SCH ×2 (06:47→12:23)
[2016-08-11] MEDS ORDERED: Furosemide 40 MG Tab PO SCH (09:00)
[2016-08-11] MEDS ORDERED: Magnesium Oxide 400 MG Tab PO SCH (09:30)
[2016-08-11] MEDS: Saccharomyces Boulardii (Probiotic) 250 MG Cap PO SCH (09:51)
[2016-08-11] MEDS: Aspirin 81 MG Tab.Chew PO SCH (09:52)
[2016-08-11] MEDS: Enoxaparin 40 MG/0.4 ML Syringe SUBCUT SCH (09:52)
[2016-08-11] MEDS: Potassium Chloride 20 MEQ Tab.ER PO SCH (09:52)
--- NOTE | 2016-08-11 11:00 | PCM.DCSUM1 ---
<Flaquita Restrepo M - Last Filed: 08/11/16 12:40> Discharge Summary - Hospital Course Free Text/Narrative:: 86 year old [place] patient recently discharged for UTI, has indwelling suprapubic catheter presents with a fever and change in mental status. The patient's baseline is Alzheimer's dementia, he is nonverbal. He was recently at [facility]07/23/16-07/28/16; during that time frame including discharge, the patient received a total of 14 days of antibiotics. He was discharged on Keflex, the E Coli was musa sensitive. He has had multiple loose stools; he will be treated for AUTI as well as evaluated for C Diff. Patient was admitted to medical floor. Gentle hydration provided. Blood and urine cultures were negative. Initially he was treated with Rocephin x 4 days with minimal to no response with WBC and CRP. Merrem was added x 4 days with good response noted. C. Diff returned positive and he was started on flagyl IV which is recommended per Pharmacy for patient to have 14 day course and 7 day course past last dose of antibiotic. CXR was negative. He worked with PT/OT and BENCH WORKER for swallowing. He will be discharged on National Dysphagia Diet type 2, strongly recommeded per BENCH WORKER with ST to continue after discharge. Patient will be discharged back to [place] today, [place]' on Augmentin BID x 7 days and Flagyl TID x 14 days. He is to have follow up with his PCP, Dr. Espinoza within 5-7 days for recheck. - Discharge Data Discharge Date: 08/11/16 (admit date 08/05/16) Discharge Disposition: DC/Tfer to [facility] Condition: Good - Patient Summary/Data Operative Procedure(s) Performed: None Complications: None Consults: Consultations 08/06/16 11:46 Consult to Occupational Therapy [OT Evaluation and Treatment] [CONS] Routine Consult to Physical Therapy [PT Evaluation and Treatment] [CONS] Routine 08/06/16 11:53 Consult to Speech Language Pathology [BENCH WORKER Evaluation and Treatment] [CONS] Routine Labs Pending at D/C: None Recommended Follow-up Testing/Procedures: Follow up with PCP, Dr Espinoza within 5-7 days of discharge Strongly Recommend: -One on one for meal time; alternate liquids with solids, thin liquids, ground or national dysphagia diet level 2-- per BENCH WORKER recommendations Planned Operative Procedure(s) after DC: None Hospital Course: As above - Patient Instructions Diet: Heart Healthy Diet (dysphgia diet level 2 as above) Activity: As Tolerated Driving: Do Not Drive Showering/Bathing: May Shower Notify Provider of: Fever, Increased Pain, Swelling and Redness, Nausea and/or Vomiting - Discharge Plan Prescriptions/Med Rec: Amoxicillin/Potassium Clav [Augmentin 875-125 Tablet] 1 each PO BID #14 tablet Magnesium Oxide 400 mg PO DAILY #30 tablet metroNIDAZOLE [Flagyl] 500 mg PO Q8H #42 tablet Home Medications: Home Meds Acetaminophen [Acetaminophen 8 Hour] 650 mg PO BID 01/03/16 [History] Camphor/Menthol [Sarna Lotion] 1 applic TOP BID 01/03/16 [History] Ketoconazole [Nizoral 2% Crm] 1 applic TOP DAILY PRN 01/03/16 [History] Memantine [Namenda Xr] 14 mg PO DAILY 01/03/16 [History] OLANZapine [Zyprexa] 15 mg PO BEDTIME 01/03/16 [History] Polyethylene Glycol 3350 [MiraLAX] 17 gm PO DAILY 01/03/16 [History] Trospium Chloride 20 mg PO BIDMEALS 01/03/16 [History] Insulin Aspart [NovoLOG] 2 units SQ 1700 07/22/16 [History] Insulin Detemir [Levemir] 20 units SQ QAM 07/22/16 [History] Aspirin 81 mg PO DAILY 07/23/16 [History] Bisacodyl [Dulcolax] 10 mg RECTAL DAILY PRN 07/23/16 [History] Cranberry Extract [Cranberry] 405 mg PO BID 07/23/16 [History] Sennosides 17.2 mg PO DAILY PRN 07/23/16 [History] Zinc Oxide 1 applic TOP DAILY PRN 07/23/16 [History] Furosemide [Lasix] 40 mg PO DAILY #30 tablet 07/28/16 [Rx] Docusate Sodium/Sennosides [Senna Plus] 2 tab PO BID 08/04/16 [History] Insulin Detemir [Levemir] 15 unit SQ BEDTIME 08/04/16 [History] Potassium Chloride [Klor-Con M20] 40 meq PO BID 08/04/16 [History] Amoxicillin/Potassium Clav [Augmentin 875-125 Tablet] 1 each PO BID #14 tablet 08/11/16 [Rx] Magnesium Oxide 400 mg PO DAILY #30 tablet 08/11/16 [Rx] metroNIDAZOLE [Flagyl] 500 mg PO Q8H #42 tablet 08/11/16 [Rx] Patient Handouts: Urinary Tract Infection, Adult, Dysphagia Diet Level 2, Mechanically Altered, Suprapubic Catheter Home Guide Forms: ED Department Discharge Referrals: Ron Espinoza MD [Primary Care Provider] - - Discharge Summary/Plan Comment DC Time >30 min.: Yes (40 min) - General Info Date of Service: 08/11/16 Admission Dx/Problem (Free Text: Admission Diagnosis/Problem Admission Diagnosis/Problem UTI, Urinary tract infection following delivery Dominic is seen this morning resting comfortably in bed. Respirations without difficulty, no tachypnea or dyspnea. He is nonverbal but in no acute distress. Functional Status: Reports: pain controlled, tolerating diet, urinating ( suprapubic cath) - Review of Systems General: Reports: No Symptoms Systems Review Comment: difficult/unable to obtain as patient is nonverbal- resting comfortably in NAD. - Patient Data Vitals - Most Recent: Last Vital Signs Temp 98.4 F 08/11/16 07:52 Pulse 71 08/11/16 07:52 Resp 16 08/11/16 07:52 BP 118/54 L 08/11/16 07:52 Pulse Ox 92 L 08/11/16 09:46 Weight - Most Recent: 131.043 kg I&O - Last 24 hours: Intake & Output 08/10/16 08/11/16 08/11/16 22:59 06:59 14:59 Intake Total 715 900 Output Total 525 Balance 715 375 Lab Results - Last 24 hrs: Laboratory Results - last 24 hr 08/10/16 08/10/16 08/10/16 Range/Units 05:43 11:01 16:59 WBC (4.23-9.07) K/mm3 RBC (4.63-6.08) M/mm3 Hgb (13.7-17.5) gm/L Hct (40.1-51.0) % MCV (79.0-92.2) fl MCH (25.7-32.2) pg MCHC (32.2-35.5) g/dl RDW Std Deviation (35.1-43.9) fL Plt Count (163-337) K/mm3 MPV (9.4-12.3) fl Neut % (Auto) (34.0-67.9) % Lymph % (Auto) (21.8-53.1) % [place] % (Auto) (5.3-12.2) % Eos % (Auto) (0.8-7.0) Baso % (Auto) (0.1-1.2) % Neut # (Auto) (1.78-5.38) K/mm3 Lymph # (Auto) (1.32-3.57) K/mm3 [place] # (Auto) (0.30-0.82) K/mm3 Eos # (Auto) (0.04-0.54) K/mm3 Baso # (Auto) (0.01-0.08) K/mm3 Manual Slide Review Sodium (136-145) mEq/L Potassium (3.5-5.1) mEq/L Chloride (98-107) mEq/L Carbon Dioxide (21-32) mEq/L Anion Gap (5-15) BUN (7-18) mg/dL Creatinine (0.7-1.3) mg/dL Est Cr Clr Drug Dosing mL/min Estimated GFR (MDRD) (>60) mL/min BUN/Creatinine Ratio (14-18) Glucose (83-115) mg/dL POC Glucose 125 H 161 H 139 H (83-110) mg/dL Calcium (8.5-10.1) mg/dL Magnesium (1.8-2.4) mg/dl C-Reactive Protein (<1.0) mg/dL B-Natriuretic Peptide (0-100) pg/mL 08/10/16 08/11/16 08/11/16 Range/Units 21:16 05:35 05:35 WBC (4.23-9.07) K/mm3 RBC (4.63-6.08) M/mm3 Hgb (13.7-17.5) gm/L Hct (40.1-51.0) % MCV (79.0-92.2) fl MCH (25.7-32.2) pg MCHC (32.2-35.5) g/dl RDW Std Deviation (35.1-43.9) fL Plt Count (163-337) K/mm3 MPV (9.4-12.3) fl Neut % (Auto) (34.0-67.9) % Lymph % (Auto) (21.8-53.1) % [place] % (Auto) (5.3-12.2) % Eos % (Auto) (0.8-7.0) Baso % (Auto) (0.1-1.2) % Neut # (Auto) (1.78-5.38) K/mm3 Lymph # (Auto) (1.32-3.57) K/mm3 [place] # (Auto) (0.30-0.82) K/mm3 Eos # (Auto) (0.04-0.54) K/mm3 Baso # (Auto) (0.01-0.08) K/mm3 Manual Slide Review Sodium 139 (136-145) mEq/L Potassium 4.1 (3.5-5.1) mEq/L Chloride 105 (98-107) mEq/L Carbon Dioxide 28 (21-32) mEq/L Anion Gap 10.1 (5-15) BUN 11 (7-18) mg/dL Creatinine 0.9 (0.7-1.3) mg/dL Est Cr Clr Drug Dosing 55.94 mL/min Estimated GFR (MDRD) > 60 (>60) mL/min BUN/Creatinine Ratio 12.2 L (14-18) Glucose 133 H (83-115) mg/dL POC Glucose 192 H (83-110) mg/dL Calcium 8.0 L (8.5-10.1) mg/dL Magnesium 1.7 L (1.8-2.4) mg/dl C-Reactive Protein 5.0 H* (<1.0) mg/dL B-Natriuretic Peptide (0-100) pg/mL 08/11/16 08/11/16 08/11/16 Range/Units 05:35 05:35 05:45 WBC 11.53 H (4.23-9.07) K/mm3 RBC 4.49 L (4.63-6.08) M/mm3 Hgb 13.3 L (13.7-17.5) gm/L Hct 41.3 (40.1-51.0) % MCV 92.0 (79.0-92.2) fl MCH 29.6 (25.7-32.2) pg MCHC 32.2 (32.2-35.5) g/dl RDW Std Deviation 46.6 H (35.1-43.9) fL Plt Count 262 (163-337) K/mm3 MPV 10.1 (9.4-12.3) fl Neut % (Auto) 55.0 (34.0-67.9) % Lymph % (Auto) 19.5 L (21.8-53.1) % [place] % (Auto) 14.1 H (5.3-12.2) % Eos % (Auto) 4.7 (0.8-7.0) Baso % (Auto) 0.5 (0.1-1.2) % Neut # (Auto) 6.34 H (1.78-5.38) K/mm3 Lymph # (Auto) 2.25 (1.32-3.57) K/mm3 [place] # (Auto) 1.63 H (0.30-0.82) K/mm3 Eos # (Auto) 0.54 (0.04-0.54) K/mm3 Baso # (Auto) 0.06 (0.01-0.08) K/mm3 Manual Slide Review Normal smear Sodium (136-145) mEq/L Potassium (3.5-5.1) mEq/L Chloride (98-107) mEq/L Carbon Dioxide (21-32) mEq/L Anion Gap (5-15) BUN (7-18) mg/dL Creatinine (0.7-1.3) mg/dL Est Cr Clr Drug Dosing mL/min Estimated GFR (MDRD) (>60) mL/min BUN/Creatinine Ratio (14-18) Glucose (83-115) mg/dL POC Glucose 134 H (83-110) mg/dL Calcium (8.5-10.1) mg/dL Magnesium (1.8-2.4) mg/dl C-Reactive Protein (<1.0) mg/dL B-Natriuretic Peptide 21 (0-100) pg/mL Med Orders - Current: Current Medications Acetaminophen (Tylenol) 650 mg PO Q6H PRN PRN Reason: Pain/Fever Aspirin (Aspirin) 81 mg PO DAILY [facility] Last Admin: 04/17/17 09:52 Dose: 81 mg Dextrose/Water (Dextrose 50% In Water) 50 ml IVPUSH ASDIRECTED PRN PRN Reason: Hypoglycemia Enoxaparin Sodium (Lovenox) 40 mg SUBCUT DAILY [facility] Last Admin: 08/11/16 09:52 Dose: 40 mg Furosemide (Lasix) 40 mg PO DAILY [facility] Last Admin: 08/11/16 09:52 Dose: 40 mg Meropenem 500 mg/ Sodium (Chloride) 100 mls @ 200 mls/hr IV Q6H [facility] Last Admin: 08/11/16 05:43 Dose: 200 mls/hr Insulin Aspart (Novolog) 0 unit SUBCUT QIDACANDBED [facility] PRN Reason: Protocol Last Admin: 08/11/16 06:47 Dose: Not Given Levalbuterol HCl (Xopenex) 1.25 mg NEB QIDRT [facility] Last Admin: 08/11/16 09:45 Dose: 1.25 mg Magnesium Oxide (Magnesium Oxide) 400 mg PO DAILY [facility] Last Admin: 08/11/16 09:52 Dose: 400 mg Metronidazole (Flagyl) 500 mg PO Q8H [facility] Last Admin: 08/11/16 05:44 Dose: 500 mg Olanzapine (Zyprexa) 15 mg PO BEDTIME [facility] Last Admin: 08/10/16 21:12 Dose: 15 mg Memantine 14 Mg 0 each PO DAILY [facility] Last Admin: 08/10/16 08:32 Dose: Not Given Ketoconazole 1 (Applic) 0 each TOP DAILY PRN PRN Reason: SKIN COMPLICATIONS Potassium Chloride (Klor-Con M20) 40 meq PO BID [facility] Last Admin: 08/11/16 09:52 Dose: 40 meq Saccharomyces Boulardii (Florastor) 250 mg PO BID [facility] Last Admin: 08/11/16 09:51 Dose: 250 mg Sodium Chloride (Saline Flush) 10 ml FLUSH ASDIRECTED PRN PRN Reason: Keep Vein Open Temazepam (Restoril) 7.5 mg PO BEDTIME PRN PRN Reason: Insomnia Last Admin: 08/10/16 21:13 Dose: 7.5 mg Trospium (Sanctura) 20 mg PO BIDMEALS [facility] Last Admin: 08/11/16 06:32 Dose: Not Given Discontinued Medications Diphtheria/Tetanus/Acell Pertussis (Boostrix) 0.5 ml IM .ONCE ONE Stop: 08/05/16 08:06 Enoxaparin Sodium (Lovenox) 30 mg SUBCUT DAILY [facility] Furosemide (Lasix) 20 mg IVPUSH NOW ONE Stop: 08/09/16 22:41 Last Admin: 08/09/16 23:08 Dose: 20 mg Furosemide (Lasix) 20 mg IVPUSH NOW ONE Stop: 08/10/16 06:50 Last Admin: 08/10/16 07:04 Dose: 20 mg Sodium Chloride (Normal Saline) 1,000 mls @ 75 mls/hr IV ASDIRECTED [facility] Last Admin: 08/04/16 21:53 Dose: 75 mls/hr Ceftriaxone Sodium 2 gm/ (Sodium Chloride) 100 mls @ 200 mls/hr IV ONETIME ONE Stop: 08/04/16 22:39 Last Admin: 08/04/16 22:27 Dose: 200 mls/hr Dextrose/Sodium Chloride (Dextrose 5%-Normal Saline) 1,000 mls @ 75 mls/hr IV ASDIRECTED [facility] Last Admin: 08/05/16 06:49 Dose: 75 mls/hr Metronidazole 500 mg/ Premix 100 mls @ 100 mls/hr IV Q8H [facility] Last Admin: 08/07/16 05:56 Dose: 100 mls/hr Sodium Chloride (Sodium Chloride 0.45%) 1,000 mls @ 75 mls/hr IV ASDIRECTED [facility] Last Infusion: 08/06/16 16:36 Dose: 50 mls/hr Ceftriaxone Sodium 2 gm/ (Sodium Chloride) 100 mls @ 200 mls/hr IV Q24H [facility] Last Admin: 08/07/16 10:47 Dose: 200 mls/hr Sodium Chloride (Sodium Chloride 0.45%) 1,000 mls @ 50 mls/hr IV ASDIRECTED [facility] Levofloxacin/Dextrose 750 mg/ (Premix) 150 mls @ 100 mls/hr IV Q24H [facility] Last Admin: 08/08/16 11:50 Dose: Not Given Meropenem 1 gm/ Sodium (Chloride) 100 mls @ 200 mls/hr IV Q8H [facility] Last Admin: 08/08/16 12:14 Dose: 200 mls/hr Sodium Chloride (Normal Saline) 1,000 mls @ 75 mls/hr IV ASDIRECTED [facility] Stop: 08/09/16 00:01 Last Admin: 08/08/16 15:51 Dose: 75 mls/hr Iopamidol (Isovue-370 (76%)) 25 ml IVPUSH ONETIME ONE Stop: 08/04/16 22:34 Last Admin: 08/04/16 22:57 Dose: 25 ml Iopamidol (Isovue-370 (76%)) 100 ml IVPUSH ONETIME ONE Stop: 08/04/16 22:34 Last Admin: 08/04/16 22:57 Dose: 100 ml Levalbuterol HCl (Xopenex) 1.25 mg NEB Q6HRRT [facility] Levalbuterol HCl (Xopenex) Confirm Administered Dose 1.25 mg .ROUTE .STK-MED ONE Stop: 08/09/16 22:56 Last Admin: 08/09/16 23:00 Dose: 1.25 mg Ondansetron HCl (Zofran) 4 mg IVPUSH ONETIME ONE Stop: 08/04/16 21:02 Last Admin: 08/04/16 21:53 Dose: 4 mg Pantoprazole Sodium (Protonix Iv) 40 mg IVPUSH ONETIME ONE Stop: 08/04/16 21:02 Last Admin: 08/04/16 21:55 Dose: 40 mg - Exam Quality Assessment: Reports: DVT prophylaxis General: Reports: alert, no acute distress HEENT: Reports: Pupils equal, Pupils reactive Neck: Reports: supple Lungs: Reports: Clear to auscultation, Normal respiratory effort, Decreased breath sounds (to bases). Denies: Rales, Rhonchi, Wheezing Cardiovascular: Reports: Regular Rate, Regular Rhythm, Other (distant heart tones) Abdomen: Reports: bowel sounds present, soft, no tenderness, no distension (Male) Exam: Deferred Rectal (Males) Exam: Deferred Extremities: Reports: no calf tenderness, edema (trace to LE; teds bilat) Skin: Reports: warm, dry, intact Neurological: Reports: no new focal deficit, other (end stage dementia) Psy/Mental Status: Reports: alert, other (end stage dementia) *Q Meaningful Use (DIS) - VTE *Q VTE Criteria *Q: - Stroke *Q Stroke Criteria *Q: - AMI *Q AMI Criteria *Q: <Nyla Arenas - Last Filed: 08/11/16 13:49> Discharge Summary - Hospital Course Free Text/Narrative:: Adherence to diet is strongly advised to avoid untoward event; see above for summary of hospitalization. - Patient Summary/Data Consults: Consultations 08/06/16 11:46 Consult to Occupational Therapy [OT Evaluation and Treatment] [CONS] Routine Consult to Physical Therapy [PT Evaluation and Treatment] [CONS] Routine 08/06/16 11:53 Consult to Speech Language Pathology [BENCH WORKER Evaluation and Treatment] [CONS] Routine - Patient Data Vitals - Most Recent: Last Vital Signs Temp 36.9 C 08/11/16 11:35 Pulse 70 08/11/16 11:35 Resp 16 08/11/16 11:35 BP 129/78 08/11/16 11:35 Pulse Ox 87 L 08/11/16 13:33 I&O - Last 24 hours: Intake & Output 08/10/16 08/11/16 08/11/16 22:59 06:59 14:59 Intake Total 715 900 225 Output Total 525 1250 Balance 715 931 -1025 Lab Results - Last 24 hrs: Laboratory Results - last 24 hr 08/10/16 08/10/16 08/10/16 Range/Units 05:43 16:59 21:16 WBC (4.23-9.07) K/mm3 RBC (4.63-6.08) M/mm3 Hgb (13.7-17.5) gm/L Hct (40.1-51.0) % MCV (79.0-92.2) fl MCH (25.7-32.2) pg MCHC (32.2-35.5) g/dl RDW Std Deviation (35.1-43.9) fL Plt Count (163-337) K/mm3 MPV (9.4-12.3) fl Neut % (Auto) (34.0-67.9) % Lymph % (Auto) (21.8-53.1) % [place] % (Auto) (5.3-12.2) % Eos % (Auto) (0.8-7.0) Baso % (Auto) (0.1-1.2) % Neut # (Auto) (1.78-5.38) K/mm3 Lymph # (Auto) (1.32-3.57) K/mm3 [place] # (Auto) (0.30-0.82) K/mm3 Eos # (Auto) (0.04-0.54) K/mm3 Baso # (Auto) (0.01-0.08) K/mm3 Manual Slide Review Sodium (136-145) mEq/L Potassium (3.5-5.1) mEq/L Chloride (98-107) mEq/L Carbon Dioxide (21-32) mEq/L Anion Gap (5-15) BUN (7-18) mg/dL Creatinine (0.7-1.3) mg/dL Est Cr Clr Drug Dosing mL/min Estimated GFR (MDRD) (>60) mL/min BUN/Creatinine Ratio (14-18) Glucose (83-115) mg/dL POC Glucose 125 H 139 H 192 H (83-110) mg/dL Calcium (8.5-10.1) mg/dL Magnesium (1.8-2.4) mg/dl C-Reactive Protein (<1.0) mg/dL B-Natriuretic Peptide (0-100) pg/mL 08/11/16 08/11/16 08/11/16 Range/Units 05:35 05:35 05:35 WBC 11.53 H (4.23-9.07) K/mm3 RBC 4.49 L (4.63-6.08) M/mm3 Hgb 13.3 L (13.7-17.5) gm/L Hct 41.3 (40.1-51.0) % MCV 92.0 (79.0-92.2) fl MCH 29.6 (25.7-32.2) pg MCHC 32.2 (32.2-35.5) g/dl RDW Std Deviation 46.6 H (35.1-43.9) fL Plt Count 262 (163-337) K/mm3 MPV 10.1 (9.4-12.3) fl Neut % (Auto) 55.0 (34.0-67.9) % Lymph % (Auto) 19.5 L (21.8-53.1) % [place] % (Auto) 14.1 H (5.3-12.2) % Eos % (Auto) 4.7 (0.8-7.0) Baso % (Auto) 0.5 (0.1-1.2) % Neut # (Auto) 6.34 H (1.78-5.38) K/mm3 Lymph # (Auto) 2.25 (1.32-3.57) K/mm3 [place] # (Auto) 1.63 H (0.30-0.82) K/mm3 Eos # (Auto) 0.54 (0.04-0.54) K/mm3 Baso # (Auto) 0.06 (0.01-0.08) K/mm3 Manual Slide Review Normal smear Sodium 139 (136-145) mEq/L Potassium 4.1 (3.5-5.1) mEq/L Chloride 105 (98-107) mEq/L Carbon Dioxide 28 (21-32) mEq/L Anion Gap 10.1 (5-15) BUN 11 (7-18) mg/dL Creatinine 0.9 (0.7-1.3) mg/dL Est Cr Clr Drug Dosing 55.94 mL/min Estimated GFR (MDRD) > 60 (>60) mL/min BUN/Creatinine Ratio 12.2 L (14-18) Glucose 133 H (83-115) mg/dL POC Glucose (83-110) mg/dL Calcium 8.0 L (8.5-10.1) mg/dL Magnesium 1.7 L (1.8-2.4) mg/dl C-Reactive Protein 5.0 H* (<1.0) mg/dL B-Natriuretic Peptide (0-100) pg/mL 08/11/16 08/11/16 08/11/16 Range/Units 05:35 05:45 11:03 WBC (4.23-9.07) K/mm3 RBC (4.63-6.08) M/mm3 Hgb (13.7-17.5) gm/L Hct (40.1-51.0) % MCV (79.0-92.2) fl MCH (25.7-32.2) pg MCHC (32.2-35.5) g/dl RDW Std Deviation (35.1-43.9) fL Plt Count (163-337) K/mm3 MPV (9.4-12.3) fl Neut % (Auto) (34.0-67.9) % Lymph % (Auto) (21.8-53.1) % [place] % (Auto) (5.3-12.2) % Eos % (Auto) (0.8-7.0) Baso % (Auto) (0.1-1.2) % Neut # (Auto) (1.78-5.38) K/mm3 Lymph # (Auto) (1.32-3.57) K/mm3 [place] # (Auto) (0.30-0.82) K/mm3 Eos # (Auto) (0.04-0.54) K/mm3 Baso # (Auto) (0.01-0.08) K/mm3 Manual Slide Review Sodium (136-145) mEq/L Potassium (3.5-5.1) mEq/L Chloride (98-107) mEq/L Carbon Dioxide (21-32) mEq/L Anion Gap (5-15) BUN (7-18) mg/dL Creatinine (0.7-1.3) mg/dL Est Cr Clr Drug Dosing mL/min Estimated GFR (MDRD) (>60) mL/min BUN/Creatinine Ratio (14-18) Glucose (83-115) mg/dL POC Glucose 134 H 162 H (83-110) mg/dL Calcium (8.5-10.1) mg/dL Magnesium (1.8-2.4) mg/dl C-Reactive Protein (<1.0) mg/dL B-Natriuretic Peptide 21 (0-100) pg/mL Med Orders - Current: Current Medications Acetaminophen (Tylenol) 650 mg PO Q6H PRN PRN Reason: Pain/Fever Aspirin (Aspirin) 81 mg PO DAILY [facility] Last Admin: 08/11/16 09:52 Dose: 81 mg Dextrose/Water (Dextrose 50% In Water) 50 ml IVPUSH ASDIRECTED PRN PRN Reason: Hypoglycemia Enoxaparin Sodium (Lovenox) 40 mg SUBCUT DAILY [facility] Last Admin: 08/11/16 09:52 Dose: 40 mg Furosemide (Lasix) 40 mg PO DAILY [facility] Last Admin: 08/11/16 09:52 Dose: 40 mg Meropenem 500 mg/ Sodium (Chloride) 100 mls @ 200 mls/hr IV Q6H [facility] Last Admin: 08/11/16 12:20 Dose: 200 mls/hr Insulin Aspart (Novolog) 0 unit SUBCUT QIDACANDBED [facility] PRN Reason: Protocol Last Admin: 08/11/16 12:23 Dose: 1 unit Levalbuterol HCl (Xopenex) 1.25 mg NEB QIDRT [facility] Last Admin: 08/11/16 09:45 Dose: 1.25 mg Magnesium Oxide (Magnesium Oxide) 400 mg PO DAILY [facility] Last Admin: 08/11/16 09:52 Dose: 400 mg Metronidazole (Flagyl) 500 mg PO Q8H [facility] Last Admin: 08/11/16 05:44 Dose: 500 mg Olanzapine (Zyprexa) 15 mg PO BEDTIME [facility] Last Admin: 08/10/16 21:12 Dose: 15 mg Memantine 14 Mg 0 each PO DAILY [facility] Last Admin: 08/11/16 11:11 Dose: Not Given Ketoconazole 1 (Applic) 0 each TOP DAILY PRN PRN Reason: SKIN COMPLICATIONS Potassium Chloride (Klor-Con M20) 40 meq PO BID [facility] Last Admin: 08/11/16 09:52 Dose: 40 meq Saccharomyces Boulardii (Florastor) 250 mg PO BID [facility] Last Admin: 08/11/16 09:51 Dose: 250 mg Sodium Chloride (Saline Flush) 10 ml FLUSH ASDIRECTED PRN PRN Reason: Keep Vein Open Temazepam (Restoril) 7.5 mg PO BEDTIME PRN PRN Reason: Insomnia Last Admin: 08/10/16 21:13 Dose: 7.5 mg Trospium (Sanctura) 20 mg PO BIDMEALS [facility] Last Admin: 08/11/16 06:32 Dose: Not Given Discontinued Medications Diphtheria/Tetanus/Acell Pertussis (Boostrix) 0.5 ml IM .ONCE ONE Stop: 08/05/16 08:06 Last Admin: 08/11/16 12:25 Dose: 0.5 ml Enoxaparin Sodium (Lovenox) 30 mg SUBCUT DAILY [facility] Furosemide (Lasix) 20 mg IVPUSH NOW ONE Stop: 08/09/16 22:41 Last Admin: 08/09/16 23:08 Dose: 20 mg Furosemide (Lasix) 20 mg IVPUSH NOW ONE Stop: 08/10/16 06:50 Last Admin: 08/10/16 07:04 Dose: 20 mg Sodium Chloride (Normal Saline) 1,000 mls @ 75 mls/hr IV ASDIRECTED [facility] Last Admin: 08/04/16 21:53 Dose: 75 mls/hr Ceftriaxone Sodium 2 gm/ (Sodium Chloride) 100 mls @ 200 mls/hr IV ONETIME ONE Stop: 08/04/16 22:39 Last Admin: 08/04/16 22:27 Dose: 200 mls/hr Dextrose/Sodium Chloride (Dextrose 5%-Normal Saline) 1,000 mls @ 75 mls/hr IV ASDIRECTED [facility] Last Admin: 08/05/16 06:49 Dose: 75 mls/hr Metronidazole 500 mg/ Premix 100 mls @ 100 mls/hr IV Q8H [facility] Last Admin: 08/07/16 05:56 Dose: 100 mls/hr Sodium Chloride (Sodium Chloride 0.45%) 1,000 mls @ 75 mls/hr IV ASDIRECTED [facility] Last Infusion: 08/06/16 16:36 Dose: 50 mls/hr Ceftriaxone Sodium 2 gm/ (Sodium Chloride) 100 mls @ 200 mls/hr IV Q24H [facility] Last Admin: 08/07/16 10:47 Dose: 200 mls/hr Sodium Chloride (Sodium Chloride 0.45%) 1,000 mls @ 50 mls/hr IV ASDIRECTED [facility] Levofloxacin/Dextrose 750 mg/ (Premix) 150 mls @ 100 mls/hr IV Q24H [facility] Last Admin: 08/08/16 11:50 Dose: Not Given Meropenem 1 gm/ Sodium (Chloride) 100 mls @ 200 mls/hr IV Q8H [facility] Last Admin: 08/08/16 12:14 Dose: 200 mls/hr Sodium Chloride (Normal Saline) 1,000 mls @ 75 mls/hr IV ASDIRECTED [facility] Stop: 08/09/16 00:01 Last Admin: 08/08/16 15:51 Dose: 75 mls/hr Iopamidol (Isovue-370 (76%)) 25 ml IVPUSH ONETIME ONE Stop: 08/04/16 22:34 Last Admin: 08/04/16 22:57 Dose: 25 ml Iopamidol (Isovue-370 (76%)) 100 ml IVPUSH ONETIME ONE Stop: 08/04/16 22:34 Last Admin: 08/04/16 22:57 Dose: 100 ml Levalbuterol HCl (Xopenex) 1.25 mg NEB Q6HRRT YOON Levalbuterol HCl (Xopenex) Confirm Administered Dose 1.25 mg .ROUTE .STK-MED ONE Stop: 08/09/16 22:56 Last Admin: 08/09/16 23:00 Dose: 1.25 mg Ondansetron HCl (Zofran) 4 mg IVPUSH ONETIME ONE Stop: 08/04/16 21:02 Last Admin: 08/04/16 21:53 Dose: 4 mg Pantoprazole Sodium (Protonix Iv) 40 mg IVPUSH ONETIME ONE Stop: 08/04/16 21:02 Last Admin: 08/04/16 21:55 Dose: 40 mg *Q Meaningful Use (DIS) - VTE *Q VTE Criteria *Q: - Stroke *Q Stroke Criteria *Q: - AMI *Q AMI Criteria *Q:
[2016-08-11] MEDS: MEMANTINE 14 MG PO SCH (11:11)
--- NOTE | 2016-08-11 11:43 | CR ---
Chest: Frontal view of the chest was obtained. Comparison: Previous chest x-ray of 08/04/16. Slight atelectasis is noted above the left hemidiaphragm. Lungs otherwise are clear. Heart size and mediastinum are stable. Bony structures are grossly intact. Impression: 1. Mild atelectasis within the left base. Nothing acute is otherwise seen on frontal chest x-ray. Diagnostic code #2
[2016-08-11 11:54] VITALS: BP 129/78
== END 2016-08-11 13:19 | DRG 699 ==
LOC: JD.ED 20:07 → JD.MS 08-05 00:05 → JD.ICU 08-09 22:45 → JD.MS 08-10 18:00
PROVIDERS: ADMIT Internal Medicine Cardiovascular Disease; ATTEND Internal Medicine Cardiovascular Disease
DX: A41.9 Sepsis, unspecified organism (principal); T83.511A Infection and inflammatory reaction due to indwelling urethral catheter, initial encounter; A04.7 Enterocolitis due to Clostridium difficile; B96.20 Unspecified Escherichia coli [E. coli] as the cause of diseases classified elsewhere; R41.82 Altered mental status, unspecified; R06.09 Other forms of dyspnea; G30.9 Alzheimer's disease, unspecified; F02.80 Dementia in other diseases classified elsewhere, unspecified severity, without behavioral disturbance, psychotic disturbance, mood disturbance, and anxiety; R19.7 Diarrhea, unspecified; E11.40 Type 2 diabetes mellitus with diabetic neuropathy, unspecified; Z79.4 Long term (current) use of insulin; J44.9 Chronic obstructive pulmonary disease, unspecified; N40.0 Benign prostatic hyperplasia without lower urinary tract symptoms; Z93.50 Unspecified cystostomy status; Z87.440 Personal history of urinary (tract) infections; Z79.82 Long term (current) use of aspirin; Z79.899 Other long term (current) drug therapy; Z88.1 Allergy status to other antibiotic agents; Z23 Encounter for immunization
CPT/HCPCS: 36415; 71010; 74000; 74177; 80053; 81001; 83605; 83690; 83880; 84484; 85025; 85610; 85730; 86140; 87040 ×2; 87086; 87804 ×2; 93005; 96361; 96365; 96375; 99285; C9113; J0696; J2405; J7030; J7040; Q9967 ×2; 80048; 82962; 83735; 87493; 90471; 90715; 92526-GN; 92610-GN; 94640-76; 94664; 94760; 94761; 97161-GP; 97166-GO; A9270-GY; J1650; J1815-GY; J1956; J2185; J7042; Q9963